=== PATIENT | female | born 1980 | race Caucasian/White ===

== ENCOUNTER 2022-01-02 20:39 | Inpatient (IN) | payer MEDICAID, SELFPAY ==
[2022-01-02 20:48] VITALS: BMI 28.3
[2022-01-02 21:04] VITALS: BP 168/98; PULSE 128; RESP 18; TEMP 37.6; O2SAT 96
[2022-01-02 21:18] LABS: MANUAL DIFF FLAG NO
[2022-01-02 21:19] LABS: Basophils Percent Auto 0.3 % (0-2); Eosinophils Absolute Auto 0.1 X10*3/uL (0.0-0.4); Eosinophils Percent Auto 0.6 % (0-4); Hematocrit 36.5 % (37.0-47.0); Hemoglobin 12.4 g/dl (12.0-16.0); Imm Gran Abs Auto 0.03 X10*3/uL (0.00-0.03); Imm Gran Pct Auto 0.3 % (0.0-0.4); Lymphocytes Percent Auto 33.7 % (20-40); Mean Corpuscular Hemoglobin 30.9 pg (27.0-33.0); Monocytes Absolute Auto 0.7 X10*3/uL (0.1-1.2); Monocytes Percent Auto 7.6 % (2-11); Neutrophils Absolute Auto 5.2 x10*3/uL (2.0-8.3); Neutrophils Percent Auto 57.5 % (45-73); Platelet Count 245 X10*3/uL (160-400); Red Blood Count 4.01 X10*6/uL (4.20-5.50); Red Cell Distribution Width 14.5 % (11.0-16.0)
[2022-01-02 21:21] VITALS: PULSE 103
[2022-01-02 21:33] LABS: COVID-19 Test Negative (Negative); IDNOW Serial# 08D9AD1C
[2022-01-02 21:37] LABS: Ethanol 230 mg/dL
[2022-01-02 21:41] LABS: Alanine Aminotransferase 26 U/L (0-31); Albumin Level 4.1 g/dL (3.5-5.0); Alkaline Phosphatase 109 U/L (39-117); Anion Gap 15 (12-20); Aspartate Amino Transferase 32 U/L (5-31); Bilirubin Direct 0.2 mg/dL (0.0-0.5); Bilirubin Total 0.4 mg/dL (0.0-1.0); Blood Urea Nitrogen 6 mg/dL (9-16); Calcium 8.9 mg/dL (8.4-10.2); Carbon Dioxide 23 mmol/L (22-29); Chloride 108 mmol/L (96-108); Creatinine Clr Calc Pharmacy 84.1; Estimated Glomerular Filt Rate > 60; Glucose Random 119 mg/dL (60-115); Magnesium 1.8 mg/dL (1.6-2.6); Sodium 143 mmol/L (135-145)
[2022-01-02 21:58] LABS: Appearance Urine CLEAR; Color Urine YELLOW; Glucose Urine UA NEG (NEG); Leukocyte Esterase Urine NEG (NEG); Nitrite Urine NEG (NEG); Urine Blood NEG (NEG); Urine Ketones 5 MG/DL (NEG); Urine Protein TRACE MG/DL (NEG-TRACE)
[2022-01-02 22:00] LABS: UPreg QC Valid YES; Urine Pregnancy NEGATIVE (NEGATIVE)
[2022-01-02 22:14] LABS: Amphetamine Screen Urine Not Detected (Not Detect); Barbiturates, Urine Not Detected (Not Detect); Benzodiazepines Screen Urine Not Detected (Not Detect); Cannabinoid Screen Urine POSITIVE (Not Detect); Cocaine Screen Urine Not Detected (Not Detect); Fentanyl, urine Not Detected (Not Detect); Opiate Screen Urine Not Detected (Not Detect); Phencyclidine Screen Urine Not Detected (Not Detect)
[2022-01-02] MEDS: LORazepam 1 MG TABLET 2 MG PO (22:46)
--- NOTE | 2022-01-02 22:47 | ED_ITS ---
HPI - Psych General Chief Complaint: Psychiatric Symptoms Stated Complaint: SI Time Seen by Provider: 01/02/22 22:36 Source: patient and EMS Mode of arrival: EMS Limitations: other (Very anxious) History of Present Illness HPI Narrative: Patient comes to the emergency room by EMS. Earlier this afternoon, patient star alked to a [facility] office in [place], dated that she has tried killing herself by hanging, she has tried 2 days in a row. Patient has been off her medications. Patient was Section 12 and EMS brought the patient to emergency room. Patient denies homicidal ideation Related Data Allergies Allergy/AdvReac Type Severity Reaction Status Date / Time No Known Allergies Allergy Verified 01/02/22 20:52 Review of Systems Review of Systems: Constitutional : No Weight loss, No Fever, No Chills, No Night Sweats, No Fatigue, No Malaise ENT/Mouth : No Hearing loss, No Ear Pain, No Nasal Congestion, No Sinus Pain, No Hoarseness, No sore throat, No Rhinorrhea, No Swallowing Difficulty Eyes: No Eye Pain, No Swelling, No Redness, No Foreign Body, No Discharge, No Vision Changes Cardiovascular : No Chest Pain, No SOB, No Dyspnea on Exertion, No Orthopnea, No Edema, No Palpitations Respiratory : No Cough, No Sputum, No Wheezing, No Smoke Exposure, No Dyspnea Gastrointestinal : No Nausea, No Vomiting, No Diarrhea, No Constipation, No abdominal Pain, No Hematochezia, No Melena Genitourinary : no irregular bleeding, No Dysuria, No Urinary Frequency, No Hematuria, No Urinary Incontinence, No Urgency, No Flank Pain, No Urinary Flow Changes, No Hesitancy Musculoskeletal : No joint pain, No Myalgias, No Joint Swelling Skin : No Skin Lesions, No rash Neuro : No Weakness, No Numbness, No Paresthesias, No Loss of Consciousness, No Dizziness, No Headache Psych : Complaining of anxiety, depression, suicidal ideation, no homicidal ideation, struggling with alcohol abuse Heme/Lymph: No Bruising, No Bleeding,No Lymphadenopathy Endocrine : No Polyuria, No Polydipsia, No Temperature Intolerance PMFSH Past Medical History Medical History Alcohol abuse Depression Social History Social History Advance Directives: No Advance Directives Information Provided: Yes Physical Exam Vital Signs: Vital Signs: Last Vital Signs Temp 98.9 F 01/03/22 01:49 Pulse 110 H 01/03/22 01:49 Resp 20 01/03/22 01:49 BP 148/96 H 01/03/22 01:49 Pulse Ox 96 01/03/22 01:49 BMI result Body Mass Index 28.3 Const: Other: Appearance: Alert. Oriented X3. Very anxious, crying, hyperventilating, pacing Eyes: Pupils equal, round and reactive to light. ENT: Pharynx normal. Neck: Normal inspection. Neck supple. No lymph nodes noted. No crepitus CVS: Normal heart rate and rhythm. Pulses normal. Normal S1 and S2 Respiratory: No respiratory distress. Breath sounds normal. No Wheezing. No rales Abdomen: Soft and nontender. No rigidity. No distention. Skin: Skin warm and dry. Normal skin color. Normal skin turgor. Extremities: No lower extremity edema. No Lacerations. No Rash Neuro: Oriented X 3. No motor deficit. No sensory deficit. Moving all extremities. No slurred speech. CN 2 through 12 grossly intact Psych: calm, trying to cooperate, patient is very anxious, hyperventilating Course Course Course Narrative: Patient is on a Section 12. Patient will be given Ativan 2 mg p.o. Q 4-6 hours p.r.n. severe anxiety. [facility] network consult has been done in [place] office. They will continue following up. Patient as an inpatient bed search now. Patient's potassium had to be corrected with p.o., now recheck, 3.5. Physician observation started at 22:[address] out [address] Garcia [facility] - Psych Lab Data Result diagrams: 01/02/22 21:13 01/03/22 01:42 Labs: Lab Results 01/02/22 01/02/22 01/02/22 Range/Units 21:13 21:13 21:13 WBC 9.0 (4.8-10.8) X10*3/uL RBC 4.01 L (4.20-5.50) X10*6/uL Hgb 12.4 (12.0-16.0) g/dl Hct 36.5 L (37.0-47.0) % MCV 91.0 (80.0-98.0) fL MCH 30.9 (27.0-33.0) pg MCHC 34.0 (31.0-35.0) g/dl RDW 14.5 (11.0-16.0) % Plt Count 245 (160-400) X10*3/uL MPV 10.0 (9.4-12.3) fL Immature Gran % (Auto) 0.3 (0.0-0.4) % Neut % (Auto) 57.5 (45-73) % Lymph % (Auto) 33.7 (20-40) % [place] % (Auto) 7.6 (2-11) % Eos % (Auto) 0.6 (0-4) % Baso % (Auto) 0.3 (0-2) % Lymph # (Auto) 3.0 (1.2-4.9) X10*3/uL [place] # (Auto) 0.7 (0.1-1.2) X10*3/uL Eos # (Auto) 0.1 (0.0-0.4) X10*3/uL Baso # (Auto) 0.0 (0.0-0.2) X10*3/uL Abs Immat Gran (auto) 0.03 (0.00-0.03) X10*3/uL Absolute Neuts (auto) 5.2 (2.0-8.3) x10*3/uL Absolute Nucleated RBC 0.000 (0.0-0.012) X10*3/uL Nucleated RBC % (auto) 0.0 (0.0-0.2) /100WBC Sodium 143 (135-145) mmol/L Potassium 3.0 L (3.3-5.1) mmol/L Chloride 108 (96-108) mmol/L Carbon Dioxide 23 (22-29) mmol/L Anion Gap 15 (12-20) BUN 6 L (9-16) mg/dL Creatinine 0.80 (0.5-1.4) mg/dL Estim Creat Clear Calc 84.1 Estimated GFR > 60 Random Glucose 119 H (60-115) mg/dL Calcium 8.9 (8.4-10.2) mg/dL Magnesium 1.8 (1.6-2.6) mg/dL Total Bilirubin 0.4 (0.0-1.0) mg/dL Direct Bilirubin 0.2 (0.0-0.5) mg/dL AST 32 H (5-31) U/L ALT 26 (0-31) U/L Alkaline Phosphatase 109 (39-117) U/L Total Protein 7.0 (6.5-8.0) g/dL Albumin 4.1 (3.5-5.0) g/dL Urine Color Urine Appearance Urine pH (5.0-8.0) Ur Specific [place] (1.005-1.025) Urine Protein (NEG-TRACE) MG/DL Urine Glucose (UA) (NEG) MG/DL Urine Ketones (NEG) MG/DL Urine Blood (NEG) Urine Nitrite (NEG) Ur Leukocyte Esterase (NEG) Urine Test (NEGATIVE) Urine Opiates Screen (Not Detect) Urine Fentanyl Screen (Not Detect) Acetaminophen < 1 (<30) mcg/mL Ur Barbiturates Screen (Not Detect) Ur Phencyclidine Scrn (Not Detect) Ur Amphetamines Screen (Not Detect) U Benzodiazepines Scrn (Not Detect) Urine Cocaine Screen (Not Detect) U Marijuana (THC) Screen (Not Detect) Ethyl Alcohol mg/dL COVID-19 (AMI) Negative (Negative) COVID-19 Clin Com See Note 01/02/22 01/02/22 01/02/22 Range/Units 21:13 21:52 21:52 WBC (4.8-10.8) X10*3/uL RBC (4.20-5.50) X10*6/uL Hgb (12.0-16.0) g/dl Hct (37.0-47.0) % MCV (80.0-98.0) fL MCH (27.0-33.0) pg MCHC (31.0-35.0) g/dl RDW (11.0-16.0) % Plt Count (160-400) X10*3/uL MPV (9.4-12.3) fL Immature Gran % (Auto) (0.0-0.4) % Neut % (Auto) (45-73) % Lymph % (Auto) (20-40) % [place] % (Auto) (2-11) % Eos % (Auto) (0-4) % Baso % (Auto) (0-2) % Lymph # (Auto) (1.2-4.9) X10*3/uL [place] # (Auto) (0.1-1.2) X10*3/uL Eos # (Auto) (0.0-0.4) X10*3/uL Baso # (Auto) (0.0-0.2) X10*3/uL Abs Immat Gran (auto) (0.00-0.03) X10*3/uL Absolute Neuts (auto) (2.0-8.3) x10*3/uL Absolute Nucleated RBC (0.0-0.012) X10*3/uL Nucleated RBC % (auto) (0.0-0.2) /100WBC Sodium (135-145) mmol/L Potassium (3.3-5.1) mmol/L Chloride (96-108) mmol/L Carbon Dioxide (22-29) mmol/L Anion Gap (12-20) BUN (9-16) mg/dL Creatinine (0.5-1.4) mg/dL Estim Creat Clear Calc Estimated GFR Random Glucose (60-115) mg/dL Calcium (8.4-10.2) mg/dL Magnesium (1.6-2.6) mg/dL Total Bilirubin (0.0-1.0) mg/dL Direct Bilirubin (0.0-0.5) mg/dL AST (5-31) U/L ALT (0-31) U/L Alkaline Phosphatase (39-117) U/L Total Protein (6.5-8.0) g/dL Albumin (3.5-5.0) g/dL Urine Color Urine Appearance Urine pH (5.0-8.0) Ur Specific [place] (1.005-1.025) Urine Protein (NEG-TRACE) MG/DL Urine Glucose (UA) (NEG) MG/DL Urine Ketones (NEG) MG/DL Urine Blood (NEG) Urine Nitrite (NEG) Ur Leukocyte Esterase (NEG) Urine Test NEGATIVE (NEGATIVE) Urine Opiates Screen Not Detected (Not Detect) Urine Fentanyl Screen Not Detected (Not Detect) Acetaminophen (<30) mcg/mL Ur Barbiturates Screen Not Detected (Not Detect) Ur Phencyclidine Scrn Not Detected (Not Detect) Ur Amphetamines Screen Not Detected (Not Detect) U Benzodiazepines Scrn Not Detected (Not Detect) Urine Cocaine Screen Not Detected (Not Detect) U Marijuana (THC) Screen POSITIVE H (Not Detect) Ethyl Alcohol 230 mg/dL COVID-19 (AMI) (Negative) COVID-19 Clin Com 01/02/22 01/03/22 Range/Units 21:52 01:42 WBC (4.8-10.8) X10*3/uL RBC (4.20-5.50) X10*6/uL Hgb (12.0-16.0) g/dl Hct (37.0-47.0) % MCV (80.0-98.0) fL MCH (27.0-33.0) pg MCHC (31.0-35.0) g/dl RDW (11.0-16.0) % Plt Count (160-400) X10*3/uL MPV (9.4-12.3) fL Immature Gran % (Auto) (0.0-0.4) % Neut % (Auto) (45-73) % Lymph % (Auto) (20-40) % [place] % (Auto) (2-11) % Eos % (Auto) (0-4) % Baso % (Auto) (0-2) % Lymph # (Auto) (1.2-4.9) X10*3/uL [place] # (Auto) (0.1-1.2) X10*3/uL Eos # (Auto) (0.0-0.4) X10*3/uL Baso # (Auto) (0.0-0.2) X10*3/uL Abs Immat Gran (auto) (0.00-0.03) X10*3/uL Absolute Neuts (auto) (2.0-8.3) x10*3/uL Absolute Nucleated RBC (0.0-0.012) X10*3/uL Nucleated RBC % (auto) (0.0-0.2) /100WBC Sodium 141 (135-145) mmol/L Potassium 3.5 (3.3-5.1) mmol/L Chloride 107 (96-108) mmol/L Carbon Dioxide 23 (22-29) mmol/L Anion Gap 15 (12-20) BUN 6 L (9-16) mg/dL Creatinine 0.72 (0.5-1.4) mg/dL Estim Creat Clear Calc 93.4 Estimated GFR > 60 Random Glucose 96 (60-115) mg/dL Calcium 8.4 (8.4-10.2) mg/dL Magnesium (1.6-2.6) mg/dL Total Bilirubin (0.0-1.0) mg/dL Direct Bilirubin (0.0-0.5) mg/dL AST (5-31) U/L ALT (0-31) U/L Alkaline Phosphatase (39-117) U/L Total Protein (6.5-8.0) g/dL Albumin (3.5-5.0) g/dL Urine Color YELLOW Urine Appearance CLEAR Urine pH 7.0 (5.0-8.0) Ur Specific [place] 1.010 (1.005-1.025) Urine Protein TRACE (NEG-TRACE) MG/DL Urine Glucose (UA) NEG (NEG) MG/DL Urine Ketones 5 (NEG) MG/DL Urine Blood NEG (NEG) Urine Nitrite NEG (NEG) Ur Leukocyte Esterase NEG (NEG) Urine Test (NEGATIVE) Urine Opiates Screen (Not Detect) Urine Fentanyl Screen (Not Detect) Acetaminophen (<30) mcg/mL Ur Barbiturates Screen (Not Detect) Ur Phencyclidine Scrn (Not Detect) Ur Amphetamines Screen (Not Detect) U Benzodiazepines Scrn (Not Detect) Urine Cocaine Screen (Not Detect) U Marijuana (THC) Screen (Not Detect) Ethyl Alcohol mg/dL COVID-19 ([facility]I) (Negative) COVID-19 Clin Com Discharge Plan Discharge Clinical Impression: Depression, Suicidal ideation, Acute hypokalemia Patient Disposition: Still a Patient
[2022-01-02] MEDS: Potassium Chloride Packet 20 MEQ PACKET 40 MEQ PO (22:59)
[2022-01-02 23:29] LABS: Acetaminophen LAB < 1 mcg/mL (<30)
[2022-01-03 01:49] VITALS: BP 148/96; PULSE 110; RESP 20; TEMP 37.2; O2SAT 96
[2022-01-03 02:07] LABS: Anion Gap 15 (12-20); Blood Urea Nitrogen 6 mg/dL (9-16); Calcium 8.4 mg/dL (8.4-10.2); Carbon Dioxide 23 mmol/L (22-29); Chloride 107 mmol/L (96-108); Creatinine Clr Calc Pharmacy 93.4; Estimated Glomerular Filt Rate > 60; Glucose Random 96 mg/dL (60-115); Potassium 3.5 mmol/L (3.3-5.1); Sodium 141 mmol/L (135-145)
--- NOTE | 2022-01-03 06:32 | PC.NURSE ---
Patient slept through the night, Ativan 2 mg PO was administered at 2246 with positive effect, K 40 Meq administered at 2259 with + effect, Potassium 3.5, disposition per [facility] is section 12 inpatient bed search, asymptomatic of withdrawal at this time, behavior labile but non concerning, med rec completed/pending provider's approval, will continue to monitor.
[2022-01-03] MEDS: LORazepam 1 MG TABLET 2 MG PO ×3 (06:49→19:55)
[2022-01-03 06:52] VITALS: BP 151/110; PULSE 116; RESP 16; TEMP 36.6; O2SAT 99
--- NOTE | 2022-01-03 07:06 | PC.NURSE ---
patient appears to remain asleep at present respirations are even and unlabored patient appears in no distress
--- NOTE | 2022-01-03 10:59 | PHA.MEDREC ---
Pharmacy Consult ? Medication Reconciliation Pharmacy has completed the medication reconciliation. Spoke with patient in [facility] and also called [facility] pharmacy. Pt states she is in her 3rd week of titration for lamictal ( start at 25 mg daily and increase by 25 mg weekly up to 100 mg daily). Pt reports effexor was switched to pristiq.
[2022-01-03] MEDS: Omeprazole 40 MG CAPSULE.DR PO (11:47)
[2022-01-03] MEDS: lamoTRIgine 25 MG TABLET 75 MG PO (11:47)
[2022-01-03] MEDS: Folic Acid 1 MG TABLET PO (11:47)
[2022-01-03] MEDS: Thiamine HCL 100 MG TABLET PO (11:47)
[2022-01-03] MEDS: Gabapentin 600 MG TABLET PO ×2 (13:52→19:55)
[2022-01-03 14:00] VITALS: BP 153/104; PULSE 109; TEMP 36.8; O2SAT 97
[2022-01-03 14:30] LABS: Anion Gap 14 (12-20); Blood Urea Nitrogen 7 mg/dL (9-16); Calcium 9.1 mg/dL (8.4-10.2); Carbon Dioxide 24 mmol/L (22-29); Chloride 103 mmol/L (96-108); Creatinine Clr Calc Pharmacy 92.1; Estimated Glomerular Filt Rate > 60; Glucose Random 94 mg/dL (60-115); Potassium 3.6 mmol/L (3.3-5.1); Sodium 137 mmol/L (135-145)
[2022-01-03] MEDS: Melatonin 3 MG TABLET 9 MG PO (19:55)
[2022-01-03 19:56] VITALS: BP 171/108; PULSE 97; RESP 20; TEMP 36.8; O2SAT 99
[2022-01-04] MEDS: LORazepam 1 MG TABLET 2 MG PO ×2 (01:49→20:06)
[2022-01-04 01:51] VITALS: BP 152/108; PULSE 113; RESP 16; TEMP 36.8; O2SAT 95
--- NOTE | 2022-01-04 05:02 | PC.NURSE ---
atient slept through the night, Ativan 2 mg PO was administered at 1955 and 0149 with positive effect, disposition per [facility] is section 12 inpatient bed search, behavior non concerning, med rec completed/pending provider's approval, will continue to monitor.
[2022-01-04] MEDS: Omeprazole 40 MG CAPSULE.DR PO (06:24)
--- NOTE | 2022-01-04 07:07 | PC.NURSE ---
patient appears to remain asleep at present respirations are even and unlabored patient appears in no distress
[2022-01-04] MEDS: Gabapentin 600 MG TABLET PO ×3 (08:40→20:05)
[2022-01-04] MEDS: lamoTRIgine 25 MG TABLET 75 MG PO (08:40)
[2022-01-04] MEDS: Thiamine HCL 100 MG TABLET PO (08:40)
[2022-01-04] MEDS: Folic Acid 1 MG TABLET PO (08:40)
[2022-01-04 12:37] VITALS: BP 157/112; PULSE 107; O2SAT 97
[2022-01-04 16:43] VITALS: BP 157/101; PULSE 103; RESP 16; TEMP 36.6; O2SAT 96
[2022-01-04 20:03] VITALS: BP 145/109; PULSE 102; RESP 20; O2SAT 99
[2022-01-04] MEDS: Melatonin 3 MG TABLET 9 MG PO (20:05)
--- NOTE | 2022-01-05 | ECG_ITS ---
Test Reason : MEDICAL CLEARANCE Blood Pressure : / mmHG Vent. Rate : 103 BPM Atrial Rate : 103 BPM P-R Int : 154 ms QRS Dur : 078 ms QT Int : 348 ms P-R-T Axes : 061 012 039 degrees QTc Int : 455 ms Sinus tachycardia Septal infarct , age undetermined Abnormal ECG No previous ECGs available Referred By: Avila Riggins Electronically Signed By:Nolan Chino
[2022-01-05 06:14] VITALS: BP 143/98; PULSE 105; RESP 16; TEMP 36.8; O2SAT 96
[2022-01-05] MEDS: Omeprazole 40 MG CAPSULE.DR PO (06:18)
--- NOTE | 2022-01-05 06:36 | PC.NURSE ---
Patient slept through the night, no distress observed/reported, asymptomatic of withdrawal, medication compliant, disposition per [facility] is section 12 inpatient bed search, no update on bed search, behavior non concerning, VSS, will continue to monitor.
--- NOTE | 2022-01-05 07:17 | PC.NURSE ---
patient appears to remain asleep at present respirations are even and unlabored patient appears in no distress
[2022-01-05] MEDS: Folic Acid 1 MG TABLET PO (08:04)
[2022-01-05] MEDS: Thiamine HCL 100 MG TABLET PO (08:04)
[2022-01-05] MEDS: Gabapentin 600 MG TABLET PO ×3 (08:04→20:49)
[2022-01-05] MEDS: lamoTRIgine 25 MG TABLET 75 MG PO (08:05)
[2022-01-05] MEDS: hydrOXYzine HCL 50 MG TABLET PO (10:11)
--- NOTE | 2022-01-05 12:13 | PC.NURSE ---
patient required redirection two times today this visit for keeping appropriate boundaries w darlene during visit (not laying or sitting in bed with hands visible not under covers)
[2022-01-05 18:00] VITALS: BP 149/101; PULSE 109; RESP 18; TEMP 37.1; O2SAT 99
--- NOTE | 2022-01-05 19:40 | PC.ADMIT ---
Patient 41 year old ,with history of HTN and asthma who had seen in the ED for depression and SI . Patient reported feeling depressed , worthless , being ignored , isolated and decide to suicide herself .Patient has a distressed affect with poor judgment and relapsed on alcohol abuse for coping . Patient is alert, with auditory hallucination and oriented x4. No complaint of chest pain, no SOB, no cough , no nausea,no vomiting, no diarrhea. HS,LS,BS not listen to . Patient has a round bruise in the left knee and ambulates independently with steady gait. Patient was transferred via wheelchair to and was admitted on the unit today at 17:10 PM for continue care and better management.
[2022-01-05] MEDS: LORazepam 1 MG TABLET 2 MG PO (20:48)
[2022-01-05] MEDS: Melatonin 3 MG TABLET 9 MG PO (20:50)
[2022-01-06 06:00] VITALS: BP 146/97; PULSE 104; RESP 18; TEMP 36.7; O2SAT 96
[2022-01-06] MEDS: Omeprazole 40 MG CAPSULE.DR PO (06:38)
[2022-01-06] MEDS: Thiamine HCL 100 MG TABLET PO (08:29)
[2022-01-06] MEDS: Multivitamin TABLET 1 TAB PO (08:29)
[2022-01-06] MEDS: lamoTRIgine 25 MG TABLET 75 MG PO (08:29)
[2022-01-06] MEDS: Gabapentin 600 MG TABLET PO ×3 (08:29→20:40)
[2022-01-06] MEDS: Folic Acid 1 MG TABLET PO (08:29)
[2022-01-06 09:14] LABS: Estimated Average Glucose 108 mg/dL; Hemoglobin A1c % 5.4 %
[2022-01-06 09:27] LABS: Cholesterol 216 mg/dL; HDL Cholesterol 80 mg/dL; LDL Cholesterol Calculated 109 mg/dl; Magnesium 1.9 mg/dL (1.6-2.6); Triglycerides 138 mg/dL
[2022-01-06 09:47] LABS: Free T4 (Free Thyroxine) 0.74 ng/dL (0.71-1.85); Thyroid Stimulating Hormone 0.68 uIU/mL (0.32-4.0)
[2022-01-06 10:19] LABS: Folate 15.6 ng/mL (> or = 4.0); Vitamin B12 355 pg/mL (200-900)
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
[2022-01-06 14:27] VITALS: BP 162/88; PULSE 94; RESP 16; O2SAT 95
[2022-01-06 18:00] VITALS: BP 170/81; PULSE 110; TEMP 36.4
[2022-01-06] MEDS: traZODone HCL 50 MG TABLET PO ×2 (20:39→21:45)
[2022-01-06] MEDS: Melatonin 3 MG TABLET 9 MG PO (20:39)
[2022-01-06 23:30] VITALS: BP 140/94; PULSE 117; TEMP 36.9; O2SAT 97
[2022-01-06] MEDS: Acetaminophen 325 MG TABLET 650 MG PO (23:39)
[2022-01-06] MEDS: hydrOXYzine HCL 25 MG TABLET PO (23:39)
[2022-01-07] MEDS: cloNIDine HCL 0.1 MG TABLET 0.05 MG PO (01:35)
[2022-01-07 06:00] VITALS: BP 124/79; PULSE 94; RESP 18; TEMP 36.6; O2SAT 97
[2022-01-07] MEDS: Acetaminophen 325 MG TABLET 650 MG PO ×2 (06:27→16:54)
[2022-01-07] MEDS: Omeprazole 40 MG CAPSULE.DR PO (06:27)
[2022-01-07] MEDS: Folic Acid 1 MG TABLET PO (08:37)
[2022-01-07] MEDS: Gabapentin 600 MG TABLET PO ×3 (08:37→20:54)
[2022-01-07] MEDS: lamoTRIgine 25 MG TABLET 75 MG PO (08:37)
[2022-01-07] MEDS: Thiamine HCL 100 MG TABLET PO (08:38)
[2022-01-07] MEDS: Multivitamin TABLET 1 TAB PO (08:38)
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
[2022-01-07] MEDS: hydrOXYzine HCL 25 MG TABLET PO (14:51)
[2022-01-07] MEDS: DULoxetine HCl 20 MG CAPSULE.DR PO (16:54)
[2022-01-07] MEDS: Melatonin 3 MG TABLET 9 MG PO (20:54)
[2022-01-07] MEDS: traZODone HCL 50 MG TABLET PO ×2 (20:54→22:05)
[2022-01-07 21:55] VITALS: BP 141/80; PULSE 80; TEMP 36.4; O2SAT 97
[2022-01-08] MEDS: Omeprazole 40 MG CAPSULE.DR PO (06:06)
[2022-01-08 07:00] VITALS: BMI 26.2
[2022-01-08] MEDS: Gabapentin 600 MG TABLET PO ×3 (08:11→18:37)
[2022-01-08] MEDS: lamoTRIgine 25 MG TABLET 75 MG PO (08:11)
[2022-01-08] MEDS: DULoxetine HCl 30 MG CAPSULE.DR PO (08:11)
[2022-01-08] MEDS: Thiamine HCL 100 MG TABLET PO (08:11)
[2022-01-08] MEDS: Folic Acid 1 MG TABLET PO (08:11)
[2022-01-08] MEDS: Multivitamin TABLET 1 TAB PO (08:11)
[2022-01-08 08:13] VITALS: BP 142/87; PULSE 93; RESP 16; O2SAT 98
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
[2022-01-08 13:00] VITALS: BP 138/96; PULSE 110
[2022-01-08 18:00] VITALS: BP 149/97; PULSE 111; TEMP 36.6; O2SAT 97
[2022-01-08] MEDS: Acetaminophen 325 MG TABLET 650 MG PO (19:15)
[2022-01-08] MEDS: cloNIDine HCL 0.1 MG TABLET 0.05 MG PO (21:18)
[2022-01-08] MEDS: traZODone HCL 50 MG TABLET PO ×2 (21:18→23:02)
[2022-01-08] MEDS: Melatonin 3 MG TABLET 9 MG PO (21:19)
[2022-01-09] MEDS: Omeprazole 40 MG CAPSULE.DR PO (06:12)
[2022-01-09 07:01] VITALS: BP 122/77; PULSE 95; RESP 15; TEMP 36.4; O2SAT 97
[2022-01-09] MEDS: Multivitamin TABLET 1 TAB PO (08:28)
[2022-01-09] MEDS: lamoTRIgine 25 MG TABLET 75 MG PO (08:28)
[2022-01-09] MEDS: Thiamine HCL 100 MG TABLET PO (08:28)
[2022-01-09] MEDS: Folic Acid 1 MG TABLET PO (08:28)
[2022-01-09] MEDS: DULoxetine HCl 60 MG CAPSULE.DR PO (08:28)
[2022-01-09] MEDS: Gabapentin 600 MG TABLET PO (08:28)
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
[2022-01-09] MEDS: Naloxone HCl Nasal TAKE HOME 4 MG SPRAY NOSTRILALT (11:27)
--- NOTE | 2022-01-09 13:03 | MHC.RECOVSUP ---
PT.IS A 41YR OLD FEMALE WHO CAME TO THE ED FOR PSYCHIATRIC SYMPTOMS. PT WAS ADMITTED TO . I WAS ASKED TO SEE PT. BY MELY FROM THE CARE TEAM.THIS LAP MAKER WENT TO SEE PT. AND EXPLAINED TO HER WHAT I DO IN THE HOSPITAL. PT. STATED THAT SHE WAS LIVING IN A TENT WITH HER BOYFRIEND. BUT NOW IS LIVING WITH A FRIEND IN [facility]. PT. IS VERY INTERESTED IN HAVING A LAP MAKER. I EXPLAINED THAT I WILL MAKE A REFERRAL FOR HER TODAY. ALSO GAVE INFORMATION AND RESOURCES.
== END 2022-01-09 13:00 | disposition home or self-care (01) | DRG 754 ==
LOC: HO.ED 22:53 → HO.PM5 01-05 16:06
PROVIDERS: Admitting Provider Clinical Nurse Specialist Psychiatric/Mental Health, Adult; Emergency Provider Emergency Medicine; Visit Provider Clinical Nurse Specialist Psychiatric/Mental Health, Adult
DX: F32.A Depression, unspecified (principal); R45.851 Suicidal ideations; E87.6 Hypokalemia; F10.10 Alcohol abuse, uncomplicated; F43.12 Post-traumatic stress disorder, chronic; M79.7 Fibromyalgia; Z20.822 Contact with and (suspected) exposure to COVID-19; Z91.51 Personal history of suicidal behavior; Z79.899 Other long term (current) drug therapy
CPT/HCPCS: 36415; 80048; 80061; 80076; 80143; 80307; 81003; 81025; 82077; 82607; 82746; 83036; 83735; 84439; 84443; 85025; 87635; 93005; 99285

== ENCOUNTER 2022-02-27 12:47 | Inpatient (IN) | payer OTHER, MEDICAID, SELFPAY ==
[2022-02-27 12:54] VITALS: BP 149/99; PULSE 111; RESP 24; TEMP 37.6; O2SAT 100; BMI 26.5
--- NOTE | 2022-02-27 12:59 | ED.PSYCH ---
HPI - Psych General Chief Complaint: Psychiatric Symptoms Stated Complaint: SI Time Seen by Provider: 02/27/22 12:58 Source: patient Mode of arrival: ambulatory Limitations: no limitations History of Present Illness HPI Narrative: 41-year-old female with a history of PTSD, depression, bipolar disorder, fibromyalgia, alcohol abuse presents to the ER for evaluation of worsening depression and new onset of suicidal ideation. She presents with her moose who helps provide history. He reports that she has been off of her medications for the last 2 days because she ran out. She has been drinking heavily. When he woke up this morning she was already into her stash of alcohol and was intoxicated. She was banging her head against the door and saying she was going to hurt herself. The fiancee reports that a few nights ago she took a large amount of her gabapentin. He tries to keep her medications locked up and hit in because she she has tried overdose before. Patient is tearful and asking to go home. Patient was recently seen here in December and admitted to the psychiatry service for 3 days. She has a history of multiple suicide attempts in the past, last in 2017/2018 by overdosing on pills. Her last psychiatric hospitalization prior to the one in December was about 4 years ago. MD complaint: suicidal ideation and feels depressed Related Data Previous Rx's Medication Instructions Recorded albuterol sulfate 90 mcg/actuation 2 puff inhalation Q4H PRN 01/09/22 aerosol inhaler (ProAir HFA) Shortness Of Breath 30 days #6.7 grams clonidine HCl 0.1 mg tablet 0.05 mg PO TID PRN anxiety 30 days 01/09/22 #90 tabs duloxetine 60 mg capsule,delayed 60 mg PO DAILY 30 days #30 caps 01/09/22 release folic acid 1 mg tablet 1 mg PO DAILY 30 days #30 tabs 01/09/22 gabapentin 600 mg tablet 600 mg PO TID 30 days #90 tabs 01/09/22 hydroxyzine HCl 25 mg tablet 25 mg PO TID PRN Anxiety 30 days 01/09/22 #90 tabs lamotrigine 100 mg tablet 100 mg PO DAILY 30 days #30 tabs 01/09/22 lamotrigine 25 mg tablet (Lamictal) 75 mg PO DAILY 7 days #21 tabs 01/09/22 melatonin 10 mg tablet 10 mg PO BEDTIME PRN sleep 30 days 01/09/22 #30 tabs omeprazole 40 mg capsule,delayed 40 mg PO DAILY 30 days #30 caps 01/09/22 release thiamine HCl (vitamin B1) 100 mg 100 mg PO DAILY 30 days #30 tabs 01/09/22 tablet trazodone 50 mg tablet 50 mg PO BEDTIME PRN Insomnia 30 01/09/22 days #30 tabs Allergies Allergy/AdvReac Type Severity Reaction Status Date / Time No Known Allergies Allergy Verified 01/02/22 20:52 Review of Systems Review of Systems: Constitutional: No Fever, No Chills ENT/Mouth: No sore throat, No Rhinorrhea Cardiovascular: No Chest Pain, No SOB Respiratory: No Cough, No Sputum, No Wheezing, No dyspnea Gastrointestinal: No Nausea, No Vomiting, No Diarrhea, No abdominal Pain Genitourinary: No Dysuria, No Urinary Frequency, No Hematuria Musculoskeletal: No joint pain, No Myalgias Skin: No Skin Lesions, No rash Neuro: No Weakness, No Numbness, No Dizziness, No Headache Psych: + Anxiety/Panic, + Depression, +SI, No HI, No AH, No VH Heme/Lymph: No Bruising Endocrine: No Polyuria, No Polydipsia [facility] Past Medical History Medical History (Updated 02/27/22 @ 14:59 by APOLLO Easton) Alcohol abuse Chronic post-traumatic stress disorder (PTSD) Depression Fibromyalgia Social History Social History Household Members: Spouse Household Members Other:: yes. Housing: Other Housing Other:: Mobile Home. Do you presently have visiting nurse or other home services: No Patient Tobacco Use Status: Former Tobacco user Quit Date: No. Tobacco use type: Cigarette e-Cigarette/Vaping Use: Never Used Second Hand Smoke Exposure: Yes Substance Use Type: Marijuana and Caffiene Advance Directives: No Advance Directives Information Provided: No service: No Sexual orientation: Straight/Heterosexual Physical Exam Vital Signs: Vital Signs: Last Vital Signs Temp 99.6 F 02/27/22 12:54 Pulse 111 H 02/27/22 12:54 Resp 24 H 02/27/22 12:54 BP 149/99 H 02/27/22 12:54 Pulse Ox 100 02/27/22 12:54 O2 Del Method 02/27/22 12:54 BMI result Body Mass Index 26.5 Appearance: Alert. Oriented X3. Anxious, rocking back and forth on the bed. Eyes: Pupils equal, round and reactive to light. ENT: Pharynx normal. No upper dentition. Mucous moist mucous membranes. Smells of alcohol Neck: Normal inspection. Neck supple. CVS: Tachycardic, regular rhythm. Pulses normal. Respiratory: No respiratory distress. Breath sounds normal. Abdomen: Soft and nontender. +BS x4 Skin: Skin warm and dry. Normal skin color. Normal skin turgor. No rashes. Extremities: No lower extremity edema. Neuro/pysch: Oriented X 3. Anxious, hyperverbal, focused on leaving the emergency department. Makes eye contact, normal speech. Cranial nerves X-XII are intact. Moves all extremities, nonfocal. Course Course Course Narrative: 41-year-old female with history of alcoholism, fibromyalgia, bipolar disorder, PTSD, depression presenting to the ER with suicidal ideation, concerning behaviors per her so the onset a and alcohol intoxication. Patient smells of alcohol, is anxious and tearful, asking to go home. Her fiance aches breast concerning behaviors including intentional overdose of her gabapentin a few days ago and self-destructive behavior. Will get ETOH level, basic lab workup and have crisis team evaluate her when she is sober. Reevaluation(s) Reevaluation #1: A alcohol level positive at 405. U tox is positive for cocaine and marijuana. [place] [address]. No obvious signs of infection at this time. Urinalysis is negative. She denies any fever, cough, shortness of breath. No nausea, vomiting or diarrhea. Possible stress reaction. Will continue to monitor. Will place patient in physician observation at this time. Patient needs more time to metabolize substances in become sober for crisis evaluation. At the time of physician observation initiation patient was alert and oriented, anxious and wanting to go home. Tachycardia has resolved, heart rates high 90s. Lungs are clear. She is nonfocal. Will continue monitor. Time: 15:42 MDM - Psych Lab Data Result diagrams: 02/27/22 13:46 02/27/22 13:46 Labs: Lab Results 02/27/22 02/27/22 02/27/22 Range/Units 13:19 13:19 13:19 WBC (4.8-10.8) X10*3/uL RBC (4.20-5.50) X10*6/uL Hgb (12.0-16.0) g/dl Hct (37.0-47.0) % MCV (80.0-98.0) fL MCH (27.0-33.0) pg MCHC (31.0-35.0) g/dl RDW (11.0-16.0) % Plt Count (160-400) X10*3/uL MPV (9.4-12.3) fL Immature Gran % (Auto) (0.0-0.4) % Neut % (Auto) (45-73) % Lymph % (Auto) (20-40) % Christian % (Auto) (2-11) % Eos % (Auto) (0-4) % Baso % (Auto) (0-2) % Lymph # (Auto) (1.2-4.9) X10*3/uL Christian # (Auto) (0.1-1.2) X10*3/uL Eos # (Auto) (0.0-0.4) X10*3/uL Baso # (Auto) (0.0-0.2) X10*3/uL Abs Immat Gran (auto) (0.00-0.03) X10*3/uL Absolute Neuts (auto) (2.0-8.3) x10*3/uL Absolute Nucleated RBC (0.0-0.012) X10*3/uL Nucleated RBC % (auto) (0.0-0.2) /100WBC Sodium (135-145) mmol/L Potassium (3.3-5.1) mmol/L Chloride (96-108) mmol/L Carbon Dioxide (22-29) mmol/L Anion Gap (12-20) BUN (9-16) mg/dL Creatinine (0.5-1.4) mg/dL Estim Creat Clear Calc Estimated GFR Random Glucose (60-115) mg/dL Calcium (8.4-10.2) mg/dL Magnesium (1.6-2.6) mg/dL Total Bilirubin (0.0-1.0) mg/dL Direct Bilirubin (0.0-0.5) mg/dL AST (5-31) U/L ALT (0-31) U/L Alkaline Phosphatase (39-117) U/L Total Protein (6.5-8.0) g/dL Albumin (3.5-5.0) g/dL Urine Color STRAW Urine Appearance HAZY Urine pH 5.5 (5.0-8.0) Ur Specific [place] <= 1.005 (1.005-1.025) Urine Protein NEG (NEG-TRACE) MG/DL Urine Glucose (UA) NEG (NEG) MG/DL Urine Ketones NEG (NEG) MG/DL Urine Blood NEG (NEG) Urine Nitrite NEG (NEG) Ur Leukocyte Esterase NEG (NEG) Urine Test NEGATIVE (NEGATIVE) Urine Opiates Screen (Not Detect) Urine Fentanyl Screen (Not Detect) Ur Barbiturates Screen (Not Detect) Ur Phencyclidine Scrn (Not Detect) Ur Amphetamines Screen (Not Detect) U Benzodiazepines Scrn (Not Detect) Urine Cocaine Screen (Not Detect) U Marijuana (THC) Screen (Not Detect) Ethyl Alcohol mg/dL COVID-19 ([facility]I) Negative (Negative) COVID-19 Clin Com See Note 02/27/22 02/27/22 02/27/22 Range/Units 13:19 13:46 13:46 WBC 16.1 H (4.8-10.8) X10*3/uL RBC 3.91 L (4.20-5.50) X10*6/uL Hgb 12.2 (12.0-16.0) g/dl Hct 35.8 L (37.0-47.0) % MCV 91.6 (80.0-98.0) fL MCH 31.2 (27.0-33.0) pg MCHC 34.1 (31.0-35.0) g/dl RDW 16.9 H (11.0-16.0) % Plt Count 288 (160-400) X10*3/uL MPV 9.4 (9.4-12.3) fL Immature Gran % (Auto) 0.6 H (0.0-0.4) % Neut % (Auto) 80.0 H (45-73) % Lymph % (Auto) 13.5 L (20-40) % Christian % (Auto) 5.6 (2-11) % Eos % (Auto) 0.1 (0-4) % Baso % (Auto) 0.2 (0-2) % Lymph # (Auto) 2.2 (1.2-4.9) X10*3/uL Christian # (Auto) 0.9 (0.1-1.2) X10*3/uL Eos # (Auto) 0.0 (0.0-0.4) X10*3/uL Baso # (Auto) 0.0 (0.0-0.2) X10*3/uL Abs Immat Gran (auto) 0.09 H (0.00-0.03) X10*3/uL Absolute Neuts (auto) 12.9 H (2.0-8.3) x10*3/uL Absolute Nucleated RBC 0.000 (0.0-0.012) X10*3/uL Nucleated RBC % (auto) 0.0 (0.0-0.2) /100WBC Sodium 146 H (135-145) mmol/L Potassium 3.4 (3.3-5.1) mmol/L Chloride 111 H (96-108) mmol/L Carbon Dioxide 20 L (22-29) mmol/L Anion Gap 18 (12-20) BUN 10 (9-16) mg/dL Creatinine 0.81 (0.5-1.4) mg/dL Estim Creat Clear Calc 80.5 Estimated GFR > 60 Random Glucose 104 (60-115) mg/dL Calcium 8.5 D (8.4-10.2) mg/dL Magnesium 2.0 (1.6-2.6) mg/dL Total Bilirubin 0.4 (0.0-1.0) mg/dL Direct Bilirubin 0.2 (0.0-0.5) mg/dL AST 30 (5-31) U/L ALT 19 (0-31) U/L Alkaline Phosphatase 93 (39-117) U/L Total Protein 7.5 (6.5-8.0) g/dL Albumin 4.6 (3.5-5.0) g/dL Urine Color Urine Appearance Urine pH (5.0-8.0) Ur Specific [place] (1.005-1.025) Urine Protein (NEG-TRACE) MG/DL Urine Glucose (UA) (NEG) MG/DL Urine Ketones (NEG) MG/DL Urine Blood (NEG) Urine Nitrite (NEG) Ur Leukocyte Esterase (NEG) Urine Test (NEGATIVE) Urine Opiates Screen Not Detected (Not Detect) Urine Fentanyl Screen Not Detected (Not Detect) Ur Barbiturates Screen Not Detected (Not Detect) Ur Phencyclidine Scrn Not Detected (Not Detect) Ur Amphetamines Screen Not Detected (Not Detect) U Benzodiazepines Scrn Not Detected (Not Detect) Urine Cocaine Screen POSITIVE H (Not Detect) U Marijuana (THC) Screen POSITIVE H (Not Detect) Ethyl Alcohol 405 H* mg/dL COVID-19 ([facility]) (Negative) COVID-19 Clin Com Discharge Plan Discharge Clinical Impression: Alcohol intoxication Patient Disposition: Still a Patient Prescriptions: No Action clonidine HCl 0.1 mg Tablet 0.05 mg PO TID PRN (Reason: anxiety) 30 Days Qty: 90 0RF Protocol: Hold for SBP< HOLD for SBP < : 90 hydroxyzine HCl 25 mg Tablet 25 mg PO TID PRN (Reason: Anxiety) 30 Days Qty: 90 0RF lamotrigine 100 mg tablet 100 mg PO DAILY 30 Days Qty: 30 0RF Rx Instructions: start taking 100mg daily 01/16/22 duloxetine 60 mg Capsule,Delayed Release(Dr/Ec) 60 mg PO DAILY 30 Days Qty: 30 0RF trazodone 50 mg Tablet 50 mg PO BEDTIME PRN (Reason: Insomnia) 30 Days Qty: 30 0RF gabapentin 600 mg Tablet 600 mg PO TID 30 Days Qty: 90 0RF thiamine HCl (vitamin B1) 100 mg Tablet 100 mg PO DAILY 30 Days Qty: 30 0RF omeprazole 40 mg Capsule,Delayed Release(Dr/Ec) 40 mg PO DAILY 30 Days Qty: 30 0RF lamotrigine [Lamictal] 25 mg Tablet 75 mg PO DAILY 7 Days Qty: 21 0RF Rx Instructions: take 75mg for 1 week, then take 100mg daily folic acid 1 mg Tablet 1 mg PO DAILY 30 Days Qty: 30 0RF albuterol sulfate [ProAir HFA] 90 mcg/actuation Hfa Aerosol Inhaler 2 puff INHALATION Q4H PRN (Reason: Shortness Of Breath) 30 Days Qty: 6.7 0RF melatonin 10 mg Tablet 10 mg PO BEDTIME PRN (Reason: sleep) 30 Days Qty: 30 0RF
--- NOTE | 2022-02-27 13:20 | PC.NURSE ---
supplemental note to triage patient seems moderately intoxicated and endorses she has had recent SI no clear plan. desires no NRT. states she started drinking last night, endorses rcent thc use. states her sisters darlene killed self unclear when. patient stated off meds two weeks.
[2022-02-27 13:29] LABS: Appearance Urine HAZY; Color Urine STRAW; Glucose Urine UA NEG (NEG); Leukocyte Esterase Urine NEG (NEG); Nitrite Urine NEG (NEG); PH 5.5 (5.0-8.0); Specific Gravity - Urine <= 1.005 (1.005-1.025); Urine Blood NEG (NEG); Urine Ketones NEG (NEG); Urine Protein NEG (NEG-TRACE)
[2022-02-27 13:32] LABS: UPreg QC Valid YES; Urine Pregnancy NEGATIVE (NEGATIVE)
[2022-02-27 13:42] LABS: COVID-19 Test Negative (Negative)
[2022-02-27 13:48] LABS: Amphetamine Screen Urine Not Detected (Not Detect); Barbiturates, Urine Not Detected (Not Detect); Benzodiazepines Screen Urine Not Detected (Not Detect); Cannabinoid Screen Urine POSITIVE (Not Detect); Cocaine Screen Urine POSITIVE (Not Detect); Fentanyl, urine Not Detected (Not Detect); Opiate Screen Urine Not Detected (Not Detect); Phencyclidine Screen Urine Not Detected (Not Detect)
[2022-02-27 13:56] LABS: MANUAL DIFF FLAG NO
[2022-02-27 13:58] LABS: Basophils Percent Auto 0.2 % (0-2); Eosinophils Percent Auto 0.1 % (0-4); Hematocrit 35.8 % (37.0-47.0); Hemoglobin 12.2 g/dl (12.0-16.0); Imm Gran Abs Auto 0.09 X10*3/uL (0.00-0.03); Imm Gran Pct Auto 0.6 % (0.0-0.4); Lymphocytes Absolute Auto 2.2 X10*3/uL (1.2-4.9); Lymphocytes Percent Auto 13.5 % (20-40); Mean Corpuscular HGB Conc 34.1 g/dl (31.0-35.0); Mean Corpuscular Hemoglobin 31.2 pg (27.0-33.0); Mean Corpuscular Volume 91.6 fL (80.0-98.0); Mean Platelet Volume 9.4 fL (9.4-12.3); Monocytes Absolute Auto 0.9 X10*3/uL (0.1-1.2); Monocytes Percent Auto 5.6 % (2-11); Neutrophils Absolute Auto 12.9 x10*3/uL (2.0-8.3); Platelet Count 288 X10*3/uL (160-400); Red Blood Count 3.91 X10*6/uL (4.20-5.50); Red Cell Distribution Width 16.9 % (11.0-16.0); White Blood Count 16.1 X10*3/uL (4.8-10.8)
[2022-02-27 14:17] LABS: Alanine Aminotransferase 19 U/L (0-31); Albumin Level 4.6 g/dL (3.5-5.0); Alkaline Phosphatase 93 U/L (39-117); Anion Gap 18 (12-20); Aspartate Amino Transferase 30 U/L (5-31); Bilirubin Direct 0.2 mg/dL (0.0-0.5); Bilirubin Total 0.4 mg/dL (0.0-1.0); Blood Urea Nitrogen 10 mg/dL (9-16); Calcium 8.5 mg/dL (8.4-10.2); Carbon Dioxide 20 mmol/L (22-29); Chloride 111 mmol/L (96-108); Creatinine Clr Calc Pharmacy 80.5; Estimated Glomerular Filt Rate > 60; Ethanol 405 mg/dL; Glucose Random 104 mg/dL (60-115); Potassium 3.4 mmol/L (3.3-5.1); Sodium 146 mmol/L (135-145); Total Protein 7.5 g/dL (6.5-8.0)
[2022-02-27 16:00] VITALS: RESP 18
--- NOTE | 2022-02-27 16:34 | PHA.MEDREC ---
Pharmacy Consult ? Medication Reconciliation Pharmacy has completed the medication reconciliation.
[2022-02-27] MEDS: Melatonin 3 MG TABLET 9 MG PO (21:16)
[2022-02-27] MEDS: traZODone HCL 100 MG TABLET PO (21:16)
[2022-02-27] MEDS: LORazepam 1 MG TABLET 2 MG PO (21:16)
[2022-02-27] MEDS: Gabapentin 600 MG TABLET PO (21:17)
[2022-02-28 05:39] VITALS: BP 144/95; PULSE 110; RESP 16; TEMP 36.8; O2SAT 96
[2022-02-28] MEDS: LORazepam 1 MG TABLET 2 MG PO ×3 (06:22→21:14)
[2022-02-28] MEDS: Omeprazole 40 MG CAPSULE.DR PO (06:23)
--- NOTE | 2022-02-28 06:39 | PC.NURSE ---
Patient slept through the night, no distress observed/reported, asymptomatic of withdrawal, Ativan 2 mg po administered for comfort, BHN referral completed/confirmed/pending ETA, behavior non concerning, vss, medication compliant, will continue to monitor.
--- NOTE | 2022-02-28 07:08 | PC.NURSE ---
patient appears to remain at rest, client perioically awakening waiting for bhn assessment patient appears in no distress
[2022-02-28] MEDS: DULoxetine HCl 30 MG CAPSULE.DR PO (09:09)
[2022-02-28] MEDS: Thiamine HCL 100 MG TABLET PO (09:09)
[2022-02-28] MEDS: Folic Acid 1 MG TABLET PO (09:09)
[2022-02-28] MEDS: Gabapentin 600 MG TABLET PO ×2 (09:09→21:14)
[2022-02-28] MEDS: lamoTRIgine 100 MG TABLET PO (09:09)
[2022-02-28 09:27] VITALS: BP 156/104; PULSE 116; TEMP 37.7; O2SAT 96
[2022-02-28] MEDS: cloNIDine HCL 0.1 MG TABLET PO ×2 (09:29→17:07)
[2022-02-28 13:57] VITALS: BP 141/92; PULSE 96; TEMP 37.1; O2SAT 96
[2022-02-28 16:57] VITALS: BP 151/103; PULSE 102; RESP 18; TEMP 36.6; O2SAT 95
[2022-02-28 21:17] VITALS: BP 150/96; PULSE 86; RESP 18; TEMP 36.3; O2SAT 97
[2022-03-01 06:13] VITALS: BP 151/100; PULSE 82; RESP 16; TEMP 36.5; O2SAT 99
--- NOTE | 2022-03-01 07:02 | PC.NURSE ---
Patient slept through the night, no distress observed/reported, BHN assessed the patient, disposition is pending, CHOLO follow up today, behavior appropriate, medication compliant, VSS, will continue to monitor.
[2022-03-01] MEDS: Omeprazole 40 MG CAPSULE.DR PO (07:06)
[2022-03-01 11:02] VITALS: BP 149/110; PULSE 90; TEMP 34.9; O2SAT 97
[2022-03-01] MEDS: lamoTRIgine 100 MG TABLET PO (11:24)
[2022-03-01] MEDS: Gabapentin 600 MG TABLET PO ×3 (11:24→21:19)
[2022-03-01] MEDS: DULoxetine HCl 30 MG CAPSULE.DR PO (11:24)
[2022-03-01] MEDS: Folic Acid 1 MG TABLET PO (11:24)
[2022-03-01] MEDS: Thiamine HCL 100 MG TABLET PO (11:24)
[2022-03-01] MEDS: hydrOXYzine HCL 50 MG TABLET PO (11:25)
[2022-03-01] MEDS: cloNIDine HCL 0.1 MG TABLET PO ×2 (11:26→21:18)
--- NOTE | 2022-03-01 11:27 | PC.NURSE ---
pt c/o increased anxiety, tearful when giving medications, pt medicated with prn anxiety meds will continue to monitor
--- NOTE | 2022-03-01 11:36 | PC.NURSE ---
patient currently ambulating on unit, pt medicated per order, will continue to monitor
[2022-03-01] MEDS: LORazepam 1 MG TABLET 2 MG PO ×2 (14:25→18:53)
--- NOTE | 2022-03-01 14:28 | PC.NURSE ---
pt very tearful, requesting ativan, ciwa was re- performed, pt score was 12. pt medicated with ativan per order, will continue to monitor.
[2022-03-01 19:09] VITALS: BP 155/105; PULSE 95; RESP 16; TEMP 36.1; O2SAT 99
[2022-03-01 19:59] VITALS: BP 134/95
[2022-03-01] MEDS: traZODone HCL 100 MG TABLET PO (21:18)
[2022-03-01] MEDS: Melatonin 3 MG TABLET 9 MG PO (21:19)
--- NOTE | 2022-03-02 | ECG_ITS ---
Test Reason : MEDICAL CLEARANCE Blood Pressure : / mmHG Vent. Rate : 092 BPM Atrial Rate : 092 BPM P-R Int : 170 ms QRS Dur : 084 ms QT Int : 366 ms P-R-T Axes : 039 002 038 degrees QTc Int : 452 ms Normal sinus rhythm Septal infarct (cited on or before 05-JAN-2022) Abnormal ECG When compared with ECG of 05-JAN-2022 14:35, No significant change was found Referred By: Alan Brower Electronically Signed By:Nolan Chino
[2022-03-02] MEDS: LORazepam 1 MG TABLET 2 MG PO ×2 (00:43→17:50)
--- NOTE | 2022-03-02 05:32 | PC.NURSE ---
Patient slept through the night, no distress observed/reported, medication compliant, behavior appropriate and non concerning, disposition per [facility] is section 12 inpatient bed search, no update on bed search so far, VSS, asymptomatic of ETOH withdrawal, will continue to monitor.
[2022-03-02] MEDS: Omeprazole 40 MG CAPSULE.DR PO (06:11)
[2022-03-02 06:17] VITALS: BP 133/85; PULSE 94; RESP 16; TEMP 36.1; O2SAT 95
--- NOTE | 2022-03-02 08:02 | PC.NURSE ---
Pt sleeping at this time, resp reg and even. NAD at this time. In-patient bedsearch continues.
[2022-03-02] MEDS: Thiamine HCL 100 MG TABLET PO (08:36)
[2022-03-02] MEDS: Gabapentin 600 MG TABLET PO ×3 (08:36→17:33)
[2022-03-02] MEDS: lamoTRIgine 100 MG TABLET PO (08:36)
[2022-03-02] MEDS: Folic Acid 1 MG TABLET PO (08:36)
[2022-03-02] MEDS: DULoxetine HCl 30 MG CAPSULE.DR PO (08:36)
--- NOTE | 2022-03-02 08:42 | PC.NURSE ---
Pt provided morning medications, declining to take the naltrexone at this time. Reports feeling a little sedated this morning, states she does not feel as though she is experiencing any withdrawal symptoms.
[2022-03-02 11:51] LABS: COVID-19 Test Negative (Negative)
[2022-03-02 16:00] VITALS: BP 135/87; PULSE 95; TEMP 36.6; O2SAT 97
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
[2022-03-02] MEDS: cloNIDine HCL 0.1 MG TABLET PO (17:37)
[2022-03-02] MEDS: Fluticasone Propionate Nasal 16 GM SPRAY 1 SPRAY NOSTRIL-B (20:44)
[2022-03-02] MEDS: hydrOXYzine HCL 50 MG TABLET PO (20:44)
--- NOTE | 2022-03-03 00:58 | PC.ADMIT ---
PATIENT IS A 41 YEAR OLD BELGIAN SPEAKING FEMALE ADMITTED TO FROM THE [facility] A CV ADMISSION AT 1513 ON 03/02/22 AND PLACED ON 15 MINUTE SAFTEY CHECKS. PATIENT WAS MEDICALLY CLEARED, EVALUATED BY BHN AND DEEMED IN NEED OF IPLOC SECONDARY TO BEING HIGHLY INTOXICATED AND EXPRESSING SI. PATIENT'S BAL WAS 405 ON 02/27/22. THIS IS THE THIRD SIMILAR PRESENTATION SINCE DECEMBER 2021. PATIENT HAS HAD A LONG HISTORY OF DRINKING TO THE POINT OF INTOXICATION AND APPARENTLY OVERMEDICATED HERSELF ON GABAPENTIN SEVERAL DAYS AGO. PATIENT INDICATED THAT SHE HAS MULTIPLE LIFE STRESSORS AND NEEDS AN ALCOHOL TREATMENT PROGRAM TO FOCUS ON HER ALCOHOLISM AND THEN DEAL WITH BIPOLAR ISSUES. PATIENT TEARFUL BUT COOPERATIVE DURING THE ADMISSION PROCESS. NO ACTIVE SI. NO HI, AH OR VH. PATIENT SIGNED LEGALS AND RELEASES. SHE NEEDS TO SIGN SAFETY TOOL AND TREATMENT PLAN. CIWA SCORE WAS INITIALLY 18 AT 1600 BUT WAS A 3 AROUND 1999. SHE HAD BEEN GIVEN CLONIDINE AND ATIVAN WITH POSITIVE EFFECT.
[2022-03-03 06:00] VITALS: BP 142/92; PULSE 91; RESP 16; TEMP 36.3; O2SAT 97
[2022-03-03 08:45] LABS: Cholesterol 218 mg/dL; Estimated Average Glucose 94 mg/dL; HDL Cholesterol 96 mg/dL; Hemoglobin A1c % 4.9 %; LDL Cholesterol Calculated 104 mg/dl; Magnesium 1.9 mg/dL (1.6-2.6); Triglycerides 90 mg/dL
[2022-03-03 09:06] LABS: Free T4 (Free Thyroxine) 0.93 ng/dL (0.71-1.85); Thyroid Stimulating Hormone 0.96 uIU/mL (0.32-4.0)
[2022-03-03] MEDS: LORazepam 1 MG TABLET 2 MG PO ×2 (09:06→16:26)
[2022-03-03] MEDS: lamoTRIgine 100 MG TABLET PO (09:08)
[2022-03-03] MEDS: Folic Acid 1 MG TABLET PO (09:08)
[2022-03-03] MEDS: Thiamine HCL 100 MG TABLET PO (09:08)
[2022-03-03] MEDS: Naltrexone HCl 50 MG TABLET PO (09:08)
[2022-03-03] MEDS: Multivitamin TABLET 1 TAB PO (09:08)
[2022-03-03] MEDS: DULoxetine HCl 30 MG CAPSULE.DR PO (09:08)
[2022-03-03] MEDS: Fluticasone Propionate Nasal 16 GM SPRAY 1 SPRAY NOSTRIL-B ×2 (09:09→09:10)
[2022-03-03] MEDS: Gabapentin 600 MG TABLET PO ×3 (09:09→16:20)
[2022-03-03 11:44] LABS: Vitamin B12 533 pg/mL (200-900)
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
[2022-03-03] MEDS: clonazePAM 0.5 MG TABLET PO ×2 (15:07→21:41)
[2022-03-03] MEDS: hydrOXYzine HCL 50 MG TABLET PO (16:20)
[2022-03-03] MEDS: cloNIDine HCL 0.1 MG TABLET PO (21:41)
[2022-03-03] MEDS: traZODone HCL 100 MG TABLET PO (21:41)
[2022-03-04] MEDS: LORazepam 1 MG TABLET PO ×2 (04:41→10:03)
[2022-03-04] MEDS: hydrOXYzine HCL 50 MG TABLET PO ×2 (04:41→17:34)
[2022-03-04 05:00] VITALS: BP 135/88; PULSE 110; TEMP 36.2; O2SAT 97
[2022-03-04] MEDS: Omeprazole 40 MG CAPSULE.DR PO (09:50)
[2022-03-04] MEDS: DULoxetine HCl 30 MG CAPSULE.DR PO (09:51)
[2022-03-04] MEDS: Thiamine HCL 100 MG TABLET PO (09:51)
[2022-03-04] MEDS: Multivitamin TABLET 1 TAB PO (09:51)
[2022-03-04] MEDS: Gabapentin 600 MG TABLET PO ×3 (09:51→16:39)
[2022-03-04] MEDS: lamoTRIgine 100 MG TABLET PO (09:51)
[2022-03-04] MEDS: Naltrexone HCl 50 MG TABLET PO (09:51)
[2022-03-04] MEDS: Folic Acid 1 MG TABLET PO (09:51)
[2022-03-04] MEDS: Acetaminophen 325 MG TABLET 650 MG PO ×2 (10:03→16:57)
[2022-03-04] MEDS: Fluticasone Propionate Nasal 16 GM SPRAY 1 SPRAY NOSTRIL-B ×3 (10:05→20:52)
[2022-03-04] MEDS: Famotidine 20 MG TABLET PO ×2 (11:52→20:51)
--- NOTE | 2022-03-04 11:58 | HO.PSYCHPN ---
Subjective Subjective Date of Service: 03/04/22 Reason For Visit: Depression with SI Alcohol cocaine cannabis use di Interim History: Patient continues to have withdrawal symptoms feels in overall discomfort, nauseous when tries to eat, headache. She concurs that she drank as soon as she got home and that was sneaking alcohol when boyfriend and roommates were away at work. Patient said get depressed and when i drink, I start thinking and get more depressed and so I drink more and the negative thoughts increase... And i don't think it's worth being alive. Patient says this pattern is what leads to suicidal thinking. She feels if she could stay sober she would be able to actually use coping skills to handle her negative or self-deprecating thoughts but once she starts drinking, she feels completely incapable of self regulating. Patient says she would like to get on disulfiram; also would like to go to a program. She is not sure she can return back to the house since alcohol remains ever present. Mental Status Exam Mental Status Exam Narrative: Pt is alert and oriented; behavior is cooperative, tearful; dressed in casual attire with unkempt hair but adequate hygiene; mood is described as depressed and affect congruent tearful, downcast; minimal eye contact; Speech is normal rate, volume and prosody and not pressured; psychomotor retardation present; thought process is organized and goal directed; Thought content is feeling hopeless, abandoned; otherwise pertinent to relevant topics and without any delusional content, paranoid ideations or grandiosity; intermittent SI present; no HI; There is no evidence of perceptual disturbance; no AVH; Patients insight and judgment are impaired. Diagnostics Vital Signs (24Hr): Vital Signs - 24 hr 03/04/22 05:00 Temperature 97.2 F Pulse Rate 110 H Blood Pressure 135/88 Pulse Oximetry 97 Oxygen Delivery Method Room Air BMI result Body Mass Index 26.5 Labs Results: 02/27/22 13:46 02/27/22 13:46 Labs: Laboratory Results - last 48 hr 03/03/22 03/03/22 03/03/22 08:05 08:05 08:05 Estimat Average Glucose 94 Hemoglobin A1c % 4.9 Magnesium 1.9 Triglycerides 90 Cholesterol 218 LDL Cholesterol, Calc 104 HDL Cholesterol 96 Vitamin B12 533 Folate 17.0 TSH 0.96 Free T4 0.93 Medications Medications Current Medications Acetaminophen (Acetaminophen 325 Mg Tablet) 650 mg PO Q6H PRN PRN Reason: Headache/Pain Mild Scale (1-3) Last Admin: 03/04/22 10:03 Dose: 650 mg Al Hydroxide/Mg Hydroxide (Magnesium Hydrox/Alum Hydrox 30 Ml Oral.Susp) 30 ml PO Q6H PRN PRN Reason: Heartburn/Nausea Albuterol Sulfate (Albuterol Sulfate 90 Mcg 8 Gm Inhaler) 2 puff INHALE Q4H PRN PRN Reason: Shortness Of Breath Clonazepam (Clonazepam 0.5 Mg Tablet) 0.5 mg PO BEDTIME [facility] Last Admin: 03/03/22 21:41 Dose: 0.5 mg Clonidine HCl (Clonidine Hcl 0.1 Mg Tablet) 0.1 mg PO TID PRN; Protocol PRN Reason: Anxiety Last Admin: 03/03/22 21:41 Dose: 0.1 mg Duloxetine HCl (Duloxetine Hcl 30 Mg Capsule.Dr) 30 mg PO DAILY [facility] Last Admin: 03/04/22 09:51 Dose: 30 mg Famotidine (Famotidine 20 Mg Tablet) 20 mg PO BID [facility] Stop: 03/06/22 23:50 Fluticasone Propionate (Fluticasone Propionate Nasal 16 Gm [place]) 1 spray NOSTRIL-B BID [facility] Last Admin: 03/04/22 10:06 Dose: 1 spray Folic Acid (Folic Acid 1 Mg Tablet) 1 mg PO DAILY [facility] Last Admin: 03/04/22 09:51 Dose: 1 mg Gabapentin (Gabapentin 600 Mg Tablet) 600 mg PO TIDWM [facility] Last Admin: 03/04/22 11:52 Dose: 600 mg Gabapentin (Gabapentin 100 Mg Capsule) 200 mg PO TID [facility] Stop: 03/06/22 23:50 Hydroxyzine HCl (Hydroxyzine Hcl 50 Mg Tablet) 50 mg PO TID PRN PRN Reason: Anxiety Last Admin: 03/04/22 04:41 Dose: 50 mg Lamotrigine (Lamotrigine 100 Mg Tablet) 100 mg PO DAILY [facility] Last Admin: 03/04/22 09:51 Dose: 100 mg Lorazepam (Lorazepam 1 Mg Tablet) 2 mg PO Q2H PRN PRN Reason: alcohol withdrawal, CIWA =/>10 Last Admin: 03/03/22 16:26 Dose: 2 mg Lorazepam (Lorazepam 1 Mg Tablet) 1 mg PO Q2H PRN PRN Reason: CIWA 6-9 Last Admin: 03/04/22 10:03 Dose: 1 mg Magnesium Hydroxide (Milk Of Magnesia 30 Ml Oral.Susp) 30 ml PO DAILY PRN PRN Reason: Constipation Melatonin (Melatonin 3 Mg Tablet) 9 mg PO BEDTIME PRN PRN Reason: insomnia Last Admin: 03/01/22 21:19 Dose: 9 mg Multivitamins/Vitamin C (Multivitamin Tablet) 1 tab PO DAILY [facility] Last Admin: 03/04/22 09:51 Dose: 1 tab Omeprazole (Omeprazole 40 Mg Capsule.Dr) 40 mg PO DAILY@0630 [facility] Last Admin: 03/04/22 09:50 Dose: 40 mg Thiamine HCl (Thiamine Hcl 100 Mg Tablet) 100 mg PO DAILY [facility] Last Admin: 03/04/22 09:51 Dose: 100 mg Thiamine HCl (Thiamine Hcl 200 Mg/2 Ml Vial) 100 mg IM DAILY [facility] Stop: 03/06/22 23:50 Trazodone HCl (Trazodone Hcl 100 Mg Tablet) 100 mg PO BEDTIME PRN PRN Reason: insomnia Last Admin: 03/03/22 21:41 Dose: 100 mg Allergies Allergies Allergy/AdvReac Type Severity Reaction Status Date / Time No Known Allergies Allergy Verified 01/02/22 20:52 Assessment & Plan Assessment & Plan (1) MDD (major depressive disorder), recurrent episode, moderate: Status: Acute Code(s): F33.1 - Major depressive disorder, recurrent, moderate (2) Chronic post-traumatic stress disorder (PTSD): Status: Acute Code(s): F43.12 - Post-traumatic stress disorder, chronic (3) Alcohol dependence: Status: Acute Code(s): F10.20 - Alcohol dependence, uncomplicated (4) Cocaine abuse: Status: Acute Code(s): F14.10 - Cocaine abuse, uncomplicated (5) Fibromyalgia: Status: Acute Code(s): M79.7 - Fibromyalgia Plan [place] is a 41-year-old female who carries a dx of PTSD, MDD, fibromyalgia, and severe alcohol use disorder. She presented to [facility] ED on 02/27/22 due to worsening depression and SI in context of alcohol abuse, BAL 405 on arrival. Pt?s fiance reports she had a suicide attempt by overdose a few nights ago, has been drinking heavily. Pt recently discharged from [facility] M5 01/06-01/09/2022 due to SI, depression, and alcohol abuse in context of multiple psychosocial stressors. Pt has hx of decades long alcohol abuse and trauma.? 03/03 patient remains an active withdrawal, depressed with SI 03/04 patient continues to be in withdrawal, depressed with intermittent passive SI; wants to get on and abuse and wants a program. Will augment medications for withdrawal Plan: Q15 min safety checks, CV Will start Librium taper Continue CIWA to Q2 hours p.r.n; also Adding Ativan 1 mg q.2 hours p.r.n. for CIWA 6-9 Likely increase Cymbalta back to 60 mg (outpatient program lowered it out of concern for bipolar disorder; however this was effectively ruled out last admission and patient feels she did best on this) Will temporarily increase gabapentin for withdrawal symptoms; otherwise Will consider whether to continue gabapentin given patient's overdose and chronic alcoholism (used for fibromyalgia, which untreated triggers relapse) Will likely start disulfiram once patient little more stable DC naltrexone Added IM thiamine for 3 days Added famotidine for 3 days to augment omeprazole otherwise: Monitor response to medications. Monitor for safety in the milieu. Discharge on stabilization. Patient seen. Chart reviewed. Discussed with team. Obtain collateral contact info?as needed I spent minutes with the patient and/or on the patient floor today, greater than?50% of which was spent counseling/coordinating care. Patient educated on: diagnosis, medication risk/benefits, substance abuse and therapeutic strategies Informed Consent: understands Reason for contiued inpatient stay Substantial Risk for: harm to self and rapid decompensation
[2022-03-04] MEDS: chlordiazePOXIDE HCl 25 MG CAPSULE PO ×2 (12:28→20:51)
[2022-03-04] MEDS: Gabapentin 100 MG CAPSULE 200 MG PO ×3 (12:29→20:51)
[2022-03-04] MEDS: Thiamine HCL 200 MG/2 ML VIAL 100 MG IM (12:30)
[2022-03-04 19:00] VITALS: BP 116/66; PULSE 88; TEMP 37.3; O2SAT 98
[2022-03-04] MEDS: Melatonin 3 MG TABLET 9 MG PO (20:59)
[2022-03-04] MEDS: traZODone HCL 100 MG TABLET PO (20:59)
[2022-03-04] MEDS: cloNIDine HCL 0.1 MG TABLET PO (21:44)
[2022-03-05 08:30] VITALS: BP 120/88; PULSE 108; TEMP 36.5
[2022-03-05] MEDS: Gabapentin 100 MG CAPSULE 200 MG PO ×3 (08:36→20:10)
[2022-03-05] MEDS: Thiamine HCL 200 MG/2 ML VIAL 100 MG IM (08:36)
[2022-03-05] MEDS: Multivitamin TABLET 1 TAB PO (08:37)
[2022-03-05] MEDS: Folic Acid 1 MG TABLET PO (08:37)
[2022-03-05] MEDS: chlordiazePOXIDE HCl 25 MG CAPSULE PO ×2 (08:37→21:35)
[2022-03-05] MEDS: lamoTRIgine 100 MG TABLET PO (08:37)
[2022-03-05] MEDS: Famotidine 20 MG TABLET PO ×2 (08:37→21:35)
[2022-03-05] MEDS: Omeprazole 40 MG CAPSULE.DR PO (08:37)
[2022-03-05] MEDS: Gabapentin 600 MG TABLET PO ×3 (08:37→18:13)
[2022-03-05] MEDS: Thiamine HCL 100 MG TABLET PO (08:37)
[2022-03-05] MEDS: DULoxetine HCl 30 MG CAPSULE.DR PO (08:38)
[2022-03-05] MEDS: Fluticasone Propionate Nasal 16 GM SPRAY 1 SPRAY NOSTRIL-B ×2 (08:38→21:36)
[2022-03-05] MEDS: Acetaminophen 325 MG TABLET 650 MG PO (09:37)
--- NOTE | 2022-03-05 10:33 | P.PNPSI_ITS ---
Subjective Subjective Date of Service: 03/05/22 Reason For Visit: Depression with SI Alcohol cocaine cannabis use di Interim History: Depression is better and SI resolved. Patient is also feeling a little better and has been able to eat; Patient is also been able to sleep and her stomach is feeling a little better. She agrees to have duloxetine increased since she feels she did best on higher dose. Patient was very eager to discuss treatment options and she wants a substance abuse treatment program following discharge; patient is reviewing the options with social work. Immigration Patrol Inspector discussed disulfiram and thoroughly reviewed risks/side effects verse benefits. Patient is anxious a bout the risk profile and needs more time to think about it. Mental Status Exam Mental Status Exam Narrative: Pt is alert and oriented; behavior is cooperative, calm; dressed in hospital attire with unkempt hair but adequate hygiene; mood is described as little better and affect congruent, brighter; appropriate eye contact; Speech is normal rate, volume and prosody and not pressured; no psychomotor retardation present; thought process is organized and goal directed; Thought content is feeling more hopeful; on tx; otherwise pertinent to relevant topics and without any delusional content, paranoid ideations or grandiosity; no SI; no HI; There is no evidence of perceptual disturbance; no AVH; Patients insight and judgment are fair. Diagnostics Vital Signs (24Hr): Vital Signs - 24 hr 03/04/22 19:00 03/05/22 08:30 Temperature 99.1 F 97.7 F Pulse Rate 88 108 H Blood Pressure 116/66 120/88 Pulse Oximetry 98 Oxygen Delivery Method Room Air BMI result Body Mass Index 26.5 Labs Results: 02/27/22 13:46 02/27/22 13:46 Labs: Laboratory Results - last 48 hr 03/03/22 08:05 Vitamin B12 533 Folate 17.0 Medications Medications Current Medications Acetaminophen (Acetaminophen 325 Mg Tablet) 650 mg PO Q6H PRN PRN Reason: Headache/Pain Mild Scale (1-3) Last Admin: 03/05/22 09:37 Dose: 650 mg Al Hydroxide/Mg Hydroxide (Magnesium Hydrox/Alum Hydrox 30 Ml Oral.Susp) 30 ml PO Q6H PRN PRN Reason: Heartburn/Nausea Albuterol Sulfate (Albuterol Sulfate 90 Mcg 8 Gm Inhaler) 2 puff INHALE Q4H PRN PRN Reason: Shortness Of Breath Chlordiazepoxide HCl (Chlordiazepoxide Hcl 25 Mg Capsule) 25 mg PO ONCE ONE Stop: 03/06/22 09:01 Chlordiazepoxide HCl (Chlordiazepoxide Hcl 25 Mg Capsule) 25 mg PO BID [facility] Stop: 03/05/22 23:50 Last Admin: 03/05/22 08:37 Dose: 25 mg Chlordiazepoxide HCl (Chlordiazepoxide Hcl 5 Mg Capsule) 10 mg PO ONCE ONE Stop: 03/07/22 09:01 Clonidine HCl (Clonidine Hcl 0.1 Mg Tablet) 0.1 mg PO TID PRN; Protocol PRN Reason: Anxiety Last Admin: 03/04/22 21:44 Dose: 0.1 mg Duloxetine HCl (Duloxetine Hcl 30 Mg Capsule.Dr) 30 mg PO DAILY [facility] Last Admin: 03/05/22 08:38 Dose: 30 mg Famotidine (Famotidine 20 Mg Tablet) 20 mg PO BID [facility] Stop: 03/06/22 23:50 Last Admin: 03/05/22 08:37 Dose: 20 mg Fluticasone Propionate (Fluticasone Propionate Nasal 16 Gm [place]) 1 spray NOSTRIL-B BID [facility] Last Admin: 03/05/22 08:38 Dose: 1 spray Folic Acid (Folic Acid 1 Mg Tablet) 1 mg PO DAILY [facility] Last Admin: 03/05/22 08:37 Dose: 1 mg Gabapentin (Gabapentin 600 Mg Tablet) 600 mg PO TIDWM [facility] Last Admin: 03/05/22 08:37 Dose: 600 mg Gabapentin (Gabapentin 100 Mg Capsule) 200 mg PO TID [facility] Stop: 03/06/22 23:50 Last Admin: 03/05/22 08:36 Dose: 200 mg Hydroxyzine HCl (Hydroxyzine Hcl 50 Mg Tablet) 50 mg PO TID PRN PRN Reason: Anxiety Last Admin: 03/04/22 17:34 Dose: 50 mg Lamotrigine (Lamotrigine 100 Mg Tablet) 100 mg PO DAILY [facility] Last Admin: 03/05/22 08:37 Dose: 100 mg Lorazepam (Lorazepam 1 Mg Tablet) 2 mg PO Q2H PRN PRN Reason: alcohol withdrawal, CIWA =/>10 Last Admin: 03/03/22 16:26 Dose: 2 mg Lorazepam (Lorazepam 1 Mg Tablet) 1 mg PO Q2H PRN PRN Reason: CIWA 6-9 Last Admin: 03/04/22 10:03 Dose: 1 mg Magnesium Hydroxide (Milk Of Magnesia 30 Ml Oral.Susp) 30 ml PO DAILY PRN PRN Reason: Constipation Melatonin (Melatonin 3 Mg Tablet) 9 mg PO BEDTIME PRN PRN Reason: insomnia Last Admin: 03/04/22 20:59 Dose: 9 mg Multivitamins/Vitamin C (Multivitamin Tablet) 1 tab PO DAILY [facility] Last Admin: 03/05/22 08:37 Dose: 1 tab Omeprazole (Omeprazole 40 Mg Capsule.Dr) 40 mg PO DAILY@0630 [facility] Last Admin: 03/05/22 08:37 Dose: 40 mg Thiamine HCl (Thiamine Hcl 100 Mg Tablet) 100 mg PO DAILY [facility] Last Admin: 03/05/22 08:37 Dose: 100 mg Thiamine HCl (Thiamine Hcl 200 Mg/2 Ml Vial) 100 mg IM DAILY [facility] Stop: 03/06/22 23:50 Last Admin: 03/05/22 08:36 Dose: 100 mg Trazodone HCl (Trazodone Hcl 100 Mg Tablet) 100 mg PO BEDTIME PRN PRN Reason: insomnia Last Admin: 03/04/22 20:59 Dose: 100 mg Allergies Allergies Allergy/AdvReac Type Severity Reaction Status Date / Time No Known Allergies Allergy Verified 01/02/22 20:52 Assessment & Plan Assessment & Plan (1) MDD (major depressive disorder), recurrent episode, moderate: Status: Acute Code(s): F33.1 - Major depressive disorder, recurrent, moderate (2) Chronic post-traumatic stress disorder (PTSD): Status: Acute Code(s): F43.12 - Post-traumatic stress disorder, chronic (3) Alcohol dependence: Status: Acute Code(s): F10.20 - Alcohol dependence, uncomplicated (4) Cocaine abuse: Status: Acute Code(s): F14.10 - Cocaine abuse, uncomplicated (5) Fibromyalgia: Status: Acute Code(s): M79.7 - Fibromyalgia Plan [place] is a 41-year-old female who carries a dx of PTSD, MDD, fibromyalgia, and severe alcohol use disorder. She presented to [facility] ED on 02/27/22 due to worsening depression and SI in context of alcohol abuse, BAL 405 on arrival. Pt?s fiance reports she had a suicide attempt by overdose a few nights ago, has been drinking heavily. Pt recently discharged from [facility] M5 01/06-01/09/2022 due to SI, depression, and alcohol abuse in context of multiple psychosocial stressors. Pt has hx of decades long alcohol abuse and trauma.? 03/03 patient remains an active withdrawal, depressed with SI 03/04 patient continues to be in withdrawal, depressed with intermittent passive SI; wants to get on and abuse and wants a program. Will augment medications for withdrawal 03/05 patient doing a little better, says depression is lessened and no SI; is feeling physically better to and able to eat and sleep, withdrawal symptoms waning. Patient is considering disulfiram Plan: Q15 min safety checks, CV CIWA Q 4 while awake; likely nearing the end of withdrawal; Librium taper Increased Cymbalta back to 60 mg (outpatient program lowered it out of concern for bipolar disorder; however this was effectively ruled out last admission and patient feels she did best on this) Will temporarily increase gabapentin for withdrawal symptoms; otherwise Will consider whether to continue gabapentin given patient's overdose and chronic alcoholism (used for fibromyalgia, which untreated triggers relapse) Patient considering disulfiram once patient little more stable DC naltrexone Thiamine/folate/multivitamin Added famotidine for 3 days to augment omeprazole otherwise: Monitor response to medications. Monitor for safety in the milieu. Discharge on stabilization. Patient seen. Chart reviewed. Discussed with team. Obtain collateral contact info?as needed I spent minutes with the patient and/or on the patient floor today, greater than?50% of which was spent counseling/coordinating care. Reason for contiued inpatient stay Substantial Risk for: rapid decompensation
[2022-03-05] MEDS: Pseudoephedrine HCL 30 MG TABLET PO ×2 (13:13→21:38)
[2022-03-05 18:00] VITALS: BP 130/60; PULSE 78; TEMP 36.2; O2SAT 98
[2022-03-05] MEDS: cloNIDine HCL 0.1 MG TABLET PO (20:09)
[2022-03-05] MEDS: traZODone HCL 100 MG TABLET PO (21:38)
[2022-03-05] MEDS: hydrOXYzine HCL 50 MG TABLET PO (21:38)
[2022-03-06] MEDS: Pseudoephedrine HCL 30 MG TABLET PO ×3 (04:57→22:28)
[2022-03-06 08:30] VITALS: BP 121/83; PULSE 116; TEMP 37
[2022-03-06] MEDS: Gabapentin 600 MG TABLET PO ×2 (08:54→11:52)
[2022-03-06] MEDS: Famotidine 20 MG TABLET PO ×2 (08:54→20:36)
[2022-03-06] MEDS: Omeprazole 40 MG CAPSULE.DR PO (08:54)
[2022-03-06] MEDS: chlordiazePOXIDE HCl 25 MG CAPSULE PO (08:55)
[2022-03-06] MEDS: lamoTRIgine 100 MG TABLET PO (08:55)
[2022-03-06] MEDS: Gabapentin 100 MG CAPSULE 200 MG PO ×2 (08:55→15:43)
[2022-03-06] MEDS: DULoxetine HCl 60 MG CAPSULE.DR PO (08:55)
[2022-03-06] MEDS: Folic Acid 1 MG TABLET PO (08:55)
[2022-03-06] MEDS: Thiamine HCL 100 MG TABLET PO (08:55)
[2022-03-06] MEDS: Fluticasone Propionate Nasal 16 GM SPRAY 1 SPRAY NOSTRIL-B (08:55)
[2022-03-06] MEDS: Multivitamin TABLET 1 TAB PO (08:55)
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
[2022-03-06] MEDS: Gabapentin 400 MG CAPSULE 800 MG PO (18:30)
[2022-03-06] MEDS: cloNIDine HCL 0.1 MG TABLET PO (19:59)
[2022-03-06] MEDS: Magnesium Hydrox/Alum Hydrox 30 ML ORAL.SUSP PO (20:33)
[2022-03-06] MEDS: polyethylene glycoL 3350 17 GM POWD.PACK PO (20:36)
[2022-03-06 21:59] VITALS: BP 131/95; PULSE 104; TEMP 36.3
[2022-03-06] MEDS: Nicotine Polacrilex Lozenge 4 MG LOZENGE BUCCAL (22:28)
[2022-03-06] MEDS: hydrOXYzine HCL 50 MG TABLET PO (22:28)
--- NOTE | 2022-03-07 02:55 | P.PNPSI_ITS ---
Subjective Subjective Date of Service: 03/06/22 Reason For Visit: Depression with SI Alcohol cocaine cannabis use di Subjective Notes: Pascual Warning Interim History: Patient seen and discussed with team. Patient evaluated today and upon interview she requests that her gabapentin be consolidated to 800 mg TID. Also requests to start antabuse. Feels a little nervous about getting sick but says alcohol abuse medication will not help because if I know I can drink on it, i?ll drink. Denies having questions or concerns, Im better now. Going to all the groups. Nervous about transitioning to a TSS. In the milieu, patient is safe and appropriate in behavior. Denies SI/SIB/HI upon inquiry. Denies irritability or assaultive ideation. Says he feels safe. Mental Status Exam Mental Status Exam Narrative: Pt is alert and oriented; behavior is cooperative, calm; dressed in casual attire with adequate hygiene; mood is described as better and affect congruent, brighter; appropriate eye contact; Speech is normal rate, volume and prosody and not pressured; no psychomotor retardation present; thought process is organized and goal directed; Thought content is feeling more hopeful; on tx; otherwise pertinent to relevant topics and without any delusional content, paranoid ideations or grandiosity; no SI; no HI;? There is no evidence of perceptual disturbance; no AVH;? Patients insight and judgment are fair.? Diagnostics Vital Signs (24Hr): Vital Signs - 24 hr 03/06/22 08:30 03/06/22 21:59 Temperature 98.6 F 97.3 F Pulse Rate 116 H 104 H Blood Pressure 121/83 131/95 H BMI result Body Mass Index 26.5 Labs Results: 02/27/22 13:46 02/27/22 13:46 Medications Medications Current Medications Acetaminophen (Acetaminophen 325 Mg Tablet) 650 mg PO Q6H PRN PRN Reason: Headache/Pain Mild Scale (1-3) Last Admin: 03/05/22 09:37 Dose: 650 mg Al Hydroxide/Mg Hydroxide (Magnesium Hydrox/Alum Hydrox 30 Ml Oral.Susp) 30 ml PO Q6H PRN PRN Reason: Heartburn/Nausea Last Admin: 03/06/22 20:33 Dose: 30 ml Albuterol Sulfate (Albuterol Sulfate 90 Mcg 8 Gm Inhaler) 2 puff INHALE Q4H PRN PRN Reason: Shortness Of Breath Chlordiazepoxide HCl (Chlordiazepoxide Hcl 5 Mg Capsule) 10 mg PO ONCE ONE Stop: 03/07/22 09:01 Clonidine HCl (Clonidine Hcl 0.1 Mg Tablet) 0.1 mg PO TID PRN; Protocol PRN Reason: Anxiety Last Admin: 03/06/22 19:59 Dose: 0.1 mg Disulfiram (Disulfiram 250 Mg Tablet) 500 mg PO DAILY [facility] Duloxetine HCl (Duloxetine Hcl 60 Mg Capsule.Dr) 60 mg PO DAILY [facility] Last Admin: 03/06/22 08:55 Dose: 60 mg Fluticasone Propionate (Fluticasone Propionate Nasal 16 Gm [place]) 1 spray NOSTRIL-B BID [facility] Last Admin: 03/06/22 20:43 Dose: Not Given Folic Acid (Folic Acid 1 Mg Tablet) 1 mg PO DAILY [facility] Last Admin: 03/06/22 08:55 Dose: 1 mg Gabapentin (Gabapentin 400 Mg Capsule) 800 mg PO TID@0800,1200,1700 [facility] Last Admin: 03/06/22 18:30 Dose: 800 mg Hydroxyzine HCl (Hydroxyzine Hcl 50 Mg Tablet) 50 mg PO TID PRN PRN Reason: Anxiety Last Admin: 03/06/22 22:28 Dose: 50 mg Lamotrigine (Lamotrigine 100 Mg Tablet) 100 mg PO DAILY [facility] Last Admin: 03/06/22 08:55 Dose: 100 mg Lorazepam (Lorazepam 1 Mg Tablet) 2 mg PO Q2H PRN PRN Reason: alcohol withdrawal, CIWA =/>10 Last Admin: 03/03/22 16:26 Dose: 2 mg Lorazepam (Lorazepam 1 Mg Tablet) 1 mg PO Q2H PRN PRN Reason: CIWA 6-9 Last Admin: 03/04/22 10:03 Dose: 1 mg Magnesium Hydroxide (Milk Of Magnesia 30 Ml Oral.Susp) 30 ml PO DAILY PRN PRN Reason: Constipation Melatonin (Melatonin 3 Mg Tablet) 9 mg PO BEDTIME PRN PRN Reason: insomnia Last Admin: 03/04/22 20:59 Dose: 9 mg Multi-Ingred Medicated Throat [place] (Throat [place], Medicated 20 Ml Bottle) 1 spray MUCOUS MEM Q2H PRN PRN Reason: Dry Mouth Last Admin: 03/06/22 04:16 Dose: 1 spray Multivitamins/Vitamin C (Multivitamin Tablet) 1 tab PO DAILY [facility] Last Admin: 03/06/22 08:55 Dose: 1 tab Nicotine (Nicotine 21 Mg Patch.Td24) 21 mg TRANSDERMA DAILY PRN PRN Reason: smoking cessation Nicotine Polacrilex (Nicotine Polacrilex Lozenge 4 Mg Lozenge) 4 mg BUCCAL Q2H PRN PRN Reason: Nicotine Cravings Last Admin: 03/06/22 22:28 Dose: 4 mg Omeprazole (Omeprazole 40 Mg Capsule.Dr) 40 mg PO DAILY@0630 [facility] Last Admin: 03/06/22 08:54 Dose: 40 mg Polyethylene Glycol (Polyethylene Glycol 3350 17 Gm Powd.Pack) 17 gm PO BID [facility] Last Admin: 03/06/22 20:36 Dose: 17 gm Pseudoephedrine HCl (Pseudoephedrine Hcl 30 Mg Tablet) 30 mg PO Q4H PRN PRN Reason: nasal decongestant Last Admin: 03/06/22 22:28 Dose: 30 mg Thiamine HCl (Thiamine Hcl 100 Mg Tablet) 100 mg PO DAILY [facility] Last Admin: 03/06/22 08:55 Dose: 100 mg Trazodone HCl (Trazodone Hcl 100 Mg Tablet) 100 mg PO BEDTIME PRN PRN Reason: insomnia Last Admin: 03/05/22 21:38 Dose: 100 mg Allergies Allergies Allergy/AdvReac Type Severity Reaction Status Date / Time No Known Allergies Allergy Verified 01/02/22 20:52 Assessment & Plan Assessment & Plan (1) MDD (major depressive disorder), recurrent episode, moderate: Status: Acute Code(s): F33.1 - Major depressive disorder, recurrent, moderate (2) Chronic post-traumatic stress disorder (PTSD): Status: Acute Code(s): F43.12 - Post-traumatic stress disorder, chronic (3) Alcohol dependence: Status: Acute Code(s): F10.20 - Alcohol dependence, uncomplicated (4) Cocaine abuse: Status: Acute Code(s): F14.10 - Cocaine abuse, uncomplicated (5) Fibromyalgia: Status: Acute Code(s): M79.7 - Fibromyalgia Plan [place] is a 41-year-old female who carries a dx of PTSD, MDD, fibromyalgia, and severe alcohol use disorder. She presented to [facility] ED on 02/27/22 due to worsening depression and SI in context of alcohol abuse, BAL 405 on arrival. Pt?s fiance reports she had a suicide attempt by overdose a few nights ago, has been drinking heavily. Pt recently discharged from [facility] M5 01/06-01/09/2022 due to SI, depression, and alcohol abuse in context of multiple psychosocial stressors. Pt has hx of decades long alcohol abuse and trauma.? 03/03 patient remains an active withdrawal, depressed with SI 03/04 patient continues to be in withdrawal, depressed with intermittent passive SI; wants to get on and abuse and wants a program.? Will augment medications for withdrawal 03/05 patient doing a little better, says depression is lessened and no SI; is feeling physically better to and able to eat and sleep, withdrawal symptoms waning.? Patient is considering disulfiram Plan: Q15 min safety checks, CV CIWA Q 4 while awake; likely nearing the end of withdrawal; Librium taper Increased Cymbalta back to 60 mg (outpatient program lowered it out of concern for bipolar disorder; however this was effectively ruled out last admission and patient feels she did best on this) Will temporarily increase gabapentin for withdrawal symptoms; otherwise Will consider whether to continue gabapentin given patient's overdose and chronic alcoholism (used for fibromyalgia, which untreated triggers relapse) Patient considering disulfiram once patient little more stable DC naltrexone Thiamine/folate/multivitamin Added famotidine for 3 days to augment omeprazole Start antabuse 500 mg daily for AUD, will obtain updated LFTs otherwise: Monitor response to medications. Monitor for safety in the milieu. Discharge on stabilization. Patient seen. Chart reviewed. Discussed with team. Obtain collateral contact info?as needed I spent minutes with the patient and/or on the patient floor today, greater than?50% of which was spent counseling/coordinating care. Patient educated on: medication risk/benefits, substance abuse and therapeutic strategies Reason for contiued inpatient stay Substantial Risk for: med/psych decompensation
[2022-03-07] MEDS: Omeprazole 40 MG CAPSULE.DR PO (06:24)
[2022-03-07 08:15] VITALS: BP 137/79; PULSE 97; RESP 20; TEMP 36.1; O2SAT 98
[2022-03-07] MEDS: DULoxetine HCl 60 MG CAPSULE.DR PO (08:16)
[2022-03-07] MEDS: Folic Acid 1 MG TABLET PO (08:16)
[2022-03-07] MEDS: Disulfiram 250 MG TABLET 500 MG PO (08:17)
[2022-03-07] MEDS: Multivitamin TABLET 1 TAB PO (08:17)
[2022-03-07] MEDS: polyethylene glycoL 3350 17 GM POWD.PACK PO ×2 (08:17→21:43)
[2022-03-07] MEDS: lamoTRIgine 100 MG TABLET PO (08:17)
[2022-03-07] MEDS: Thiamine HCL 100 MG TABLET PO (08:17)
[2022-03-07] MEDS: chlordiazePOXIDE HCl 5 MG CAPSULE 10 MG PO (08:17)
[2022-03-07] MEDS: Gabapentin 400 MG CAPSULE 800 MG PO ×3 (08:18→17:34)
[2022-03-07] MEDS: Pseudoephedrine HCL 30 MG TABLET PO ×2 (08:58→21:42)
--- NOTE | 2022-03-07 09:04 | P.PNPSI_ITS ---
Subjective Subjective Date of Service: 03/07/22 Reason For Visit: Depression with SI Alcohol cocaine cannabis use di Subjective Notes: Conditional Voluntary Healthcare Proxy: No Guardianship: No Medical Problems Affecting Mental Status: No Interim History: Patient was seen and discussed in rounds today. Records and plans were reviewed. She is generally doing better. She is doing well with the Ativan taper. She denies any side effects or difficulties at this time. Eating and sleeping adequately. No SI. No changes were made today Review of Systems Review of Systems Yes all other systems are reviewed and are negative Mental Status Exam Mental Status Exam Narrative: In today's visit she is alert, oriented and pleasant. Normal speech. Moderate eye contact. Appropriate affect. No signs of psychosis. No SI/HI. Cognitively intact. Judgment and Diagnostics Vital Signs (24Hr): Vital Signs - 24 hr 03/06/22 21:59 Temperature 97.3 F Pulse Rate 104 H Blood Pressure 131/95 H BMI result Body Mass Index 26.5 Labs Results: 02/27/22 13:46 02/27/22 13:46 Medications Medications Current Medications Acetaminophen (Acetaminophen 325 Mg Tablet) 650 mg PO Q6H PRN PRN Reason: Headache/Pain Mild Scale (1-3) Last Admin: 03/05/22 09:37 Dose: 650 mg Al Hydroxide/Mg Hydroxide (Magnesium Hydrox/Alum Hydrox 30 Ml Oral.Susp) 30 ml PO Q6H PRN PRN Reason: Heartburn/Nausea Last Admin: 03/06/22 20:33 Dose: 30 ml Albuterol Sulfate (Albuterol Sulfate 90 Mcg 8 Gm Inhaler) 2 puff INHALE Q4H PRN PRN Reason: Shortness Of Breath Clonidine HCl (Clonidine Hcl 0.1 Mg Tablet) 0.1 mg PO TID PRN; Protocol PRN Reason: Anxiety Last Admin: 03/06/22 19:59 Dose: 0.1 mg Disulfiram (Disulfiram 250 Mg Tablet) 500 mg PO DAILY [facility] Last Admin: 03/07/22 08:17 Dose: 500 mg Duloxetine HCl (Duloxetine Hcl 60 Mg Capsule.Dr) 60 mg PO DAILY [facility] Last Admin: 03/07/22 08:16 Dose: 60 mg Fluticasone Propionate (Fluticasone Propionate Nasal 16 Gm [place]) 1 spray NOSTRIL-B BID [facility] Last Admin: 03/06/22 20:43 Dose: Not Given Folic Acid (Folic Acid 1 Mg Tablet) 1 mg PO DAILY [facility] Last Admin: 03/07/22 08:16 Dose: 1 mg Gabapentin (Gabapentin 400 Mg Capsule) 800 mg PO TID@0800,1200,1700 [facility] Last Admin: 03/07/22 08:18 Dose: 800 mg Hydroxyzine HCl (Hydroxyzine Hcl 50 Mg Tablet) 50 mg PO TID PRN PRN Reason: Anxiety Last Admin: 03/06/22 22:28 Dose: 50 mg Lamotrigine (Lamotrigine 100 Mg Tablet) 100 mg PO DAILY [facility] Last Admin: 03/07/22 08:17 Dose: 100 mg Lorazepam (Lorazepam 1 Mg Tablet) 2 mg PO Q2H PRN PRN Reason: alcohol withdrawal, CIWA =/>10 Last Admin: 03/03/22 16:26 Dose: 2 mg Lorazepam (Lorazepam 1 Mg Tablet) 1 mg PO Q2H PRN PRN Reason: CIWA 6-9 Last Admin: 03/04/22 10:03 Dose: 1 mg Magnesium Hydroxide (Milk Of Magnesia 30 Ml Oral.Susp) 30 ml PO DAILY PRN PRN Reason: Constipation Melatonin (Melatonin 3 Mg Tablet) 9 mg PO BEDTIME PRN PRN Reason: insomnia Last Admin: 03/04/22 20:59 Dose: 9 mg Multi-Ingred Medicated Throat [place] (Throat [place], Medicated 20 Ml Bottle) 1 spray MUCOUS MEM Q2H PRN PRN Reason: Dry Mouth Last Admin: 03/06/22 04:16 Dose: 1 spray Multivitamins/Vitamin C (Multivitamin Tablet) 1 tab PO DAILY [facility] Last Admin: 03/07/22 08:17 Dose: 1 tab Nicotine (Nicotine 21 Mg Patch.Td24) 21 mg TRANSDERMA DAILY PRN PRN Reason: smoking cessation Nicotine Polacrilex (Nicotine Polacrilex Lozenge 4 Mg Lozenge) 4 mg BUCCAL Q2H PRN PRN Reason: Nicotine Cravings Last Admin: 03/06/22 22:28 Dose: 4 mg Omeprazole (Omeprazole 40 Mg Capsule.Dr) 40 mg PO DAILY@0630 [facility] Last Admin: 03/07/22 06:24 Dose: 40 mg Polyethylene Glycol (Polyethylene Glycol 3350 17 Gm Powd.Pack) 17 gm PO BID [facility] Last Admin: 03/07/22 08:17 Dose: 17 gm Pseudoephedrine HCl (Pseudoephedrine Hcl 30 Mg Tablet) 30 mg PO Q4H PRN PRN Reason: nasal decongestant Last Admin: 03/07/22 08:58 Dose: 30 mg Thiamine HCl (Thiamine Hcl 100 Mg Tablet) 100 mg PO DAILY [facility] Last Admin: 03/07/22 08:17 Dose: 100 mg Trazodone HCl (Trazodone Hcl 100 Mg Tablet) 100 mg PO BEDTIME PRN PRN Reason: insomnia Last Admin: 03/05/22 21:38 Dose: 100 mg Allergies Allergies Allergy/AdvReac Type Severity Reaction Status Date / Time No Known Allergies Allergy Verified 01/02/22 20:52 Assessment & Plan Assessment & Plan (1) MDD (major depressive disorder), recurrent episode, moderate: Status: Acute Code(s): F33.1 - Major depressive disorder, recurrent, moderate (2) Chronic post-traumatic stress disorder (PTSD): Status: Acute Code(s): F43.12 - Post-traumatic stress disorder, chronic (3) Alcohol dependence: Status: Acute Code(s): F10.20 - Alcohol dependence, uncomplicated (4) Cocaine abuse: Status: Acute Code(s): F14.10 - Cocaine abuse, uncomplicated (5) Fibromyalgia: Status: Acute Code(s): M79.7 - Fibromyalgia Plan [place] is a 41-year-old female who carries a dx of PTSD, MDD, fibromyalgia, and severe alcohol use disorder. She presented to [facility] on 02/27/22 due to worsening depression and SI in context of alcohol abuse, BAL 405 on arrival. Pt?s moose reports she had a suicide attempt by overdose a few nights ago, has been drinking heavily. Pt recently discharged from [facility] M5 01/06-01/09/2022 due to SI, depression, and alcohol abuse in context of multiple psychosocial stressors. Pt has hx of decades long alcohol abuse and trauma.? 03/03 patient remains an active withdrawal, depressed with SI 03/04 patient continues to be in withdrawal, depressed with intermittent passive SI; wants to get on and abuse and wants a program.? Will augment medications for withdrawal 03/05 patient doing a little better, says depression is lessened and no SI; is feeling physically better to and able to eat and sleep, withdrawal symptoms waning.? Patient is considering disulfiram 03/07: Continue current regimen and plan. Plan: Q15 min safety checks, CV CIWA Q 4 while awake; likely nearing the end of withdrawal; Librium taper Increased Cymbalta back to 60 mg (outpatient program lowered it out of concern for bipolar disorder; however this was effectively ruled out last admission and patient feels she did best on this) Will temporarily increase gabapentin for withdrawal symptoms; otherwise Will consider whether to continue gabapentin given patient's overdose and chronic alcoholism (used for fibromyalgia, which untreated triggers relapse) Patient considering disulfiram once patient little more stable DC naltrexone Thiamine/folate/multivitamin Added famotidine for 3 days to augment omeprazole Start antabuse 500 mg daily for AUD, will obtain updated LFTs otherwise: Monitor response to medications. Monitor for safety in the milieu. Discharge on stabilization. Patient seen. Chart reviewed. Discussed with team. Obtain collateral contact info?as needed I spent minutes with the patient and/or on the patient floor today, greater than?50% of which was spent counseling/coordinating care. Reason for contiued inpatient stay Substantial Risk for: med/psych decompensation
[2022-03-07 16:50] VITALS: BP 123/83; PULSE 98; RESP 18; TEMP 36.1; O2SAT 98
[2022-03-07] MEDS: traZODone HCL 100 MG TABLET PO (21:42)
[2022-03-07] MEDS: hydrOXYzine HCL 50 MG TABLET PO (21:42)
[2022-03-08 06:00] VITALS: BP 134/86; PULSE 94; RESP 18; TEMP 36.3; O2SAT 98
[2022-03-08 08:11] LABS: Alanine Aminotransferase 15 U/L (0-31); Albumin Level 3.8 g/dL (3.5-5.0); Alkaline Phosphatase 81 U/L (39-117); Aspartate Amino Transferase 20 U/L (5-31); Total Protein 6.3 g/dL (6.5-8.0)
[2022-03-08] MEDS: polyethylene glycoL 3350 17 GM POWD.PACK PO ×2 (08:23→22:58)
[2022-03-08] MEDS: Multivitamin TABLET 1 TAB PO (08:25)
[2022-03-08] MEDS: Thiamine HCL 100 MG TABLET PO (08:25)
[2022-03-08] MEDS: Gabapentin 400 MG CAPSULE 800 MG PO ×3 (08:25→18:20)
[2022-03-08] MEDS: DULoxetine HCl 60 MG CAPSULE.DR PO (08:25)
[2022-03-08] MEDS: Folic Acid 1 MG TABLET PO (08:25)
[2022-03-08] MEDS: lamoTRIgine 100 MG TABLET PO (08:25)
[2022-03-08] MEDS: Omeprazole 40 MG CAPSULE.DR PO (08:26)
[2022-03-08 08:33] LABS: Bilirubin Direct < 0.2 mg/dL (0.0-0.5)
[2022-03-08 08:44] LABS: Bilirubin Total < 0.2 mg/dL (0.0-1.0)
--- NOTE | 2022-03-08 09:23 | HO.PSYCHPN ---
Subjective Subjective Date of Service: 03/08/22 Reason For Visit: Depression with SI Alcohol cocaine cannabis use di Subjective Notes: Conditional Voluntary Healthcare Proxy: No Guardianship: No Medical Problems Affecting Mental Status: No Interim History: Patient was seen and discussed in rounds today. Records and plans were reviewed. She continues to be stable and is doing better. She denies having any cravings. She is requesting to change her Antabuse to evening use because it makes her very drowsy and was sleeping all day yesterday. No other complaints. Eating and sleeping well. No SI. No other changes were made today Review of Systems Review of Systems Yes all other systems are reviewed and are negative Mental Status Exam Mental Status Exam Narrative: In today's visit she is alert, oriented and pleasant. Normal speech. Moderate eye contact. Appropriate affect. No signs of psychosis. No SI/HI. Cognitively intact. Judgment and Diagnostics Vital Signs (24Hr): Vital Signs - 24 hr 03/07/22 16:50 03/08/22 06:00 Temperature 97.0 F 97.4 F Pulse Rate 98 94 Respiratory Rate 18 18 Blood Pressure 123/83 134/86 Pulse Oximetry 98 98 Oxygen Delivery Method Room Air BMI result Body Mass Index 26.5 Labs Results: 02/27/22 13:46 02/27/22 13:46 Labs: Laboratory Results - last 48 hr 03/08/22 06:59 Total Bilirubin < 0.2 Direct Bilirubin < 0.2 AST 20 ALT 15 Alkaline Phosphatase 81 Total Protein 6.3 L Albumin 3.8 Medications Medications Current Medications Acetaminophen (Acetaminophen 325 Mg Tablet) 650 mg PO Q6H PRN PRN Reason: Headache/Pain Mild Scale (1-3) Last Admin: 03/05/22 09:37 Dose: 650 mg Al Hydroxide/Mg Hydroxide (Magnesium Hydrox/Alum Hydrox 30 Ml Oral.Susp) 30 ml PO Q6H PRN PRN Reason: Heartburn/Nausea Last Admin: 03/06/22 20:33 Dose: 30 ml Albuterol Sulfate (Albuterol Sulfate 90 Mcg 8 Gm Inhaler) 2 puff INHALE Q4H PRN PRN Reason: Shortness Of Breath Clonidine HCl (Clonidine Hcl 0.1 Mg Tablet) 0.1 mg PO TID PRN; Protocol PRN Reason: Anxiety Last Admin: 03/06/22 19:59 Dose: 0.1 mg Disulfiram (Disulfiram 250 Mg Tablet) 500 mg PO BEDTIME [facility] Duloxetine HCl (Duloxetine Hcl 60 Mg Capsule.Dr) 60 mg PO DAILY [facility] Last Admin: 03/08/22 08:25 Dose: 60 mg Fluticasone Propionate (Fluticasone Propionate Nasal 16 Gm [place]) 1 spray NOSTRIL-B BID [facility] Last Admin: 03/08/22 09:06 Dose: Not Given Folic Acid (Folic Acid 1 Mg Tablet) 1 mg PO DAILY [facility] Last Admin: 03/08/22 08:25 Dose: 1 mg Gabapentin (Gabapentin 400 Mg Capsule) 800 mg PO TID@0800,1200,1700 [facility] Last Admin: 03/08/22 08:25 Dose: 800 mg Hydroxyzine HCl (Hydroxyzine Hcl 50 Mg Tablet) 50 mg PO TID PRN PRN Reason: Anxiety Last Admin: 03/07/22 21:42 Dose: 50 mg Lamotrigine (Lamotrigine 100 Mg Tablet) 100 mg PO DAILY [facility] Last Admin: 03/08/22 08:25 Dose: 100 mg Lorazepam (Lorazepam 1 Mg Tablet) 2 mg PO Q2H PRN PRN Reason: alcohol withdrawal, CIWA =/>10 Last Admin: 03/03/22 16:26 Dose: 2 mg Lorazepam (Lorazepam 1 Mg Tablet) 1 mg PO Q2H PRN PRN Reason: CIWA 6-9 Last Admin: 03/04/22 10:03 Dose: 1 mg Magnesium Hydroxide (Milk Of Magnesia 30 Ml Oral.Susp) 30 ml PO DAILY PRN PRN Reason: Constipation Melatonin (Melatonin 3 Mg Tablet) 9 mg PO BEDTIME PRN PRN Reason: insomnia Last Admin: 03/04/22 20:59 Dose: 9 mg Multi-Ingred Medicated Throat [place] (Throat [place], Medicated 20 Ml Bottle) 1 spray MUCOUS MEM Q2H PRN PRN Reason: Dry Mouth Last Admin: 03/06/22 04:16 Dose: 1 spray Multivitamins/Vitamin C (Multivitamin Tablet) 1 tab PO DAILY [facility] Last Admin: 03/08/22 08:25 Dose: 1 tab Nicotine (Nicotine 21 Mg Patch.Td24) 21 mg TRANSDERMA DAILY PRN PRN Reason: smoking cessation Nicotine Polacrilex (Nicotine Polacrilex Lozenge 4 Mg Lozenge) 4 mg BUCCAL Q2H PRN PRN Reason: Nicotine Cravings Last Admin: 03/06/22 22:28 Dose: 4 mg Omeprazole (Omeprazole 40 Mg Capsule.Dr) 40 mg PO DAILY@0630 [facility] Last Admin: 03/08/22 08:26 Dose: 40 mg Polyethylene Glycol (Polyethylene Glycol 3350 17 Gm Powd.Pack) 17 gm PO BID [facility] Last Admin: 03/08/22 08:23 Dose: 17 gm Pseudoephedrine HCl (Pseudoephedrine Hcl 30 Mg Tablet) 30 mg PO Q4H PRN PRN Reason: nasal decongestant Last Admin: 03/07/22 21:42 Dose: 30 mg Thiamine HCl (Thiamine Hcl 100 Mg Tablet) 100 mg PO DAILY [facility] Last Admin: 03/08/22 08:25 Dose: 100 mg Trazodone HCl (Trazodone Hcl 100 Mg Tablet) 100 mg PO BEDTIME PRN PRN Reason: insomnia Last Admin: 03/07/22 21:42 Dose: 100 mg Allergies Allergies Allergy/AdvReac Type Severity Reaction Status Date / Time No Known Allergies Allergy Verified 01/02/22 20:52 Assessment & Plan Assessment & Plan (1) MDD (major depressive disorder), recurrent episode, moderate: Status: Acute Code(s): F33.1 - Major depressive disorder, recurrent, moderate (2) Chronic post-traumatic stress disorder (PTSD): Status: Acute Code(s): F43.12 - Post-traumatic stress disorder, chronic (3) Alcohol dependence: Status: Acute Code(s): F10.20 - Alcohol dependence, uncomplicated (4) Cocaine abuse: Status: Acute Code(s): F14.10 - Cocaine abuse, uncomplicated (5) Fibromyalgia: Status: Acute Code(s): M79.7 - Fibromyalgia Plan [place] is a 41-year-old female who carries a dx of PTSD, MDD, fibromyalgia, and severe alcohol use disorder. She presented to [facility] on 02/27/22 due to worsening depression and SI in context of alcohol abuse, BAL 405 on arrival. Pt?s fiance reports she had a suicide attempt by overdose a few nights ago, has been drinking heavily. Pt recently discharged from [facility] M5 01/06-01/09/2022 due to SI, depression, and alcohol abuse in context of multiple psychosocial stressors. Pt has hx of decades long alcohol abuse and trauma.? 03/03 patient remains an active withdrawal, depressed with SI 03/04 patient continues to be in withdrawal, depressed with intermittent passive SI; wants to get on and abuse and wants a program.? Will augment medications for withdrawal 03/05 patient doing a little better, says depression is lessened and no SI; is feeling physically better to and able to eat and sleep, withdrawal symptoms waning.? Patient is considering disulfiram 03/07: Continue current regimen and plan. 03/08: Continue current plans and regimen. Change Antabuse to PM use Plan: Q15 min safety checks, CV CIWA Q 4 while awake; likely nearing the end of withdrawal; Librium taper Increased Cymbalta back to 60 mg (outpatient program lowered it out of concern for bipolar disorder; however this was effectively ruled out last admission and patient feels she did best on this) Will temporarily increase gabapentin for withdrawal symptoms; otherwise Will consider whether to continue gabapentin given patient's overdose and chronic alcoholism (used for fibromyalgia, which untreated triggers relapse) Patient considering disulfiram once patient little more stable DC naltrexone Thiamine/folate/multivitamin Added famotidine for 3 days to augment omeprazole Start antabuse 500 mg daily for AUD, will obtain updated LFTs otherwise: Monitor response to medications. Monitor for safety in the milieu. Discharge on stabilization. Patient seen. Chart reviewed. Discussed with team. Obtain collateral contact info?as needed I spent minutes with the patient and/or on the patient floor today, greater than?50% of which was spent counseling/coordinating care. Reason for contiued inpatient stay Substantial Risk for: med/psych decompensation
[2022-03-08 18:41] VITALS: BP 145/74; PULSE 104; RESP 20; TEMP 36.7; O2SAT 99
[2022-03-08] MEDS: cloNIDine HCL 0.1 MG TABLET PO ×2 (19:03→23:42)
[2022-03-08] MEDS: Disulfiram 250 MG TABLET 500 MG PO (22:58)
[2022-03-08] MEDS: traZODone HCL 100 MG TABLET PO (22:59)
[2022-03-08] MEDS: hydrOXYzine HCL 50 MG TABLET PO (23:02)
[2022-03-08] MEDS: Melatonin 3 MG TABLET 9 MG PO (23:42)
[2022-03-09 06:00] VITALS: BP 131/89; PULSE 96; RESP 18; TEMP 36.4; O2SAT 98
[2022-03-09] MEDS: Omeprazole 40 MG CAPSULE.DR PO (06:12)
[2022-03-09] MEDS: Gabapentin 400 MG CAPSULE 800 MG PO ×3 (08:26→17:17)
[2022-03-09] MEDS: DULoxetine HCl 60 MG CAPSULE.DR PO (08:26)
[2022-03-09] MEDS: Folic Acid 1 MG TABLET PO (08:26)
[2022-03-09] MEDS: lamoTRIgine 100 MG TABLET PO (08:27)
[2022-03-09] MEDS: Multivitamin TABLET 1 TAB PO (08:27)
[2022-03-09] MEDS: polyethylene glycoL 3350 17 GM POWD.PACK PO ×2 (08:28→20:27)
[2022-03-09] MEDS: Thiamine HCL 100 MG TABLET PO (08:28)
[2022-03-09] MEDS: Pseudoephedrine HCL 30 MG TABLET PO ×2 (08:32→20:24)
--- NOTE | 2022-03-09 10:31 | P.PNPSI_ITS ---
Subjective Subjective Date of Service: 03/09/22 Reason For Visit: Depression with SI Alcohol cocaine cannabis use di Interim History: Patient reports being in a good mood and of note has bright affect. Anxiety is under control. She reports eating and sleeping well. She is a little anxious about going to the program but also excited. Patient says she is tolerating medications well and wants to continue. Mental Status Exam Mental Status Exam Narrative: Pt is alert and oriented; behavior is cooperative, calm, friendly; dressed in casual attire, adequately groomed; mood is described as good and affect congruent, brighter; appropriate eye contact; Speech is normal rate, volume and prosody and not pressured; no psychomotor retardation present; thought process is organized and goal directed; Thought content is on hope, continued treatment; otherwise pertinent to relevant topics and without any delusional content, paranoid ideations or grandiosity; no SI; no HI; There is no evidence of perceptual disturbance; no AVH; Patients insight and judgment are fair. Diagnostics Vital Signs (24Hr): Vital Signs - 24 hr 03/08/22 18:41 03/09/22 06:00 Temperature 98.0 F 97.6 F Pulse Rate 104 H 96 Respiratory Rate 20 18 Blood Pressure 145/74 H 131/89 Pulse Oximetry 99 98 Oxygen Delivery Method Room Air BMI result Body Mass Index 26.5 Labs Results: 02/27/22 13:46 02/27/22 13:46 Labs: Laboratory Results - last 48 hr 03/08/22 06:59 Total Bilirubin < 0.2 Direct Bilirubin < 0.2 AST 20 ALT 15 Alkaline Phosphatase 81 Total Protein 6.3 L Albumin 3.8 Medications Medications Current Medications Acetaminophen (Acetaminophen 325 Mg Tablet) 650 mg PO Q6H PRN PRN Reason: Headache/Pain Mild Scale (1-3) Last Admin: 03/05/22 09:37 Dose: 650 mg Al Hydroxide/Mg Hydroxide (Magnesium Hydrox/Alum Hydrox 30 Ml Oral.Susp) 30 ml PO Q6H PRN PRN Reason: Heartburn/Nausea Last Admin: 03/06/22 20:33 Dose: 30 ml Albuterol Sulfate (Albuterol Sulfate 90 Mcg 8 Gm Inhaler) 2 puff INHALE Q4H PRN PRN Reason: Shortness Of Breath Clonidine HCl (Clonidine Hcl 0.1 Mg Tablet) 0.1 mg PO TID PRN; Protocol PRN Reason: Anxiety Last Admin: 03/08/22 23:42 Dose: 0.1 mg Disulfiram (Disulfiram 250 Mg Tablet) 500 mg PO BEDTIME REPLACED BY [facility] Last Admin: 03/08/22 22:58 Dose: 500 mg Duloxetine HCl (Duloxetine Hcl 60 Mg Capsule.Dr) 60 mg PO DAILY [facility] Last Admin: 03/09/22 08:26 Dose: 60 mg Fluticasone Propionate (Fluticasone Propionate Nasal 16 Gm [place]) 1 spray NOSTRIL-B BID [facility]PL[facility] Last Admin: 03/09/22 08:35 Dose: Not Given Folic Acid (Folic Acid 1 Mg Tablet) 1 mg PO DAILY [facility] Last Admin: 03/09/22 08:26 Dose: 1 mg Gabapentin (Gabapentin 400 Mg Capsule) 800 mg PO TID@0800,1200,1700 [facility]PL[facility] Last Admin: 03/09/22 08:26 Dose: 800 mg Hydroxyzine HCl (Hydroxyzine Hcl 50 Mg Tablet) 50 mg PO TID PRN PRN Reason: Anxiety Last Admin: 03/08/22 23:02 Dose: 50 mg Lamotrigine (Lamotrigine 100 Mg Tablet) 100 mg PO DAILY [facility] Last Admin: 03/09/22 08:27 Dose: 100 mg Magnesium Hydroxide (Milk Of Magnesia 30 Ml Oral.Susp) 30 ml PO DAILY PRN PRN Reason: Constipation Melatonin (Melatonin 3 Mg Tablet) 9 mg PO BEDTIME PRN PRN Reason: insomnia Last Admin: 03/08/22 23:42 Dose: 9 mg Multi-Ingred Medicated Throat [place] (Throat [place], Medicated 20 Ml Bottle) 1 sp ray MUCOUS MEM Q2H PRN PRN Reason: Dry Mouth Last Admin: 03/06/22 04:16 Dose: 1 spray Multivitamins/Vitamin C (Multivitamin Tablet) 1 tab PO DAILY [facility] Last Admin: 03/09/22 08:27 Dose: 1 tab Nicotine (Nicotine 21 Mg Patch.Td24) 21 mg TRANSDERMA DAILY PRN PRN Reason: smoking cessation Nicotine Polacrilex (Nicotine Polacrilex Lozenge 4 Mg Lozenge) 4 mg BUCCAL Q2H PRN PRN Reason: Nicotine Cravings Last Admin: 03/06/22 22:28 Dose: 4 mg Omeprazole (Omeprazole 40 Mg Capsule.Dr) 40 mg PO DAILY@0630 [facility] Last Admin: 03/09/22 06:12 Dose: 40 mg Polyethylene Glycol (Polyethylene Glycol 3350 17 Gm Powd.Pack) 17 gm PO BID [facility] Last Admin: 03/09/22 08:28 Dose: 17 gm Pseudoephedrine HCl (Pseudoephedrine Hcl 30 Mg Tablet) 30 mg PO Q4H PRN PRN Reason: nasal decongestant Last Admin: 03/09/22 08:32 Dose: 30 mg Thiamine HCl (Thiamine Hcl 100 Mg Tablet) 100 mg PO DAILY [facility] Last Admin: 03/09/22 08:28 Dose: 100 mg Trazodone HCl (Trazodone Hcl 100 Mg Tablet) 100 mg PO BEDTIME PRN PRN Reason: insomnia Last Admin: 03/08/22 22:59 Dose: 100 mg Allergies Allergies Allergy/AdvReac Type Severity Reaction Status Date / Time No Known Allergies Allergy Verified 01/02/22 20:52 Assessment & Plan Assessment & Plan (1) MDD (major depressive disorder), recurrent episode, moderate: Status: Acute Code(s): F33.1 - Major depressive disorder, recurrent, moderate (2) Chronic post-traumatic stress disorder (PTSD): Status: Acute Code(s): F43.12 - Post-traumatic stress disorder, chronic (3) Alcohol dependence: Status: Acute Code(s): F10.20 - Alcohol dependence, uncomplicated (4) Cocaine abuse: Status: Acute Code(s): F14.10 - Cocaine abuse, uncomplicated (5) Fibromyalgia: Status: Acute Code(s): M79.7 - Fibromyalgia Plan [place] is a 41-year-old female who carries a dx of PTSD, MDD, fibromyalgia, and severe alcohol use disorder. She presented to [facility] on 02/27/22 due to worsening depression and SI in context of alcohol abuse, BAL 405 on arrival. Pt?s rupertoance reports she had a suicide attempt by overdose a few nights ago, has been drinking heavily. Pt recently discharged from [facility] M5 01/06-01/09/2022 due to SI, depression, and alcohol abuse in context of multiple psychosocial stress ors. Pt has hx of decades long alcohol abuse and trauma.? 03/03 patient remains an active withdrawal, depressed with SI 03/04 patient continues to be in withdrawal, depressed with intermittent passive SI; wants to get on and abuse and wants a program.? Will augment medications for withdrawal 03/05 patient doing a little better, says depression is lessened and no SI; is feeling physically better to and able to eat and sleep, withdrawal symptoms waning.? Patient is considering disulfiram 03/07: Continue current regimen and plan. 03/08: Continue current plans and regimen. Change Antabuse to PM use 03/09 good mood, bright affect, no SI; hopeful about continued treatment and looking for to going to program. Tolerating medications well Plan: Q15 min safety checks, CV Cymbalta back to 60 mg (outpatient program lowered it out of concern for bipolar disorder; however this was effectively ruled out last admission and patient feels she did best on this) Increase gabapentin for fibromyalgia since patient is going to a structured environment that will have control over her medications Continue disulfiram 500 mg daily (thoroughly reviewed risks/side effects of this medication which patient understands, ask questions about and agrees to continue taking) Recheck LFTs DC naltrexone Thiamine/folate/multivitamin Added famotidine for 3 days to augment omeprazole otherwise: Monitor response to medications. Monitor for safety in the milieu. Discharge on stabilization. Patient seen. Chart reviewed. Discussed with team. Obtain collateral contact info?as needed I spent minutes with the patient and/or on the patient floor today, greater than?50% of which was spent counseling/coordinating care. Patient educated on: diagnosis, medication risk/benefits, substance abuse and therapeutic strategies Informed Consent: understands Reason for contiued inpatient stay Substantial Risk for: stable for discharge
[2022-03-09 20:20] VITALS: BP 118/85; PULSE 82; TEMP 36; O2SAT 100
[2022-03-09] MEDS: Melatonin 3 MG TABLET 9 MG PO (20:24)
[2022-03-09] MEDS: hydrOXYzine HCL 50 MG TABLET PO (20:24)
[2022-03-09] MEDS: Disulfiram 250 MG TABLET 500 MG PO (20:24)
[2022-03-09] MEDS: traZODone HCL 100 MG TABLET PO (20:24)
[2022-03-10 06:38] VITALS: BP 117/62; PULSE 80; RESP 18; TEMP 36.4; O2SAT 98
[2022-03-10] MEDS: Omeprazole 40 MG CAPSULE.DR PO (08:47)
[2022-03-10] MEDS: Gabapentin 400 MG CAPSULE 800 MG PO ×3 (08:47→17:06)
[2022-03-10] MEDS: polyethylene glycoL 3350 17 GM POWD.PACK PO (08:47)
[2022-03-10] MEDS: lamoTRIgine 100 MG TABLET PO (08:47)
[2022-03-10] MEDS: Thiamine HCL 100 MG TABLET PO (08:47)
[2022-03-10] MEDS: DULoxetine HCl 60 MG CAPSULE.DR PO (08:47)
[2022-03-10] MEDS: Pseudoephedrine HCL 30 MG TABLET PO ×2 (08:47→22:31)
[2022-03-10] MEDS: Multivitamin TABLET 1 TAB PO (08:47)
[2022-03-10] MEDS: Folic Acid 1 MG TABLET PO (08:47)
[2022-03-10 09:27] LABS: Alanine Aminotransferase 15 U/L (0-31); Albumin Level 3.9 g/dL (3.5-5.0); Alkaline Phosphatase 79 U/L (39-117); Aspartate Amino Transferase 19 U/L (5-31); Bilirubin Direct < 0.2 mg/dL (0.0-0.5); Bilirubin Total < 0.2 mg/dL (0.0-1.0); Total Protein 6.4 g/dL (6.5-8.0)
--- NOTE | 2022-03-10 10:38 | HO.PSYCHPN ---
Subjective Subjective Date of Service: 03/10/22 Reason For Visit: Depression with SI Alcohol cocaine cannabis use di Interim History: Good mood, slept well; denies any SI, bright affect. Eager to go to program. Denies medication side effects and repeat liver enzymes remain within normal limits. Gave patient handout listing foods/drinks/items to avoid while on disulfiram, which patient asked questions about and understood. Mental Status Exam Mental Status Exam Narrative: Pt is alert and oriented; behavior is cooperative, calm, friendly; dressed in casual attire, adequately groomed; mood is described as good and affect congruent, brighter; appropriate eye contact; Speech is normal rate, volume and prosody and not pressured; no psychomotor retardation present; thought process is organized and goal directed; Thought content is on hope, continued treatment; otherwise pertinent to relevant topics and without any delusional content, paranoid ideations or grandiosity; no SI; no HI; There is no evidence of perceptual disturbance; no AVH; Patients insight and judgment are fair. Diagnostics Vital Signs (24Hr): Vital Signs - 24 hr 03/09/22 20:20 03/10/22 06:38 Temperature 96.8 F 97.6 F Pulse Rate 82 80 Respiratory Rate 18 Blood Pressure 118/85 117/62 Pulse Oximetry 100 98 Oxygen Delivery Method Room Air Room Air BMI result Body Mass Index 26.5 Labs Results: 02/27/22 13:46 02/27/22 13:46 Labs: Laboratory Results - last 48 hr 03/10/22 07:57 Total Bilirubin < 0.2 Direct Bilirubin < 0.2 AST 19 ALT 15 Alkaline Phosphatase 79 Total Protein 6.4 L Albumin 3.9 Medications Medications Current Medications Acetaminophen (Acetaminophen 325 Mg Tablet) 650 mg PO Q6H PRN PRN Reason: Headache/Pain Mild Scale (1-3) Last Admin: 03/05/22 09:37 Dose: 650 mg Al Hydroxide/Mg Hydroxide (Magnesium Hydrox/Alum Hydrox 30 Ml Oral.Susp) 30 ml PO Q6H PRN PRN Reason: Heartburn/Nausea Last Admin: 03/06/22 20:33 Dose: 30 ml Albuterol Sulfate (Albuterol Sulfate 90 Mcg 8 Gm Inhaler) 2 puff INHALE Q4H PRN PRN Reason: Shortness Of Breath Clonidine HCl (Clonidine Hcl 0.1 Mg Tablet) 0.1 mg PO TID PRN; Protocol PRN Reason: Anxiety Last Admin: 03/08/22 23:42 Dose: 0.1 mg Disulfiram (Disulfiram 250 Mg Tablet) 500 mg PO BEDTIME [facility] Last Admin: 03/09/22 20:24 Dose: 500 mg Duloxetine HCl (Duloxetine Hcl 60 Mg Capsule.Dr) 60 mg PO DAILY [facility] Last Admin: 03/10/22 08:47 Dose: 60 mg Fluticasone Propionate (Fluticasone Propionate Nasal 16 Gm [place]) 1 spray NOSTRIL-B BID [facility] Last Admin: 03/10/22 08:48 Dose: Not Given Folic Acid (Folic Acid 1 Mg Tablet) 1 mg PO DAILY [facility] Last Admin: 03/10/22 08:47 Dose: 1 mg Gabapentin (Gabapentin 400 Mg Capsule) 800 mg PO TID@0800,1200,1700 [facility] Last Admin: 03/10/22 08:47 Dose: 800 mg Hydroxyzine HCl (Hydroxyzine Hcl 50 Mg Tablet) 50 mg PO TID PRN PRN Reason: Anxiety Last Admin: 03/09/22 20:24 Dose: 50 mg Lamotrigine (Lamotrigine 100 Mg Tablet) 100 mg PO DAILY [facility] Last Admin: 03/10/22 08:47 Dose: 100 mg Magnesium Hydroxide (Milk Of Magnesia 30 Ml Oral.Susp) 30 ml PO DAILY PRN PRN Reason: Constipation Melatonin (Melatonin 3 Mg Tablet) 9 mg PO BEDTIME PRN PRN Reason: insomnia Last Admin: 03/09/22 20:24 Dose: 9 mg Multi-Ingred Medicated Throat [place] (Throat [place], Medicated 20 Ml Bottle) 1 spray MUCOUS MEM Q2H PRN PRN Reason: Dry Mouth Last Admin: 03/06/22 04:16 Dose: 1 spray Multivitamins/Vitamin C (Multivitamin Tablet) 1 tab PO DAILY [facility] Last Admin: 03/10/22 08:47 Dose: 1 tab Nicotine (Nicotine 21 Mg Patch.Td24) 21 mg TRANSDERMA DAILY PRN PRN Reason: smoking cessation Nicotine Polacrilex (Nicotine Polacrilex Lozenge 4 Mg Lozenge) 4 mg BUCCAL Q2H PRN PRN Reason: Nicotine Cravings Last Admin: 03/06/22 22:28 Dose: 4 mg Omeprazole (Omeprazole 40 Mg Capsule.) 40 mg PO DAILY@0630 [facility] Last Admin: 03/10/22 08:47 Dose: 40 mg Polyethylene Glycol (Polyethylene Glycol 3350 17 Gm Powd.Pack) 17 gm PO BID [facility] Last Admin: 03/10/22 08:47 Dose: 17 gm Pseudoephedrine HCl (Pseudoephedrine Hcl 30 Mg Tablet) 30 mg PO Q4H PRN PRN Reason: nasal decongestant Last Admin: 03/10/22 08:47 Dose: 30 mg Thiamine HCl (Thiamine Hcl 100 Mg Tablet) 100 mg PO DAILY [facility] Last Admin: 03/10/22 08:47 Dose: 100 mg Trazodone HCl (Trazodone Hcl 100 Mg Tablet) 100 mg PO BEDTIME PRN PRN Reason: insomnia Last Admin: 03/09/22 20:24 Dose: 100 mg Allergies Allergies Allergy/AdvReac Type Severity Reaction Status Date / Time No Known Allergies Allergy Verified 01/02/22 20:52 Assessment & Plan Assessment & Plan (1) MDD (major depressive disorder), recurrent episode, moderate: Status: Acute Code(s): F33.1 - Major depressive disorder, recurrent, moderate (2) Chronic post-traumatic stress disorder (PTSD): Status: Acute Code(s): F43.12 - Post-traumatic stress disorder, chronic (3) Alcohol dependence: Status: Acute Code(s): F10.20 - Alcohol dependence, uncomplicated (4) Cocaine abuse: Status: Acute Code(s): F14.10 - Cocaine abuse, uncomplicated (5) Fibromyalgia: Status: Acute Code(s): M79.7 - Fibromyalgia Plan [place] is a 41-year-old female who carries a dx of PTSD, MDD, fibromyalgia, and severe alcohol use disorder. She presented to [facility] on 02/27/22 due to worsening depression and SI in context of alcohol abuse, BAL 405 on arrival. Pt?s moose reports she had a suicide attempt by overdose a few nights ago, has been drinking heavily. Pt recently discharged from [facility] M5 01/06-01/09/2022 due to SI, depression, and alcohol abuse in context of multiple psychosocial stressors. Pt has hx of decades long alcohol abuse and trauma.? 03/03 patient remains an active withdrawal, depressed with SI 03/04 patient continues to be in withdrawal, depressed with intermittent passive SI; wants to get on and abuse and wants a program.? Will augment medications for withdrawal 03/05 patient doing a little better, says depression is lessened and no SI; is feeling physically better to and able to eat and sleep, withdrawal symptoms waning.? Patient is considering disulfiram 03/07: Continue current regimen and plan. 03/08: Continue current plans and regimen. Change Antabuse to PM use 03/09 good mood, bright affect, no SI; hopeful about continued treatment and looking for to going to program. Tolerating medications well 03/10 remains in good mood, bright affect, no SI and looking forward to the program for which she has been accepted. Patient is not in imminent risk for harm to self or others and is appropriate for discharge Plan: Q15 min safety checks, CV Cymbalta back to 60 mg (outpatient program lowered it out of concern for bipolar disorder; however this was effectively ruled out last admission and patient feels she did best on this) Increase gabapentin for fibromyalgia since patient is going to a structured environment that will have control over her medications Continue disulfiram 500 mg daily (thoroughly reviewed risks/side effects of this medication which patient understands, ask questions about and agrees to continue taking) Recheck LFTs DC naltrexone Thiamine/folate/multivitamin Added famotidine for 3 days to augment omeprazole otherwise: Monitor response to medications. Monitor for safety in the milieu. Discharge on stabilization. Patient seen. Chart reviewed. Discussed with team. Obtain collateral contact info?as needed I spent minutes with the patient and/or on the patient floor today, greater than?50% of which was spent counseling/coordinating care. Patient educated on: medication risk/benefits and substance abuse Informed Consent: understands Reason for contiued inpatient stay Substantial Risk for: stable for discharge
[2022-03-10] MEDS: cloNIDine HCL 0.1 MG TABLET PO (12:31)
[2022-03-10 18:00] VITALS: BP 147/65; PULSE 87; RESP 16; TEMP 36.2; O2SAT 97
[2022-03-10] MEDS: Disulfiram 250 MG TABLET 500 MG PO (22:31)
[2022-03-10] MEDS: traZODone HCL 100 MG TABLET PO (22:31)
[2022-03-10] MEDS: Melatonin 3 MG TABLET 9 MG PO (22:31)
[2022-03-11 06:50] LABS: COVID-19 Test Negative (Negative)
--- NOTE | 2022-03-11 08:39 | P.DS_ITS ---
DS: Providers Provider Date of Service: 03/11/22 Date of admission: 03/02/22 13:54 Date of discharge: 03/11/22 Primary care physician: Unknown Physician Admitting clinician: Julianna White Attending physician on discharge: Jet Jeff DS: Diagnosis Discharge Diagnosis (1) MDD (major depressive disorder), recurrent episode, moderate: Status: Acute (2) Chronic post-traumatic stress disorder (PTSD): Status: Acute (3) Alcohol dependence: Status: Acute (4) Cocaine abuse: Status: Acute (5) Fibromyalgia: Status: Acute DS: Medications Discharge Medications Home Medications: Previous Rx's Medication Instructions Recorded albuterol sulfate 90 mcg/actuation 2 puff inhalation Q4H PRN 03/11/22 aerosol inhaler (ProAir HFA) Shortness Of Breath 30 days #6.7 grams aluminum-magnesium hydroxide 200 30 ml PO Q6H PRN Heartburn/Nausea 03/11/22 mg-200 mg/5 mL oral suspension #0 mL (MAG-AL) clonidine HCl 0.1 mg tablet 0.1 mg PO TID PRN Anxiety 30 days 03/11/22 #90 tabs disulfiram 250 mg tablet 250 mg PO DAILY 30 days #30 tabs 03/11/22 disulfiram 250 mg tablet See Rx Instructions .Route 03/11/22 .COMPLEX 30 days #37 tabs duloxetine 60 mg capsule,delayed 60 mg PO DAILY 30 days #30 caps 03/11/22 release fluticasone propionate 50 1 spray intranasal BID 30 days #16 03/11/22 mcg/actuation nasal grams spray,suspension folic acid 1 mg tablet 1 mg PO DAILY 30 days #30 tabs 03/11/22 gabapentin 800 mg tablet 800 mg PO TID 30 days #90 tabs 03/11/22 hydroxyzine HCl 50 mg tablet 50 mg PO TID PRN Anxiety 30 days 03/11/22 #60 tabs lamotrigine 100 mg tablet 100 mg PO DAILY 30 days #30 tabs 03/11/22 magnesium hydroxide 400 mg/5 mL 30 ml PO DAILY PRN Constipation #0 03/11/22 oral suspension (Milk of Magnesia) mL melatonin 3 mg tablet 9 mg PO BEDTIME PRN insomnia 30 03/11/22 days #90 tabs omeprazole 40 mg capsule,delayed 40 mg PO DAILY 30 days #30 caps 03/11/22 release polyethylene glycol 3350 17 gram 17 g PO BID PRN constipation 30 03/11/22 oral powder packet days #60 ea thiamine HCl (vitamin B1) 100 mg 100 mg PO DAILY 30 days #30 tabs 03/11/22 tablet trazodone 100 mg tablet 100 mg PO BEDTIME PRN insomnia 30 03/11/22 days #30 tabs Mental Status Exam Mental Status Exam Narrative: Pt is alert and oriented; behavior is cooperative, calm, friendly; dressed in casual attire, adequately groomed; mood is described as good and affect congruent, brighter; appropriate eye contact; Speech is normal rate, volume and prosody and not pressured; no psychomotor retardation present; thought process is organized and goal directed; Thought content is on hope, continued treatment; otherwise pertinent to relevant topics and without any delusional content, paranoid ideations or grandiosity; no SI; no HI; There is no evidence of perceptual disturbance; no AVH; Patients insight and judgment are fair. Data Data Completed and Pending Completed studies during hospitalization [Text1]: 03/08/22 03/10/22 03/11/22 06:59 07:57 06:28 Total Bilirubin < 0.2 < 0.2 Direct Bilirubin < 0.2 < 0.2 AST 20 19 ALT 15 15 Alkaline Phosphatase 81 79 Total Protein 6.3 L 6.4 L Albumin 3.8 3.9 COVID-19 ([facility]) Negative COVID-19 Clin Com See Note DS: Summary Hospital Course Hospital Course: [place] is a 41-year-old female who carries a dx of PTSD, MDD, fibromyalgia, and severe alcohol use disorder. She presented to [facility] ED on 02/27/22 due to worsening depression and SI in context of alcohol abuse, BAL 405 on arrival. Pt?s fiance reports she had a suicide attempt by overdose a few nights ago, has been drinking heavily. Pt recently discharged from [facility] 01/06-01/09/2022 due to SI, depression, and alcohol abuse in context of multiple psychosocial stressors. Pt has hx of decades long alcohol abuse and trauma.? On admission, patient was depressed with passive SI and in withdrawal. However she detoxed without incident. Her Cymbalta was increased back to 60 mg and soon patient's mood improved and SI fully resolved. Patient was thoroughly engaged in treatment, 1 on 1 sessions, going to groups and working to pursue sobriety. She very much wanted to go to a CSS/TSS program and then get into sober housing. Patient was initially ambivalent about starting disulfiram, however she was too worried about alcohol relapse and it's consequences and decided that potential benefit of this medication was worth the risks (thoroughly reviewed risks/side effects of this medication which patient understands, including medications, food and other things necessary to avoid while on this medication; ask questions about and agrees to continue taking). Patient's mood continued to improve and she reported depression fully resolved. She was sleeping well, eating well and optimistic about pursuing sobriety. Patient remained appropriate with peers and staff and demonstrated good behavioral and impulse control on the unit. She tolerated medications well and lab values were within normal limits. Patient was accepted to a program and was excited to go. She was not in imminent risk for harm to self or others and appropriate for discharge. Time spent discussing smoking cessation with patient: 3 to 10 minutes Status at Discharge Functional status at discharge: independent ambulation Overall status at discharge: patient is back to baseline Time Spent with Patient Time attestation: Total time spent providing and/or coordinating discharge services: Time spent: Less than 30 minutes Discharge Plan Discharge Patient Disposition: Home, Self-Care Discharge Diagnosis: MDD, recurrent, severe in full remission Referrals: Therapy: Yuly Hernandez [Other] - 03/12/22 12:00 pm (This is a Telehealth appointment) Psychiatric Medication Evaluation: Clarisa Chapa [Other] - 04/08/22 1:40 pm (This is a virtual Telehealth appointment) Psychiatric Medication Management: Clarisa Chapa [Other] - 05/05/22 1:00 pm (This is a virtual Telehealth appointment) Tonja Mckeon MD [Physician] - 04/17/22 9:00 am (in office) Discharge Medications: New duloxetine 60 mg Capsule,Delayed Release(Dr/Ec) 60 mg PO DAILY 30 Days Qty: 30 1RF gabapentin 800 mg tablet 800 mg PO TID 30 Days Qty: 90 1RF fluticasone propionate 50 mcg/actuation [place],Suspension 1 spray intranasal BID 30 Days Qty: 16 1RF polyethylene glycol 3350 17 gram Powder In Packet 17 g PO BID PRN (Reason: constipation) 30 Days Qty: 60 1RF magnesium hydroxide [Milk of Magnesia] 400 mg/5 mL Suspension 30 ml PO DAILY PRN (Reason: Constipation) Qty: 0 0RF MAG-AL 200-200 mg/5 mL Suspension 30 ml PO Q6H PRN (Reason: Heartburn/Nausea) Qty: 0 0RF disulfiram 250 mg Tablet See Rx Instructions .ROUTE .COMPLEX 30 Days Qty: 37 0RF Rx Instructions: take 2 tabs daily for 7 days; then take 1 tab daily disulfiram 250 mg tablet 250 mg PO DAILY 30 Days Qty: 30 0RF Continued thiamine HCl (vitamin B1) 100 mg Tablet 100 mg PO DAILY 30 Days Qty: 30 0RF omeprazole 40 mg Capsule,Delayed Release(Dr/Ec) 40 mg PO DAILY 30 Days Qty: 30 1RF folic acid 1 mg Tablet 1 mg PO DAILY 30 Days Qty: 30 0RF albuterol sulfate [ProAir HFA] 90 mcg/actuation Hfa Aerosol Inhaler 2 puff INHALATION Q4H PRN (Reason: Shortness Of Breath) 30 Days Qty: 6.7 1RF lamotrigine 100 mg tablet 100 mg PO DAILY 30 Days Qty: 30 1RF Changed clonidine HCl 0.1 mg tablet 0.1 mg PO TID PRN (Reason: Anxiety) 30 Days Qty: 90 1RF hydroxyzine HCl 50 mg tablet 50 mg PO TID PRN (Reason: Anxiety) 30 Days Qty: 60 1RF melatonin 3 mg tablet 9 mg PO BEDTIME PRN (Reason: insomnia) 30 Days Qty: 90 1RF trazodone 100 mg tablet 100 mg PO BEDTIME PRN (Reason: insomnia) 30 Days Qty: 30 1RF Discontinued gabapentin 600 mg Tablet 600 mg PO TID 30 Days Qty: 90 0RF naltrexone 50 mg tablet 1 tab PO DAILY duloxetine 30 mg capsule,delayed release(DR/EC) 1 cap PO DAILY Discharge Orders: Discharge Order (Routine); Ordered 03/11/22 Ordered By: Jet Jeff Diet: Advance to usual diet Activity on Discharge: As tolerated Stand Alone Forms: Patient Portal Discharge page, Community Support Other Ambulatory Orders: Liver Panel (Routine) Timeframe: 20220320 Facility: [facility] - Location: Laboratory Ordered By: Jet Jeff Liver Panel (Routine) Timeframe: 20220406 Facility: [facility] - Location: Laboratory Ordered By: Jet Jeff TSH reflex Free T4 (Routine) Timeframe: [id number] Facility: [facility] - Location: Laboratory Ordered By: Jet Jeff Care Plan Goals: Maintain mood and safe behaviors Take medications as prescribed Continue to pursue sobriety Practice coping skills Continue with outpatient providers and reach out to them as needed Health Concerns: Mood stability and behaviors Sobriety GERD Fibromyalgia Plan of Treatment: Follow up with your PCP, psychiatric provider and other outpatient providers regarding above concerns Take medications as prescribed Assessment: Risk assessment at time of discharge:? Patient was interviewed prior to discharge and found to be fully oriented and without any SI or HI. Patient has insight and demonstrates good judgment in terms of wanting to pursue treatment. Patient is not in imminent risk of harm to self or others and has a safety plan that includes presenting to the closest ER or calling 911 if feeling unsafe.? Patient has been observed closely by nursing and unit staff throughout admission; patient has not engaged in any behaviors that suggest dangerousness to self or others and has demonstrated appropriate behaviors and impulse control Discharge Date/Time: 03/11/22 10:00
[2022-03-11] MEDS: Multivitamin TABLET 1 TAB PO (09:24)
[2022-03-11] MEDS: Folic Acid 1 MG TABLET PO (09:25)
[2022-03-11] MEDS: lamoTRIgine 100 MG TABLET PO (09:25)
[2022-03-11] MEDS: Gabapentin 400 MG CAPSULE 800 MG PO (09:25)
[2022-03-11] MEDS: Thiamine HCL 100 MG TABLET PO (09:25)
[2022-03-11] MEDS: DULoxetine HCl 60 MG CAPSULE.DR PO (09:25)
[2022-03-11] MEDS: Omeprazole 40 MG CAPSULE.DR PO (09:25)
[2022-03-11] MEDS: Naloxone HCl Nasal TAKE HOME 4 MG SPRAY NOSTRILALT (10:23)
--- NOTE | 2022-03-11 10:32 | PC.NURSE ---
Patient was aware and ready for discharge. Paperwork reviewed with patient . Follow up appointment and next dose medication explained to patient. Patient verbalized understanding. Patient was accompanied with belongings to the front of the building per hospital policy.
--- NOTE | 2022-04-03 18:23 | P.EN_ITS ---
Event Note Date of Service: 04/03/22 Event Note: Patient called asking about labs, and abuse and help with medication. Patient discharged few weeks ago and is currently at a dual diagnosis program; she has an appointment next week with psychiatric provider. Precipitate Washer spoke with patient who reports she had trouble getting lab work done and will try to get it done this weekend. It she said her mood is up and down and thinks it is likely due to challenging discussions at her program as well as no longer having alcohol as above for for her emotions. Precipitate Washer agrees to increase Lamictal 150 mg and then defer to her new psychiatrist going forward. Patient feels comfortable with this.
== END 2022-03-11 10:00 | disposition home or self-care (01) | DRG 751 ==
LOC: HO.ED 15:15 → HO.PM5 03-02 14:04
PROVIDERS: Clinical Nurse Specialist Psychiatric/Mental Health, Adult; Physician Assistant; Registered Nurse; Admitting Provider Psychiatry & Neurology Psychiatry; Emergency Provider Emergency Medicine; Visit Provider Psychiatry & Neurology Psychiatry
DX: F33.1 Major depressive disorder, recurrent, moderate (principal); R45.851 Suicidal ideations; F43.12 Post-traumatic stress disorder, chronic; F14.10 Cocaine abuse, uncomplicated; M79.7 Fibromyalgia; F10.20 Alcohol dependence, uncomplicated; Y90.8 Blood alcohol level of 240 mg/100 ml or more; F17.210 Nicotine dependence, cigarettes, uncomplicated; Z71.6 Tobacco abuse counseling; Z20.822 Contact with and (suspected) exposure to COVID-19; Z79.899 Other long term (current) drug therapy
CPT/HCPCS: 36415; 80048; 80061; 80076; 80307; 81003; 81025; 82077; 82607; 82746; 83036; 83735; 84439; 84443; 85025; 87635; 92950; 93005; 99285; J3411

== ENCOUNTER 2022-04-07 09:02 | Outpatient (REF) | payer OTHER, SELFPAY ==
[2022-04-07 10:04] LABS: Alanine Aminotransferase 23 U/L (0-31); Albumin Level 4.2 g/dL (3.5-5.0); Alkaline Phosphatase 88 U/L (39-117); Aspartate Amino Transferase 23 U/L (5-31); Bilirubin Direct < 0.2 mg/dL (0.0-0.5); Bilirubin Total 0.2 mg/dL (0.0-1.0); Total Protein 6.9 g/dL (6.5-8.0)
[2022-04-07 10:26] LABS: TSH reflex Free T4 0.59 uIU/mL (0.32-4.0)
== END 2022-04-07 09:03 | disposition home or self-care (01) ==
LOC: HO.LAB 09:02
PROVIDERS: Visit Provider Psychiatry & Neurology Psychiatry
DX: Z51.81 Encounter for therapeutic drug level monitoring (principal)
CPT/HCPCS: 36415; 80076; 84443

== ENCOUNTER 2022-10-06 11:50 | Emergency (ER) | payer OTHER, SELFPAY ==
[2022-10-06 11:53] VITALS: BP 153/101; PULSE 85; RESP 18; TEMP 37.2; O2SAT 99; BMI 29.9
--- NOTE | 2022-10-06 11:53 | ED.GENADULT ---
HPI - General Adult General Chief complaint: Medical Clearance <APOLLO Houston - Last Filed: 10/06/22 11:57> Stated complaint: Medical clearance <APOLLO [place] - Last Filed: 10/06/22 11:57> Time Seen by Provider: 10/06/22 12:52 <APOLLO [place] - Last Filed: 10/06/22 11:57> History of Present Illness HPI narrative: Patient requesting medical clearance to go to a nursing home for help with alcohol dependence She has no complaint she has no recent illness or injury <APOLLO Zhou - Last Filed: 10/17/22 21:08> Related Data Home medications: Previous Rx's Medication Instructions Recorded albuterol sulfate 90 mcg/actuation 2 puff inhalation Q4H PRN 03/11/22 aerosol inhaler (ProAir HFA) Shortness Of Breath 30 days #6.7 grams aluminum-magnesium hydroxide 200 30 ml PO Q6H PRN Heartburn/Nausea 03/11/22 mg-200 mg/5 mL oral suspension #0 mL (MAG-AL) clonidine HCl 0.1 mg tablet 0.1 mg PO TID PRN Anxiety 30 days 03/11/22 #90 tabs disulfiram 250 mg tablet 250 mg PO DAILY 30 days #30 tabs 03/11/22 disulfiram 250 mg tablet See Rx Instructions .Route 03/11/22 .COMPLEX 30 days #37 tabs duloxetine 60 mg capsule,delayed 60 mg PO DAILY 30 days #30 caps 03/11/22 release fluticasone propionate 50 1 spray intranasal BID 30 days #16 03/11/22 mcg/actuation nasal grams spray,suspension folic acid 1 mg tablet 1 mg PO DAILY 30 days #30 tabs 03/11/22 gabapentin 800 mg tablet 800 mg PO TID 30 days #90 tabs 03/11/22 hydroxyzine HCl 50 mg tablet 50 mg PO TID PRN Anxiety 30 days 03/11/22 #60 tabs lamotrigine 100 mg tablet 100 mg PO DAILY 30 days #30 tabs 03/11/22 magnesium hydroxide 400 mg/5 mL 30 ml PO DAILY PRN Constipation #0 03/11/22 oral suspension (Milk of Magnesia) mL melatonin 3 mg tablet 9 mg PO BEDTIME PRN insomnia 30 07/27/22 days #90 tabs omeprazole 40 mg capsule,delayed 40 mg PO DAILY 30 days #30 caps 03/11/22 release polyethylene glycol 3350 17 gram 17 g PO BID PRN constipation 03/11/22 oral powder packet days #60 ea thiamine HCl (vitamin B1) 100 mg 100 mg PO DAILY 30 days #30 tabs 03/11/22 tablet trazodone 100 mg tablet 100 mg PO BEDTIME PRN insomnia 30 03/11/22 days #30 tabs lamotrigine 150 mg tablet 150 mg PO DAILY 30 days #30 tabs 04/03/22 <APOLLO [place] - Last Filed: 10/06/22 11:57> Allergies/adverse reactions: Allergies Allergy/AdvReac Type Severity Reaction Status Date / Time No Known Allergies Allergy Verified 09/30/22 12:42 <APOLLO [place] - Last Filed: 10/06/22 11:57> FORMERLY [facility] Past Medical History Source: nursing notes reviewed <APOLLO Zhou - Last Filed: 10/17/22 21:08> Medical History: Medical History Alcohol abuse Alcohol dependence Chronic post-traumatic stress disorder (PTSD) Cocaine abuse Depression Fibromyalgia <APOLLO [place] - Last Filed: 10/06/22 11:57> Social History Social History: Social History Household Members: Friend(s) Household Members Other:: yes. Housing: Homeless Housing Other:: Friend's trailer Do you presently have visiting nurse or other home services: No Alcohol intake: current Alcohol intake frequency: 3 or more drinks per day Alcohol type: hard liquor Patient Tobacco Use Status: Current everyday Tobacco user Tobacco use type: Cigarette Cigarette Packs Per Day: 1.5 Cigarettes Per Day: 30.0 Years Smoked: 29 e-Cigarette/Vaping Use: Never Used Second Hand Smoke Exposure: Yes Substance Use Type: Crack/Cocaine and Marijuana Advance Directives: No Advance Directives Information Provided: No service: No Sexual orientation: Did not discuss <APOLLO Houston - Last Filed: 10/06/22 11:57> Physical Exam ED Vital Signs: Vital Signs - 24 hr 10/06/22 11:53 Temperature 98.9 F Pulse Rate 85 Respiratory Rate 18 Blood Pressure 153/101 H Pulse Oximetry 99 Oxygen Delivery Method Room Air BMI result Body Mass Index 29.9 <APOLLO [place] - Last Filed: 10/06/22 11:57> Vital Signs - 24 hr 10/06/22 11:53 Temperature 98.9 F Pulse Rate 85 Respiratory Rate 18 Blood Pressure 153/101 H Pulse Oximetry 99 Oxygen Delivery Method Room Air BMI result Body Mass Index 29.9 <APOLLO Zhou - Last Filed: 10/17/22 21:08> General appearance no acute distress Head normocephalic atraumatic Neck is supple Chest clear to auscultation bilateral Heart no murmur Abdomen soft nontender Extremities front of motion x4 Neuro no focal motor sensory deficits <APOLLO Zhou - Last Filed: 10/17/22 21:08> Course Course Course Narrative: RME-- 42yo F w/PMHx ETOH abuse, PTSD, depression, fibromyalgia, presenting to the ED seeking medical clearance for residential program. Patient denies current EtOH or substance abuse. Denies SI/HI or auditory/visual hallucinations Labs, IVAN, ethanol, COVID/influenza ordered <APOLLO Houston - Last Filed: 10/06/22 11:57> RME-- 42yo F w/PMHx ETOH abuse, PTSD, depression, fibromyalgia, presenting to the ED seeking medical clearance for residential program. Patient denies current EtOH or substance abuse. Denies SI/HI or auditory/visual hallucinations Labs, IVAN, ethanol, COVID/influenza ordered Patient was well-appearing with no acute lab abnormalities and was cleared to go to her nursing home <APOLLO Zhou - Last Filed: 10/17/22 21:08> Medical Decision Making Lab Data Result Diagrams: 10/06/22 12:09 10/06/22 12:09 <APOLLO Houston - Last Filed: 10/06/22 11:57> Labs: Lab Results 10/06/22 10/06/22 10/06/22 Range/Units 12:09 12:09 12:09 WBC 8.5 (4.8-10.8) X10*3/uL RBC 4.40 (4.20-5.50) X10*6/uL Hgb 12.5 (12.0-16.0) g/dl Hct 39.1 (37.0-47.0) % MCV 88.9 (80.0-98.0) fL MCH 28.4 (27.0-33.0) pg MCHC 32.0 (31.0-35.0) g/dl RDW 15.9 (11.0-16.0) % Plt Count 250 (160-400) X10*3/uL MPV 9.9 (9.4-12.3) fL Immature Gran % (Auto) 0.5 H (0.0-0.4) % Neut % (Auto) 70.7 (45-73) % Lymph % (Auto) 21.1 (20-40) % [place] % (Auto) 6.3 (2-11) % Eos % (Auto) 0.9 (0-4) % Baso % (Auto) 0.5 (0-2) % Lymph # (Auto) 1.8 (1.2-4.9) X10*3/uL [place] # (Auto) 0.5 (0.1-1.2) X10*3/uL Eos # (Auto) 0.1 (0.0-0.4) X10*3/uL Baso # (Auto) 0.0 (0.0-0.2) X10*3/uL Abs Immat Gran (auto) 0.04 H (0.00-0.03) X10*3/uL Absolute Neuts (auto) 6.0 (2.0-8.3) x10*3/uL Absolute Nucleated RBC 0.000 (0.0-0.012) X10*3/uL Nucleated RBC % (auto) 0.0 (0.0-0.2) /100WBC Sodium 134 L (135-145) mmol/L Potassium 4.4 D (3.3-5.1) mmol/L Chloride 101 (96-108) mmol/L Carbon Dioxide 26 (22-29) mmol/L Anion Gap 11 L (12-20) BUN 8 L (9-16) mg/dL Creatinine 0.78 (0.5-1.4) mg/dL Estim Creat Clear Calc 80.8 Estimated GFR > 60 Random Glucose 95 (60-115) mg/dL Calcium 9.1 D (8.4-10.2) mg/dL Total Bilirubin 0.2 (0.0-1.0) mg/dL Direct Bilirubin < 0.2 (0.0-0.5) mg/dL AST 21 (5-31) U/L ALT 15 (0-31) U/L Alkaline Phosphatase 86 (39-117) U/L Total Protein 6.8 (6.5-8.0) g/dL Albumin 4.2 (3.5-5.0) g/dL Urine Opiates Screen (Not Detect) Urine Fentanyl Screen (Not Detect) Ur Barbiturates Screen (Not Detect) Ur Phencyclidine Scrn (Not Detect) Ur Amphetamines Screen (Not Detect) U Benzodiazepines Scrn (Not Detect) Urine Cocaine Screen (Not Detect) U Marijuana (THC) Screen (Not Detect) Ethyl Alcohol < 10 mg/dL COVID-19 ([facility]) (Negative) COVID-19 Clin Com Influenza Type A (FLORIDALMA) Negative (Negative) Influenza Type B (FLORIDALMA) Negative (Negative) Influenza A & B Note See Note 10/06/22 10/06/22 Range/Units 12:09 12:09 WBC (4.8-10.8) X10*3/uL RBC (4.20-5.50) X10*6/uL Hgb (12.0-16.0) g/dl Hct (37.0-47.0) % MCV (80.0-98.0) fL MCH (27.0-33.0) pg MCHC (31.0-35.0) g/dl RDW (11.0-16.0) % Plt Count (160-400) X10*3/uL MPV (9.4-12.3) fL Immature Gran % (Auto) (0.0-0.4) % Neut % (Auto) (45-73) % Lymph % (Auto) (20-40) % [place] % (Auto) (2-11) % Eos % (Auto) (0-4) % Baso % (Auto) (0-2) % Lymph # (Auto) (1.2-4.9) X10*3/uL [place] # (Auto) (0.1-1.2) X10*3/uL Eos # (Auto) (0.0-0.4) X10*3/uL Baso # (Auto) (0.0-0.2) X10*3/uL Abs Immat Gran (auto) (0.00-0.03) X10*3/uL Absolute Neuts (auto) (2.0-8.3) x10*3/uL Absolute Nucleated RBC (0.0-0.012) X10*3/uL Nucleated RBC % (auto) (0.0-0.2) /100WBC Sodium (135-145) mmol/L Potassium (3.3-5.1) mmol/L Chloride (96-108) mmol/L Carbon Dioxide (22-29) mmol/L Anion Gap (12-20) BUN (9-16) mg/dL Creatinine (0.5-1.4) mg/dL Estim Creat Clear Calc Estimated GFR Random Glucose (60-115) mg/dL Calcium (8.4-10.2) mg/dL Total Bilirubin (0.0-1.0) mg/dL Direct Bilirubin (0.0-0.5) mg/dL AST (5-31) U/L ALT (0-31) U/L Alkaline Phosphatase (39-117) U/L Total Protein (6.5-8.0) g/dL Albumin (3.5-5.0) g/dL Urine Opiates Screen Not Detected (Not Detect) Urine Fentanyl Screen Not Detected (Not Detect) Ur Barbiturates Screen Not Detected (Not Detect) Ur Phencyclidine Scrn Not Detected (Not Detect) Ur Amphetamines Screen Not Detected (Not Detect) U Benzodiazepines Scrn Not Detected (Not Detect) Urine Cocaine Screen Not Detected (Not Detect) U Marijuana (THC) Screen Not Detected (Not Detect) Ethyl Alcohol mg/dL COVID-19 ([facility]) Negative (Negative) COVID-19 Clin Com See Note Influenza Type A (FLORIDALMA) (Negative) Influenza Type B (FLORIDALMA) (Negative) Influenza A & B Note <APOLLO Houston - Last Filed: 10/06/22 11:57> Lab Results 10/06/22 10/06/22 10/06/22 Range/Units 12:09 12:09 12:09 WBC 8.5 (4.8-10.8) X10*3/uL RBC 4.40 (4.20-5.50) X10*6/uL Hgb 12.5 (12.0-16.0) g/dl Hct 39.1 (37.0-47.0) % MCV 88.9 (80.0-98.0) fL MCH 28.4 (27.0-33.0) pg MCHC 32.0 (31.0-35.0) g/dl RDW 15.9 (11.0-16.0) % Plt Count 250 (160-400) X10*3/uL MPV 9.9 (9.4-12.3) fL Immature Gran % (Auto) 0.5 H (0.0-0.4) % Neut % (Auto) 70.7 (45-73) % Lymph % (Auto) 21.1 (20-40) % [place] % (Auto) 6.3 (2-11) % Eos % (Auto) 0.9 (0-4) % Baso % (Auto) 0.5 (0-2) % Lymph # (Auto) 1.8 (1.2-4.9) X10*3/uL [place] # (Auto) 0.5 (0.1-1.2) X10*3/uL Eos # (Auto) 0.1 (0.0-0.4) X10*3/uL Baso # (Auto) 0.0 (0.0-0.2) X10*3/uL Abs Immat Gran (auto) 0.04 H (0.00-0.03) X10*3/uL Absolute Neuts (auto) 6.0 (2.0-8.3) x10*3/uL Absolute Nucleated RBC 0.000 (0.0-0.012) X10*3/uL Nucleated RBC % (auto) 0.0 (0.0-0.2) /100WBC Sodium 134 L (135-145) mmol/L Potassium 4.4 D (3.3-5.1) mmol/L Chloride 101 (96-108) mmol/L Carbon Dioxide 26 (22-29) mmol/L Anion Gap 11 L (12-20) BUN 8 L (9-16) mg/dL Creatinine 0.78 (0.5-1.4) mg/dL Estim Creat Clear Calc 80.8 Estimated GFR > 60 Random Glucose 95 (60-115) mg/dL Calcium 9.1 D (8.4-10.2) mg/dL Total Bilirubin 0.2 (0.0-1.0) mg/dL Direct Bilirubin < 0.2 (0.0-0.5) mg/dL AST 21 (5-31) U/L ALT 15 (0-31) U/L Alkaline Phosphatase 86 (39-117) U/L Total Protein 6.8 (6.5-8.0) g/dL Albumin 4.2 (3.5-5.0) g/dL Urine Opiates Screen (Not Detect) Urine Fentanyl Screen (Not Detect) Ur Barbiturates Screen (Not Detect) Ur Phencyclidine Scrn (Not Detect) Ur Amphetamines Screen (Not Detect) U Benzodiazepines Scrn (Not Detect) Urine Cocaine Screen (Not Detect) U Marijuana (THC) Screen (Not Detect) Ethyl Alcohol < 10 mg/dL COVID-19 ([facility]) (Negative) COVID-19 Clin Com Influenza Type A (FLORIDALMA) Negative (Negative) Influenza Type B (FLORIDALMA) Negative (Negative) Influenza A & B Note See Note 10/06/22 10/06/22 Range/Units 12:09 12:09 WBC (4.8-10.8) X10*3/uL RBC (4.20-5.50) X10*6/uL Hgb (12.0-16.0) g/dl Hct (37.0-47.0) % MCV (80.0-98.0) fL MCH (27.0-33.0) pg MCHC (31.0-35.0) g/dl RDW (11.0-16.0) % Plt Count (160-400) X10*3/uL MPV (9.4-12.3) fL Immature Gran % (Auto) (0.0-0.4) % Neut % (Auto) (45-73) % Lymph % (Auto) (20-40) % [place] % (Auto) (2-11) % Eos % (Auto) (0-4) % Baso % (Auto) (0-2) % Lymph # (Auto) (1.2-4.9) X10*3/uL [place] # (Auto) (0.1-1.2) X10*3/uL Eos # (Auto) (0.0-0.4) X10*3/uL Baso # (Auto) (0.0-0.2) X10*3/uL Abs Immat Gran (auto) (0.00-0.03) X10*3/uL Absolute Neuts (auto) (2.0-8.3) x10*3/uL Absolute Nucleated RBC (0.0-0.012) X10*3/uL Nucleated RBC % (auto) (0.0-0.2) /100WBC Sodium (135-145) mmol/L Potassium (3.3-5.1) mmol/L Chloride (96-108) mmol/L Carbon Dioxide (22-29) mmol/L Anion Gap (12-20) BUN (9-16) mg/dL Creatinine (0.5-1.4) mg/dL Estim Creat Clear Calc Estimated GFR Random Glucose (60-115) mg/dL Calcium (8.4-10.2) mg/dL Total Bilirubin (0.0-1.0) mg/dL Direct Bilirubin (0.0-0.5) mg/dL AST (5-31) U/L ALT (0-31) U/L Alkaline Phosphatase (39-117) U/L Total Protein (6.5-8.0) g/dL Albumin (3.5-5.0) g/dL Urine Opiates Screen Not Detected (Not Detect) Urine Fentanyl Screen Not Detected (Not Detect) Ur Barbiturates Screen Not Detected (Not Detect) Ur Phencyclidine Scrn Not Detected (Not Detect) Ur Amphetamines Screen Not Detected (Not Detect) U Benzodiazepines Scrn Not Detected (Not Detect) Urine Cocaine Screen Not Detected (Not Detect) U Marijuana (THC) Screen Not Detected (Not Detect) Ethyl Alcohol mg/dL COVID-19 ([facility]) Negative (Negative) COVID-19 Clin Com See Note Influenza Type A (FLORIDALMA) (Negative) Influenza Type B (FLORIDALMA) (Negative) Influenza A & B Note <APOLLO Zhou - Last Filed: 10/17/22 21:08> Discharge Plan Discharge Clinical Impression: Normal exam <APOLLO Houston - Last Filed: 02/21/23 11:57> Patient Disposition: Home, Self-Care <APOLLO [place] - Last Filed: 10/06/22 11:57> Additional Instructions: Your fully cleared to go to the nursing home There is no illness or injury and your very well-appearing now Physical exam was normal Chemistry and CBC were normal, liver function and kidney function were normal COVID test was negative Fully cleared for all activities <APOLLO [place] - Last Filed: 10/06/22 11:57> Prescriptions: No Action duloxetine 60 mg Capsule,Delayed Release(Dr/Ec) 60 mg PO DAILY 30 Days Qty: 30 1RF gabapentin 800 mg tablet 800 mg PO TID 30 Days Qty: 90 1RF fluticasone propionate 50 mcg/actuation [place],Suspension 1 spray intranasal BID 30 Days Qty: 16 1RF polyethylene glycol 3350 17 gram Powder In Packet 17 g PO BID PRN (Reason: constipation) 30 Days Qty: 60 1RF magnesium hydroxide [Milk of Magnesia] 400 mg/5 mL Suspension 30 ml PO DAILY PRN (Reason: Constipation) Qty: 0 0RF MAG-AL 200-200 mg/5 mL Suspension 30 ml PO Q6H PRN (Reason: Heartburn/Nausea) Qty: 0 0RF disulfiram 250 mg Tablet See Rx Instructions .ROUTE .COMPLEX 30 Days Qty: 37 0RF Rx Instructions: take 2 tabs daily for 7 days; then take 1 tab daily clonidine HCl 0.1 mg tablet 0.1 mg PO TID PRN (Reason: Anxiety) 30 Days Qty: 90 1RF thiamine HCl (vitamin B1) 100 mg Tablet 100 mg PO DAILY 30 Days Qty: 30 0RF hydroxyzine HCl 50 mg tablet 50 mg PO TID PRN (Reason: Anxiety) 30 Days Qty: 60 1RF melatonin 3 mg tablet 9 mg PO BEDTIME PRN (Reason: insomnia) 30 Days Qty: 90 1RF omeprazole 40 mg Capsule,Delayed Release(Dr/Ec) 40 mg PO DAILY 30 Days Qty: 30 1RF trazodone 100 mg tablet 100 mg PO BEDTIME PRN (Reason: insomnia) 30 Days Qty: 30 1RF folic acid 1 mg Tablet 1 mg PO DAILY 30 Days Qty: 30 0RF albuterol sulfate [ProAir HFA] 90 mcg/actuation Hfa Aerosol Inhaler 2 puff INHALATION Q4H PRN (Reason: Shortness Of Breath) 30 Days Qty: 6.7 1RF lamotrigine 100 mg tablet 100 mg PO DAILY 30 Days Qty: 30 1RF disulfiram 250 mg tablet 250 mg PO DAILY 30 Days Qty: 30 0RF lamotrigine 150 mg tablet 150 mg PO DAILY 30 Days Qty: 30 0RF <APOLLO [place] - Last Filed: 10/06/22 11:57> Interventions: ED Discharge Assessment Last Done: 10/06/22 14:08 <APOLLO [place] - Last Filed: 10/06/22 11:57> Discharge Date/Time: 10/06/22 14:08 <APOLLO [place] - Last Filed: 10/06/22 11:57>
[2022-10-06 12:16] LABS: MANUAL DIFF FLAG NO
[2022-10-06 12:30] LABS: Basophils Percent Auto 0.5 % (0-2); Eosinophils Absolute Auto 0.1 X10*3/uL (0.0-0.4); Eosinophils Percent Auto 0.9 % (0-4); Hematocrit 39.1 % (37.0-47.0); Hemoglobin 12.5 g/dl (12.0-16.0); Imm Gran Abs Auto 0.04 X10*3/uL (0.00-0.03); Imm Gran Pct Auto 0.5 % (0.0-0.4); Lymphocytes Absolute Auto 1.8 X10*3/uL (1.2-4.9); Lymphocytes Percent Auto 21.1 % (20-40); Mean Corpuscular Hemoglobin 28.4 pg (27.0-33.0); Mean Corpuscular Volume 88.9 fL (80.0-98.0); Mean Platelet Volume 9.9 fL (9.4-12.3); Monocytes Absolute Auto 0.5 X10*3/uL (0.1-1.2); Monocytes Percent Auto 6.3 % (2-11); Neutrophils Percent Auto 70.7 % (45-73); Platelet Count 250 X10*3/uL (160-400); Red Cell Distribution Width 15.9 % (11.0-16.0); White Blood Count 8.5 X10*3/uL (4.8-10.8)
[2022-10-06 12:36] LABS: Amphetamine Screen Urine Not Detected (Not Detect); Barbiturates, Urine Not Detected (Not Detect); Benzodiazepines Screen Urine Not Detected (Not Detect); COVID-19 Test Negative (Negative); Cannabinoid Screen Urine Not Detected (Not Detect); Cocaine Screen Urine Not Detected (Not Detect); Fentanyl, urine Not Detected (Not Detect); IDNOW Serial# 16C4AD1C; Opiate Screen Urine Not Detected (Not Detect); Phencyclidine Screen Urine Not Detected (Not Detect)
[2022-10-06 12:45] LABS: IDNOW Serial# 55D5AD1C; Influenza A Negative (Negative); Influenza B2 Negative (Negative)
[2022-10-06 12:46] LABS: Alanine Aminotransferase 15 U/L (0-31); Albumin Level 4.2 g/dL (3.5-5.0); Alkaline Phosphatase 86 U/L (39-117); Anion Gap 11 (12-20); Aspartate Amino Transferase 21 U/L (5-31); Bilirubin Direct < 0.2 mg/dL (0.0-0.5); Bilirubin Total 0.2 mg/dL (0.0-1.0); Blood Urea Nitrogen 8 mg/dL (9-16); Calcium 9.1 mg/dL (8.4-10.2); Carbon Dioxide 26 mmol/L (22-29); Chloride 101 mmol/L (96-108); Creatinine Clr Calc Pharmacy 80.8; Estimated Glomerular Filt Rate > 60; Ethanol < 10 mg/dL; Glucose Random 95 mg/dL (60-115); Potassium 4.4 mmol/L (3.3-5.1); Sodium 134 mmol/L (135-145); Total Protein 6.8 g/dL (6.5-8.0)
== END 2022-10-06 14:08 | disposition home or self-care (01) ==
PROVIDERS: Physician Assistant; Emergency Provider Emergency Medicine; PCP Hospitalist
DX: Z02.83 Encounter for blood-alcohol and blood-drug test (principal); F10.20 Alcohol dependence, uncomplicated; Y90.0 Blood alcohol level of less than 20 mg/100 ml; Z20.822 Contact with and (suspected) exposure to COVID-19; F17.210 Nicotine dependence, cigarettes, uncomplicated; Z79.899 Other long term (current) drug therapy
CPT/HCPCS: 80048; 80076; 80307; 82077; 85025; 87502; 87635; 99282; 99283

== ENCOUNTER 2022-11-05 22:07 | Emergency (ER) | payer OTHER, SELFPAY ==
--- NOTE | 2022-11-05 | ECG_ITS ---
Test Reason : SYNCOPE Blood Pressure : / mmHG Vent. Rate : 075 BPM Atrial Rate : 075 BPM P-R Int : 190 ms QRS Dur : 096 ms QT Int : 388 ms P-R-T Axes : 050 003 025 degrees QTc Int : 433 ms Normal sinus rhythm Normal ECG When compared with ECG of 02-MAR-2022 11:19, Criteria for Septal infarct are no longer Present Referred By: Generic ED Physician Electronically Signed By:BIJAN PALACIO MD
--- NOTE | ~2022-11-05 | CT_ITS ---
EXAMINATION: CT HEAD WITHOUT CONTRAST CT CERVICAL SPINE WITHOUT CONTRAST CLINICAL INFORMATION: Fall. COMPARISON: Brain MRI from 07/31/2018. TECHNIQUE: Contiguous axial imaging was performed from the skull base to vertex without intravenous administration of contrast. Contiguous axial imaging was performed from the upper chest through the skull base without intravenous administration of contrast. Coronal and sagittal reformats were obtained at the acquisition workstation. This CT examination was performed using dose optimization techniques as appropriate, variously including the following: *Automated exposure control. *Adjustment of mA and/or kV according to patient size (this includes techniques or standardized protocols for targeted exams where dose is matched to indication/reason for exam; i.e. extremities or head). *Use of iterative reconstruction technique. DLP: 797 mGy-cm FINDINGS: Head: There is no evidence of acute intracranial hemorrhage or edematous territorial infarction. Pham-white matter differentiation is preserved. There is no abnormal attenuation within the brain parenchyma. The ventricles are normal in morphology and size. No evidence for obstructive hydrocephalus. No abnormal mass effect or midline shift. No extra-axial fluid collections. No acute soft tissue or osseous abnormalities. Mild mucosal thickening of the paranasal sinuses. The mastoid air cells and middle ear cavities are clear. Cervical Spine: The atlantooccipital articulations remain well aligned. Rotary subluxation of C1 on C2 without demonstrated associated fracture (this is most commonly positional in nature). Straightening of the normal cervical lordosis. Otherwise, there is anatomic alignment of the vertebral bodies and posterior elements. No evidence of acute fracture or subluxation. The vertebral body heights are maintained. Moderate degenerative disc disease at C5-C6. Facet and uncovertebral joint arthropathy leads to osseous encroachment on the neural foramina at C5-C6. There is no prevertebral soft tissue swelling. The thyroid gland and remaining cervical soft tissues are normal in appearance. The lung apices demonstrate no abnormalities. CT/CT cervical spine wo IV con IMPRESSION: 1. No evidence of acute intracranial hemorrhage or edematous territorial infarction. 2. No evidence of acute fracture or traumatic subluxation of the cervical spine. Mild degenerative spondyloarthropathy of the cervical spine.
[2022-11-05 22:27] VITALS: BP 129/91; BP 137/88; PULSE 78; PULSE 79; RESP 18; TEMP 36.6; O2SAT 99; BMI 29.4
[2022-11-05 22:46] LABS: MANUAL DIFF FLAG NO
[2022-11-05 22:49] LABS: Basophils Percent Auto 0.6 % (0-2); Eosinophils Absolute Auto 0.2 X10*3/uL (0.0-0.4); Eosinophils Percent Auto 2.2 % (0-4); Hematocrit 35.1 % (37.0-47.0); Hemoglobin 11.4 g/dl (12.0-16.0); Imm Gran Abs Auto 0.02 X10*3/uL (0.00-0.03); Imm Gran Pct Auto 0.3 % (0.0-0.4); Lymphocytes Absolute Auto 2.2 X10*3/uL (1.2-4.9); Lymphocytes Percent Auto 30.6 % (20-40); Mean Corpuscular HGB Conc 32.5 g/dl (31.0-35.0); Mean Corpuscular Volume 89.3 fL (80.0-98.0); Mean Platelet Volume 9.7 fL (9.4-12.3); Monocytes Absolute Auto 0.7 X10*3/uL (0.1-1.2); Neutrophils Absolute Auto 4.2 x10*3/uL (2.0-8.3); Neutrophils Percent Auto 57.3 % (45-73); Platelet Count 188 X10*3/uL (160-400); Red Blood Count 3.93 X10*6/uL (4.20-5.50); Red Cell Distribution Width 16.5 % (11.0-16.0); White Blood Count 7.3 X10*3/uL (4.8-10.8)
--- NOTE | 2022-11-05 22:49 | PC.NURSE ---
Pt reported to PCT she was at AA today and had trouble finding her words- previously reports forgetfulness and difficulty finding words intermittent for months, pt with previous ETOH and cocaine use, denies at this time. Neuros intact. Awaiting primary provider poojaal.
[2022-11-05 23:06] LABS: Alanine Aminotransferase 13 U/L (0-31); Alkaline Phosphatase 72 U/L (39-117); Anion Gap 12 (12-20); Aspartate Amino Transferase 18 U/L (5-31); Bilirubin Total 0.2 mg/dL (0.0-1.0); Blood Urea Nitrogen 8 mg/dL (9-16); Calcium 8.6 mg/dL (8.4-10.2); Carbon Dioxide 26 mmol/L (22-29); Chloride 104 mmol/L (96-108); Creatinine Clr Calc Pharmacy 78.5; Estimated Glomerular Filt Rate > 60; Glucose Random 102 mg/dL (60-115); Potassium 3.7 mmol/L (3.3-5.1); Sodium 138 mmol/L (135-145)
[2022-11-05 23:22] LABS: Ethanol < 10 mg/dL
[2022-11-05 23:28] VITALS: BP 137/88; PULSE 77; RESP 17; TEMP 36.4; O2SAT 99
--- NOTE | 2022-11-05 23:34 | ED.GENADULT ---
HPI - General Adult General Chief complaint: General Medical Stated complaint: mutiple falls confusion Time Seen by Provider: 11/05/22 23:18 Source: patient Mode of arrival: EMS Limitations: no limitations History of Present Illness HPI narrative: Patient history of alcohol abuse comes here for frequent falls and headache for last few months with intermittent episodes of forgetfulness and confusion reports 2 falls today 1 slip down stairs no loss of consciousness no head strike and 2nd she fell in bathroom. Does not know what happened and she falls no loss of consciousness no chest pain upper in the ER patient was ambulating without unsteadiness patient denies any substance abuse or alcohol last drink was a month ago Related Data Previous Rx's Medication Instructions Recorded albuterol sulfate 90 mcg/actuation 2 puff inhalation Q4H PRN 03/11/22 aerosol inhaler (ProAir HFA) Shortness Of Breath 30 days #6.7 grams aluminum-magnesium hydroxide 200 30 ml PO Q6H PRN Heartburn/Nausea 03/11/22 mg-200 mg/5 mL oral suspension #0 mL (MAG-AL) clonidine HCl 0.1 mg tablet 0.1 mg PO TID PRN Anxiety 30 days 03/11/22 #90 tabs disulfiram 250 mg tablet 250 mg PO DAILY 30 days #30 tabs 03/11/22 disulfiram 250 mg tablet See Rx Instructions .Route 03/11/22 .COMPLEX 30 days #37 tabs duloxetine 60 mg capsule,delayed 60 mg PO DAILY 30 days #30 caps 03/11/22 release fluticasone propionate 50 1 spray intranasal BID 30 days #16 03/11/22 mcg/actuation nasal grams spray,suspension folic acid 1 mg tablet 1 mg PO DAILY 30 days #30 tabs 03/11/22 gabapentin 800 mg tablet 800 mg PO TID 30 days #90 tabs 03/11/22 hydroxyzine HCl 50 mg tablet 50 mg PO TID PRN Anxiety 30 days 03/11/22 #60 tabs lamotrigine 100 mg tablet 100 mg PO DAILY 30 days #30 tabs 03/11/22 magnesium hydroxide 400 mg/5 mL 30 ml PO DAILY PRN Constipation #0 03/11/22 oral suspension (Milk of Magnesia) mL melatonin 3 mg tablet 9 mg PO BEDTIME PRN insomnia 30 03/11/22 days #90 tabs omeprazole 40 mg capsule,delayed 40 mg PO DAILY 30 days #30 caps 03/11/22 release polyethylene glycol 3350 17 gram 17 g PO BID PRN constipation 30 03/11/22 oral powder packet days #60 ea thiamine HCl (vitamin B1) 100 mg 100 mg PO DAILY 30 days #30 tabs 03/11/22 tablet trazodone 100 mg tablet 100 mg PO BEDTIME PRN insomnia 30 03/11/22 days #30 tabs lamotrigine 150 mg tablet 150 mg PO DAILY 30 days #30 tabs 04/03/22 Allergies Allergy/AdvReac Type Severity Reaction Status Date / Time No Known Allergies Allergy Verified 09/30/22 12:42 Review of Systems Review of Systems: Yes all other systems are reviewed and are negative PMFSH Past Medical History Medical History Alcohol abuse Alcohol dependence Chronic post-traumatic stress disorder (PTSD) Cocaine abuse Depression Fibromyalgia Social History Social History Household Members: Friend(s) Household Members Other:: yes. Housing: Homeless Housing Other:: Friend's trailer Do you presently have visiting nurse or other home services: No Alcohol intake: current Alcohol intake frequency: other Alcohol type: hard liquor Patient Tobacco Use Status: Current everyday Tobacco user Tobacco use type: Cigarette Cigarette Packs Per Day: 1.5 Cigarettes Per Day: 30.0 Years Smoked: 29 Smoked in Last 30 Days: Yes e-Cigarette/Vaping Use: Never Used Second Hand Smoke Exposure: Yes Use of substances other than those prescribed or required for medical reasons: No Substance Use Type: Crack/Cocaine and Marijuana Substance Use Type Other:: history of cocaine use denies today Advance Directives: No Advance Directives Information Provided: No Patient : No service: No Sexual orientation: Did not discuss Physical Exam ED Vital Signs: Vital Signs - 24 hr 11/05/22 22:27 11/05/22 23:28 11/06/22 02:00 Temperature 97.9 F 97.6 F Pulse Rate 79 77 88 Respiratory Rate 18 17 14 Blood Pressure 137/88 137/88 119/72 Pulse Oximetry 99 99 94 Oxygen Delivery Method Room Air Room Air Room Air BMI result Body Mass Index 29.4 Appearance: Alert. Oriented X3. No acute distress. Eyes: PERRLA, no pallor or icterus ENT: Pharynx normal. Oral Mucosa moist Neck: Normal inspection. Neck supple. CVS: Normal heart rate and rhythm. Pulses normal. Respiratory: No respiratory distress. Equal air entry bilateral, no wheezing/rales/rhonchi Abdomen: Soft and nontender. Bowel sounds are present, no mass palpable, no CVA tenderness Skin: Skin warm and dry. Normal skin color. Normal skin turgor. Extremities: No lower extremity edema. No calf tenderness Neuro: Oriented X 3. No motor deficit. No sensory deficit.No cerebellar signs , cranial nerves II-XII intact Medical Decision Making Medical Decision Making [facility] Narrative: Patient with mechanical falls etiology not very clear likely medication as she is on multiple medications which can cause sleepiness. Patient denies any overdosing her medications. CT scan labs normal will discharge patient home advised not to mix sleeping medication altogether. In the ER patient able ambulate in steady gait Differential Diagnosis Alcoholic neuropathy/metabolic encephalopathy/medication use/substance abuse Lab Data [facility] Lab Attestation statement: I reviewed the patient's lab results. 11/05/22 22:41 11/05/22 22:41 Labs: Lab Results 11/05/22 11/05/22 Range/Units 22:41 22:41 WBC 7.3 (4.8-10.8) X10*3/uL RBC 3.93 L (4.20-5.50) X10*6/uL Hgb 11.4 L (12.0-16.0) g/dl Hct 35.1 L (37.0-47.0) % MCV 89.3 (80.0-98.0) fL MCH 29.0 (27.0-33.0) pg MCHC 32.5 (31.0-35.0) g/dl RDW 16.5 H (11.0-16.0) % Plt Count 188 (160-400) X10*3/uL MPV 9.7 (9.4-12.3) fL Immature Gran % (Auto) 0.3 (0.0-0.4) % Neut % (Auto) 57.3 (45-73) % Lymph % (Auto) 30.6 (20-40) % [place] % (Auto) 9.0 (2-11) % Eos % (Auto) 2.2 (0-4) % Baso % (Auto) 0.6 (0-2) % Lymph # (Auto) 2.2 (1.2-4.9) X10*3/uL [place] # (Auto) 0.7 (0.1-1.2) X10*3/uL Eos # (Auto) 0.2 (0.0-0.4) X10*3/uL Baso # (Auto) 0.0 (0.0-0.2) X10*3/uL Abs Immat Gran (auto) 0.02 (0.00-0.03) X10*3/uL Absolute Neuts (auto) 4.2 (2.0-8.3) x10*3/uL Absolute Nucleated RBC 0.000 (0.0-0.012) X10*3/uL Nucleated RBC % (auto) 0.0 (0.0-0.2) /100WBC Sodium 138 (135-145) mmol/L Potassium 3.7 (3.3-5.1) mmol/L Chloride 104 (96-108) mmol/L Carbon Dioxide 26 (22-29) mmol/L Anion Gap 12 (12-20) BUN 8 L (9-16) mg/dL Creatinine 0.83 (0.5-1.4) mg/dL Estim Creat Clear Calc 78.5 Estimated GFR > 60 Random Glucose 102 (60-115) mg/dL Calcium 8.6 (8.4-10.2) mg/dL Magnesium 2.0 (1.6-2.6) mg/dL Total Bilirubin 0.2 (0.0-1.0) mg/dL AST 18 (5-31) U/L ALT 13 (0-31) U/L Alkaline Phosphatase 72 (39-117) U/L Total Protein 6.0 L (6.5-8.0) g/dL Albumin 4.0 (3.5-5.0) g/dL Vitamin B12 839 (200-900) pg/mL Folate > 20.0 (> or = 4.0) ng/mL Ethyl Alcohol < 10 mg/dL Independent Interpretation I performed an independent interpretation of an: EKG Interpretation: Normal sinus rhythm heart rate 75 beats per minute normal intervals normal axis no acute ST-T change impression normal EKG Discharge Plan Discharge Clinical Impression: Frequent falls Patient Disposition: Home, Self-Care Instructions: Fall Prevention (ED) Additional Instructions: Care and cautions as advised Will not overdose with medications Likely medication as a cause for your falls Prescriptions: No Action duloxetine 60 mg Capsule,Delayed Release(Dr/Ec) 60 mg PO DAILY 30 Days Qty: 30 1RF gabapentin 800 mg tablet 800 mg PO TID 30 Days Qty: 90 1RF fluticasone propionate 50 mcg/actuation [place],Suspension 1 spray intranasal BID 30 Days Qty: 16 1RF polyethylene glycol 3350 17 gram Powder In Packet 17 g PO BID PRN (Reason: constipation) 30 Days Qty: 60 1RF magnesium hydroxide [Milk of Magnesia] 400 mg/5 mL Suspension 30 ml PO DAILY PRN (Reason: Constipation) Qty: 0 0RF MAG-AL 200-200 mg/5 mL Suspension 30 ml PO Q6H PRN (Reason: Heartburn/Nausea) Qty: 0 0RF disulfiram 250 mg Tablet See Rx Instructions .ROUTE .COMPLEX 30 Days Qty: 37 0RF Rx Instructions: take 2 tabs daily for 7 days; then take 1 tab daily clonidine HCl 0.1 mg tablet 0.1 mg PO TID PRN (Reason: Anxiety) 30 Days Qty: 90 1RF thiamine HCl (vitamin B1) 100 mg Tablet 100 mg PO DAILY 30 Days Qty: 30 0RF hydroxyzine HCl 50 mg tablet 50 mg PO TID PRN (Reason: Anxiety) 30 Days Qty: 60 1RF melatonin 3 mg tablet 9 mg PO BEDTIME PRN (Reason: insomnia) 30 Days Qty: 90 1RF omeprazole 40 mg Capsule,Delayed Release(Dr/Ec) 40 mg PO DAILY 30 Days Qty: 30 1RF trazodone 100 mg tablet 100 mg PO BEDTIME PRN (Reason: insomnia) 30 Days Qty: 30 1RF folic acid 1 mg Tablet 1 mg PO DAILY 30 Days Qty: 30 0RF albuterol sulfate [ProAir HFA] 90 mcg/actuation Hfa Aerosol Inhaler 2 puff INHALATION Q4H PRN (Reason: Shortness Of Breath) 30 Days Qty: 6.7 1RF lamotrigine 100 mg tablet 100 mg PO DAILY 30 Days Qty: 30 1RF disulfiram 250 mg tablet 250 mg PO DAILY 30 Days Qty: 30 0RF lamotrigine 150 mg tablet 150 mg PO DAILY 30 Days Qty: 30 0RF Interventions: ED Discharge Assessment Last Done: 11/06/22 02:07 Discharge Date/Time: 11/06/22 02:22
[2022-11-06 00:32] LABS: Folate > 20.0 ng/mL (> or = 4.0); Vitamin B12 839 pg/mL (200-900)
--- NOTE | 2022-11-06 00:32 | MHC.EDTECH ---
PT made aware that urine sample is needed but does not need to go right now. Urine cup left bedside. PT instructed to ring call [facility] when she is ready to go.
[2022-11-06 02:00] VITALS: BP 119/72; PULSE 88; RESP 14; O2SAT 94
== END 2022-11-06 02:22 | disposition home or self-care (01) ==
PROVIDERS: Emergency Provider Internal Medicine; PCP Hospitalist
DX: R29.6 Repeated falls (principal); Z91.81 History of falling; F17.210 Nicotine dependence, cigarettes, uncomplicated; F14.10 Cocaine abuse, uncomplicated; F10.20 Alcohol dependence, uncomplicated; Y90.0 Blood alcohol level of less than 20 mg/100 ml; Z79.899 Other long term (current) drug therapy
CPT/HCPCS: 36415; 70450; 72125; 80053; 82077; 82607; 82746; 83735; 85025; 93005; 99284

== ENCOUNTER 2023-06-25 11:32 | Outpatient (AMB) | payer OTHER, SELFPAY ==
--- NOTE | 2023-06-25 11:36 | A.OFFPC_ITS ---
Vital Signs 06/25/23 11:38 Height 5 ft 1 in Weight 147 lb BMI 27.8 BP 122/74 Blood Pressure Location Lt brachial Position Sitting Pulse 89 Pulse Source Pulse Oximeter Pulse Oximetry (%) 98 Oxygen Delivery Method Room Air Intake Visit Reasons: 3 mo fu for mood and asthma/neurology Intake Note: Patient is here to follow up on mood she feels her ears have been blocked up for months, and would like a referral for gastro for colonoscopy and endoscopy. Allergies No Known Allergies Allergy (Verified 06/25/23 11:43) HPI 3 mo fu for mood and asthma/neurology HPI Details 43 y/o female presents to f/u depression /PTSD and chronic conditions. She reports ears have been blocked up for months. Questionnaire high for depression/anxiety. She reports she does have a therapist and a psychiatrist. She notes they have been adjusting her meds for her. She denies any SI/HI today. She reports she does have chronic GERD. She does not have a GI specialist. She reports fibromyalgia. [facility] Medical History Alcohol abuse Alcohol dependence Chronic post-traumatic stress disorder (PTSD) Cocaine abuse Depression Fibromyalgia Social History Household Members: Friend(s) Household Members Other:: yes. Housing: Homeless Housing Other:: Friend's trailer Do you presently have visiting nurse or other home services: No Alcohol intake: current Alcohol intake frequency: other Alcohol type: hard liquor Patient Tobacco Use Status: Current everyday Tobacco user Tobacco use type: Cigarette Cigarette Packs Per Day: 1.5 Cigarettes Per Day: 30.0 Years Smoked: 29 e-Cigarette/Vaping Use: Never Used Second Hand Smoke Exposure: Yes Substance Use Type: Crack/Cocaine and Marijuana service: No Sexual orientation: Did not discuss Questionnaire PHQ-9 Over the last 2 weeks, how often have you been bothered by any of the following problems? 1. Little interest or pleasure in doing things: nearly every day 2. Feeling down, depressed, or hopeless: nearly every day 3. Trouble falling or staying asleep, or sleeping too much: not at all 4. Feeling tired or having little energy: nearly every day 5. Poor appetite or overeating: nearly every day 6. Feeling bad about yourself - or that you are a failure or have let yourself or your family down: several days 7. Trouble concentrating on things, such as reading the newspaper or watching television: nearly every day 8. Moving or speaking so slowly that other people could have noticed. Or the opposite - being so fidgety or restless that you have been moving around a lot more than usual: several days 9. Thoughts that you would be better off or of hurting yourself in some way: not at all Total score: 17 Depression Screening Interpretation: Positive Depression Screening Follow-up: Existing condition and In treatment Depression Screening Done: Yes 66641 - PHQ-9 Billing: Yes Source: Developed by Drs. Troy Felipe, Lucrecia Soto, Jermaine Escobar and colleagues, with an educational ez from [employer]. JOYCE-7 AMB Questionnaire JOYCE-7 Date JOYCE - 7 assessed: 06/25/23 Feeling nervous, anxious, or on edge: 1 = Several days Not being able to stop or control worryin = Several days Worrying too much about different things: 2 = More than half the days Trouble relaxin = Several days Being so restless that it is hard to sit still: 2 = More than half the days Becoming easily annoyed or irritable: 3 = Nearly every day Feeling afraid as if something awful might happen: 2 = More than half the days Total JOYCE-7 score (0-4 normal; 5-9 mild; 10-14 moderate; 15-21 severe): 12 Source: Developed by Drs. Troy Felipe, Lucrecia Soto, Jermaine Escobar and colleagues, with an educational ez from [employer]. JOYCE-7 Assessment Billing JOYCE-7 Assessment Tool: JOYCE-7 Assessment 45376 ACT Questionnaire In the past 4 weeks, how much of the time did your asthma keep you from getting as much done at work, school or at home?: Most of the time During the past 4 weeks, how often have you had shortness of breath?: Not at all During the past 4 weeks, how often did your asthma symptoms wake you up at night or earlier than usual in the morning?: Not at all During the past 4 weeks, how often have you had to use your rescue inhaler or nebulizer medication?: Not at all (twice in the past 4 weeks) How would you rate your asthma control during the past 4 weeks?: Well controlled Score: 21 Review of Systems Const Denies chills, Denies fatigue, Denies fever(s), Denies headache(s) and Denies weakness ENT Denies dizziness and Denies headache(s) Card Denies dyspnea Resp Denies cough, Denies dyspnea, Denies wheezing and Denies other (shortness of breath) Musc Details: Shoulder pain Denies numbness and Denies tingling Neuro Denies dizziness, Denies headache(s), Denies numbness, Denies tingling and Denies weakness Psych Reports anxiety and Reports depression Endo Denies fatigue Aller/Immun Denies wheezing Physical exam (Primary Care) Vital Signs: Last Vital Signs Pulse 89 06/25/23 11:38 BP 122/74 06/25/23 11:38 Pulse Ox 98 06/25/23 11:38 Oxygen Delivery Method Room Air 06/25/23 11:38 BMI result Body Mass Index 27.8 Tobacco/Smoking Status: Tobacco use Status Patient Tobacco Use Status Current everyday Tobacco 06/25/23 11:49 Tobacco use type Cigarette 06/25/23 11:49 e-Cigarette/Vaping Use Never Used 06/25/23 11:49 PHQ-9: PHQ-9 Score PHQ-9: Total score 17 06/25/23 12:14 Depression Screening Interpretation: Positive Depression Screening Follow-up: Existing condition and In treatment Const General: well developed; No acute distress Nutritional Appearance: well nourished Orientation/consciousness: patient oriented x3 HENMT Head: Yes normocephalic and Yes atraumatic Eyes General: appearance normal, both eyes and all related structures Pupils: Equal, round and reactive pupils present EOM: EOMs intact bilaterally Resp Effort & Inspection: normal respiratory effort Neuro General: patient oriented x3 and gait normal Cranial nerves: Yes Equal, round and reactive pupils present Psych Affect: normal affect Assessment and Plan Assessment & Plan (1) Depression: Code(s): F32.A - Depression, unspecified Plan: Patient?has?psychiatry?and?therapy. She?has?been?consistent?with?her?medical?regimen?which?is?fairly?new. No?SI/HI Continue?current?medication?regimen?and?follow- up?with?psychiatrist?and?therapist?as?recommended (2) Chronic post-traumatic stress disorder (PTSD): Code(s): F43.12 - Post-traumatic stress disorder, chronic Plan: As?above (3) Chronic GERD: Code(s): K21.9 - Gastro-esophageal reflux disease without esophagitis Plan: Chronic?GERD Refilled?omeprazole?and?referred?her?to?GI (4) Fibromyalgia: Code(s): M79.7 - Fibromyalgia Plan: Ongoing?fibromyalgia. Start?physical?therapy Switching?gabapentin?to?Lyrica (5) Shoulder pain: Code(s): M25.519 - Pain in unspecified shoulder Orders: Orders PT Evaluation and Treatment Today M25.519 - Pain in unspecified shoulder, M79.7 - Fibromyalgia Referrals Gastroenterology Referral K21.9 - Gastro-esophageal reflux disease without es ophagitis Medications: New pregabalin 200 mg PO BEDTIME 30 caps 0RF 30 days Refilled omeprazole 40 mg PO DAILY 30 caps 3RF 30 days Coding Level of Care Code Est Pt Level 4 (99583) Diagnoses Depression F32.A Chronic post-traumatic stress disorder (PTSD) F43.12 Chronic GERD K21.9 Fibromyalgia M79.7 Shoulder pain M25.519 Additional Codes JOYCE-7 Assessment Billing - JOYCE-7 Assessment Tool: JOYCE-7 Assessment [id number] ([id number])
[2023-06-25 11:38] VITALS: BP 122/74; PULSE 89; O2SAT 98; BMI 27.8
== END 2023-06-25 12:34 | disposition home or self-care (01) ==
PROVIDERS: PCP Hospitalist; Visit Provider Family Medicine
DX: K21.9 Gastro-esophageal reflux disease without esophagitis (principal); F32.A Depression, unspecified; F43.12 Post-traumatic stress disorder, chronic; M79.7 Fibromyalgia; M25.519 Pain in unspecified shoulder
CPT/HCPCS: 96127; 99214

== ENCOUNTER 2023-07-21 09:03 | Outpatient (REF) | payer OTHER, SELFPAY ==
[2023-07-21 11:17] LABS: MANUAL DIFF FLAG NO
[2023-07-21 11:21] LABS: Appearance Urine Cloudy; Color Urine Yellow; Glucose Urine UA Negative (Negative); Leukocyte Esterase Urine Negative (Negative); Nitrite Urine Negative (Negative); Specific Gravity - Urine >= 1.030 (1.005-1.025); Urine Blood Negative (Negative); Urine Ketones Trace mg/dL (Negative); Urine Protein Negative (Neg-Trace)
[2023-07-21 11:22] LABS: Basophils Absolute Auto 0.1 X10*3/uL (0.0-0.2); Basophils Percent Auto 0.5 % (0-2); Eosinophils Absolute Auto 0.1 X10*3/uL (0.0-0.4); Eosinophils Percent Auto 0.7 % (0-4); Hematocrit 37.5 % (37.0-47.0); Hemoglobin 12.2 g/dl (12.0-16.0); Imm Gran Abs Auto 0.04 X10*3/uL (0.00-0.03); Imm Gran Pct Auto 0.4 % (0.0-0.4); Lymphocytes Absolute Auto 1.8 X10*3/uL (1.2-4.9); Mean Corpuscular HGB Conc 32.5 g/dl (31.0-35.0); Mean Corpuscular Hemoglobin 28.7 pg (27.0-33.0); Mean Corpuscular Volume 88.2 fL (80.0-98.0); Mean Platelet Volume 10.9 fL (9.4-12.3); Monocytes Absolute Auto 0.7 X10*3/uL (0.1-1.2); Monocytes Percent Auto 6.9 % (2-11); Neutrophils Absolute Auto 6.9 x10*3/uL (2.0-8.3); Neutrophils Percent Auto 72.5 % (45-73); Platelet Count 255 X10*3/uL (160-400); Red Blood Count 4.25 X10*6/uL (4.20-5.50); Red Cell Distribution Width 15.7 % (11.0-16.0); White Blood Count 9.6 X10*3/uL (4.8-10.8)
[2023-07-21 11:44] LABS: Alanine Aminotransferase 12 U/L (0-31); Albumin Level 4.2 g/dL (3.5-5.0); Alkaline Phosphatase 81 U/L (39-117); Anion Gap 11 (12-20); Aspartate Amino Transferase 16 U/L (5-31); Bilirubin Total 0.2 mg/dL (0.0-1.0); Blood Urea Nitrogen 13 mg/dL (9-16); Calcium 9.3 mg/dL (8.4-10.2); Carbon Dioxide 24 mmol/L (22-29); Chloride 109 mmol/L (96-108); Cholesterol 252 mg/dL (<200); Estimated Glomerular Filt Rate > 60; Glucose Fasting 95 mg/dL (60-99); HDL Cholesterol 68 mg/dL (>40); LDL Cholesterol Calculated 170 mg/dL (<100); Potassium 4.2 mmol/L (3.3-5.1); Sodium 140 mmol/L (135-145); Total Protein 7.1 g/dL (6.5-8.0); Triglycerides 74 mg/dL (<150)
[2023-07-21 11:52] LABS: TSH reflex Free T4 0.41 uIU/mL (0.32-4.0)
[2023-07-21 11:54] LABS: Creatinine Urine 192.51 mg/dL; Microalbum/Creatinine Ratio Ur 4.6 ug/mg cr (<30)
[2023-07-21 12:21] LABS: Erythrocyte Sedimentation Rate 17 MM/HR (0-20)
== END 2023-07-21 09:04 | disposition home or self-care (01) ==
LOC: HO.WFDLDS 09:03
PROVIDERS: Visit Provider Family Medicine
DX: Z00.00 Encounter for general adult medical examination without abnormal findings (principal); M79.7 Fibromyalgia; I10 Essential (primary) hypertension
CPT/HCPCS: 36415; 80053; 80061; 81003; 82043; 82570; 84443; 85025; 85652

== ENCOUNTER 2023-09-06 14:55 | Outpatient (REF) | payer OTHER, SELFPAY ==
[2023-09-06 18:10] LABS: Alanine Aminotransferase 12 U/L (0-31); Albumin Level 4.1 g/dL (3.5-5.0); Alkaline Phosphatase 81 U/L (39-117); Aspartate Amino Transferase 16 U/L (5-31); Bilirubin Direct < 0.2 mg/dL (0.0-0.5); Bilirubin Total 0.1 mg/dL (0.0-1.0); Lipase 33 U/L (8-78); Total Protein 6.9 g/dL (6.5-8.0)
[2023-09-06 18:23] LABS: TSH reflex Free T4 0.52 uIU/mL (0.32-4.0)
[2023-09-07 13:28] LABS: Transglutaminase Ab IgG <1.0 U/mL; Transglutaminase IgA <1.0 U/mL
== END 2023-09-06 14:56 | disposition home or self-care (01) ==
LOC: HO.LAB 14:55
PROVIDERS: PCP Hospitalist; Visit Provider Nurse Practitioner Family
DX: R10.9 Unspecified abdominal pain (principal); R13.19 Other dysphagia; R74.01 Elevation of levels of liver transaminase levels; K21.9 Gastro-esophageal reflux disease without esophagitis; R11.0 Nausea; K59.04 Chronic idiopathic constipation
CPT/HCPCS: 36415; 80076; 83690; 84443; 86364; 99202

== ENCOUNTER 2023-09-06 14:55 | Outpatient (AMB) | payer OTHER, SELFPAY ==
[2023-09-06 14:58] VITALS: BP 122/85; PULSE 85; BMI 27.1
--- NOTE | 2023-09-06 14:58 | MHC.OFFVIS ---
Intake Vital Signs 09/06/23 14:58 Height 5 ft 1 in Weight 143 lb 4.807 oz BMI 27.1 BP 122/85 Blood Pressure Location Rt brachial Position Sitting Pulse 85 Intake Visit Reasons: Gastroesophageal reflux disease (GERD) Intake Note: Patient presents to in office visit today as a new patient for GERD. CC: Patient states 8 years ago she had an EGD and she was told whatever you're doing you need to stop . Patient states by that time she was an alcoholic but she has been sober for 7 months now. Patient states she takes a stool softener to have a BM and when it comes out is just a little bit. She reports she has hemorrhoids with occasional bleeding and seeing mucous in her stools about a week ago. She c/o nausea, GERD, sometimes feeling that the food gets stuck, lower abdominal cramps about every other day. Mask Layout Designer Required: No Allergies No Known Allergies Allergy (Verified 09/06/23 15:08) HPI Gastroesophageal reflux disease (GERD) HPI Details 43-year-old female with past medical history of COPD, GERD, PTSD, MDD, fibromyalgia, previous ETOH abuse is here today for initial consultation. Patient has been sent by her PCP. Patient reports postprandial epigastric pain, bloating, dyspepsia with occasional dysphagia without odynophagia. Patient states that she has been placed on omeprazole and despite taking the medication she will continue to have acid reflux. Patient had upper endoscopy about 8 years ago, at that time patient was an alcoholic and drinking a lot. Patient also reports that she smokes daily. Patient was told that she had gastritis at that time. Patient states that she was sober for short period of time and then started drinking again. Patient states that just recently about 7 months ago she quits drinking again. Currently is going to and is in a residential program where she feels safe. Patient continues to smoke cigarettes. Patient reports that she is trying to eat healthy. Patient states that her mom was diagnosed with esophageal dysmotility patient reports that she is having trouble moving her bowels. No bowel movement sometimes for 3-5 days. When she has a bowel movement is only small amount, soft stool. Denies melena, hematochezia, unintentional weight loss or ribbon like stools. PFSH Medical History Cocaine abuse Alcohol dependence Fibromyalgia Chronic post-traumatic stress disorder (PTSD) Depression Alcohol abuse Surgical History S/P carpal tunnel release History of esophagogastroduodenoscopy (EGD) H/O colonoscopy H/O section Family History Maternal Grandmother Colon cancer Family/Other Lung cancer Social History Household Members: Friend(s) Household Members Other:: yes. Housing: Homeless Housing Other:: Friend's trailer Do you presently have visiting nurse or other home services: No Alcohol intake: current Alcohol intake frequency: other Alcohol type: hard liquor Comment: per patient sober for about 7 months 09/06/22 Patient Tobacco Use Status: Current everyday Tobacco user Tobacco use type: Cigarette Cigarette Packs Per Day: 1.5 Cigarettes Per Day: 30.0 Years Smoked: 29 e-Cigarette/Vaping Use: Never Used Second Hand Smoke Exposure: Yes Substance Use Type: Crack/Cocaine and Marijuana service: No Sexual orientation: Did not discuss Review of Systems Const Denies weight gain and Denies weight loss ENT Reports no additional complaints, Reports dysphagia and Denies odynophagia Card Reports no additional complaints Resp Reports no additional complaints GI Reports abdominal pain (LLQ), Denies belching, Denies melena, Reports bloating, Denies change in bowel habits, Reports dysphagia, Denies excessive flatus, Denies dyspepsia, Reports heartburn, Denies diarrhea, Denies loose stools, Reports nausea, Denies odynophagia and Denies vomiting Reports no additional complaints Musc Reports no additional complaints Neuro Reports no additional complaints Psych Reports no additional complaints Endo Reports no additional complaints Physical Exam Vital Signs: Last Vital Signs Pulse 85 09/06/23 14:58 BP 122/85 09/06/23 14:58 BMI result Body Mass Index 27.1 Const General: healthy appearing, no acute distress and well developed Nutritional Appearance: well nourished Orientation/consciousness: patient oriented x3 Resp Effort & Inspection: normal respiratory effort, able to speak in complete sentences, no tracheal deviation and symmetric chest movement Auscultation: clear to auscultation bilaterally Cardio Rate: regular rate GI Inspection: Yes normal to inspection and No distended Palpation (GI): Soft to palpation, not firm, nontender and No hepatosplenomegaly present Auscultation: normal bowel sounds General: Yes no CVA tenderness Back/Spine/Pelvis Back: no CVA tenderness Skin General skin exam: elasticity normal, turgor normal and dry skin Neuro General: patient oriented x3 Psych Appearance: grossly normal Mental Status: mental status grossly normal Assessment & Plan Assessment & Plan (1) Chronic GERD: Code(s): K21.9 - Gastro-esophageal reflux disease without esophagitis (2) Constipation: Code(s): K59.00 - Constipation, unspecified Qualifiers: Constipation type: chronic idiopathic constipation Qualified Code(s): K59.04 - Chronic idiopathic constipation (3) Dysphagia: Code(s): R13.10 - Dysphagia, unspecified Qualifiers: Dysphagia type: other dysphagia Qualified Code(s): R13.19 - Other dysphagia Plan Patient will stop omeprazole and start Nexium every morning half an hour before breakfast. Discussed with patient avoiding dietary triggers and late night snacking. Staying upright for minimum 3 hours after meals discussed with patient. Patient reports dysphagia will send her for barium swallow to rule out esophageal dysmotility, Schatzki, achalasia, reflux. Will rule out celiac, H pylori, pancreatitis. Check liver enzymes. History of ETOH use in the past. Patient will start taking Senokot 2 tablets every evening. Patient was encouraged to increase fluid intake and activity to promote better bowel motility. She will return in 5 weeks, sooner on as needed basis. Patient is agreeable to this plan and verbalizes understanding of instructions. She was given the opportunity to ask questions and all questions answered. Thank you for allowing me to participate in her care Orders: Orders Transglutaminase Ab IgG Today R10.9 - Unspecified abdominal pain Lipase Today R10.9 - Unspecified abdominal pain FL barium swallow Today R13.10 - Dysphagia, unspecified TSH reflex Free T4 Today K59.00 - Constipation, unspecified H pylori Ag Stool Today K21.9 - Gastro-esophageal reflux disease without esophagitis Transglutaminase IgA Today R10.9 - Unspecified abdominal pain Liver Panel Today R74.01 - Elevation of levels of liver transaminase levels Medications: New esomeprazole magnesium (Nexium) 40 mg PO DAILY 30 caps 5RF K21.9 - Gastro-esophageal reflux disease without esophagitis Changed From sennosides (senna) 8.6 mg PO DAILY To sennosides (senna) 17.2 mg (2 x 8.6 mg) PO DAILY 60 caps 2RF Discontinued omeprazole Discontinued Reason: Doctor's Order 40 mg PO DAILY 30 days 30 caps 3RF Coding Level of Care Code New Pt Level 4 (13236) Diagnoses Chronic GERD K21.9 Chronic idiopathic constipation K59.04 Constipation type: chronic idiopathic constipation Other dysphagia R13.19 Dysphagia type: other dysphagia Time Spent (min) 45 Comment 30 minutes spent with patient and additional 15 minutes spent reviewing her records
== END 2023-09-06 15:40 | disposition home or self-care (01) ==
PROVIDERS: PCP Family Medicine; Visit Provider Nurse Practitioner Family
DX: K21.9 Gastro-esophageal reflux disease without esophagitis (principal); K59.04 Chronic idiopathic constipation; R13.19 Other dysphagia
CPT/HCPCS: 99204

== ENCOUNTER 2023-09-11 10:56 | Outpatient (REF) | payer OTHER, SELFPAY | END 2023-09-11 10:57 | disposition home or self-care (01) | LOC: HO.LNP 10:56 | PROVIDERS: Visit Provider Nurse Practitioner Family | DX: K21.9 Gastro-esophageal reflux disease without esophagitis (principal) | CPT/HCPCS: 87338 ==

== ENCOUNTER 2023-10-11 11:11 | Outpatient (AMB) | payer OTHER, SELFPAY ==
[2023-10-11 11:17] VITALS: BP 124/77; PULSE 88; BMI 26.7
--- NOTE | 2023-10-11 11:17 | A.OFFVIS_ITS ---
Intake Vital Signs 10/11/23 11:17 Height 5 ft 1 in Weight 141 lb 8.588 oz BMI 26.7 BP 124/77 Blood Pressure Location Rt brachial Position Sitting Pulse 88 Intake Visit Reasons: 5 week follow up Intake Note: Patient presents to in office visit today in 5 weeks follow up of labs. CC: Patient states that she takes 8 pills in the morning, and it hurts while they're going down her esophagus and then she feels they get stuck down around her stomach and she feels she will pass out. She also states the Senna she takes is not helping her with constipation and sometimes she is 4 days without pooping Trimming Cutter Machine Required: No Allergies No Known Allergies Allergy (Verified 10/11/23 11:21) HPI 5 week follow up HPI Details LAST VISIT Chronic GERD Constipation Dysphagia Plan Patient will stop omeprazole and start Nexium every morning half an hour before breakfast. Discussed with patient avoiding dietary triggers and late night snacking. Staying upright for minimum 3 hours after meals discussed with meg diehl Patient reports dysphagia will send her for barium swallow to rule out esophageal dysmotility, Schatzki, achalasia, reflux. Will rule out celiac, H pylori, pancreatitis. Check liver enzymes. History of ETOH use in the past. Patient will start taking Senokot 2 tablets every evening. Patient was encouraged to increase fluid intake and activity to promote better bowel motility. She will return in 5 weeks, sooner on as needed basis. Patient is agreeable to this plan and verbalizes understanding of instructions. She was given the opportunity to ask questions and all questions answered. ? Thank you for allowing me to participate in her care Orders Orders Transglutaminase Ab IgG Today R10.9 Lipase Today R10.9 FL barium swallow Today R13.10 TSH reflex Free T4 Today K59.00 H pylori Ag Stool Today K21.9 Transglutaminase IgA Today R10.9 Liver Panel Today R74.01 Medications New esomeprazole magnesium (Nexium) 40 mg PO DAILY 30 caps 5RF K21.9 Changed Changed From sennosides (senna) 8.6 mg PO DAILY Changed To sennosides (senna) 17.2 mg (2 x 8.6 mg) PO DAILY 60 caps 2R F Discontinued omeprazole Discontinued Reason: Doctor's Order 40 mg PO DAILY 30 days 30 caps 3RF TODAY'S VISIT: Patient is here today for follow-up and to discuss lab results. Patient reports that she is feeling little better, however occasionally she will have a feeling like she is unable to fully swallow. Barium swallow is schedule for October. All of her blood work is done and negative for any acute processes. Patient reports that this happens not every day but only occasionally. Patient reports that she is 8 months sober now. Still continues to smoke cigarettes. Denies any illicit drug use. Reports that Nexium works better than omeprazole. Patient states that she continues to be constipated. Feels like sometimes Senokot works and sometimes does not. Sometimes no bowel movement for 3-4 days. Patient denies any melena, hematochezia, unintentional weight loss or ribbon like stools. Occasional dyspepsia with dysphagia without odynophagia. Patient denies any nausea or vomiting. Denies any abdominal pain or discomfort except for epigastric pain when trouble swallowing. PFSH Medical History Cocaine abuse Alcohol dependence Fibromyalgia Chronic post-traumatic stress disorder (PTSD) Depression Alcohol abuse Surgical History S/P carpal tunnel release History of esophagogastroduodenoscopy (EGD) H/O colonoscopy H/O section Family History Maternal Grandmother Colon cancer Family/Other Lung cancer Social History Household Members: Friend(s) Household Members Other:: yes. Housing: Homeless Housing Other:: Friend's trailer Do you presently have visiting nurse or other home services: No Alcohol intake: current Alcohol intake frequency: other Alcohol type: hard liquor Comment: per patient sober for about 7 months 09/06/22 Patient Tobacco Use Status: Current everyday Tobacco user Tobacco use type: Cigarette Cigarette Packs Per Day: 1.5 Cigarettes Per Day: 30.0 Years Smoked: 29 e-Cigarette/Vaping Use: Never Used Second Hand Smoke Exposure: Yes Substance Use Type: Crack/Cocaine and Marijuana service: No Sexual orientation: Did not discuss Review of Systems Const Denies weight gain and Denies weight loss ENT Reports no additional complaints, Denies dysphagia and Denies odynophagia Card Reports no additional complaints Resp Reports no additional complaints GI Reports abdominal pain (epigastric), Denies belching, Denies melena, Reports bloating, Reports constipation, Denies dysphagia, Denies excessive flatus, Reports dyspepsia, Reports heartburn, Denies diarrhea, Denies loose stools, Denies nausea, Denies odynophagia and Denies vomiting Reports no additional complaints Musc Reports no additional complaints Neuro Reports no additional complaints Psych Reports no additional complaints Endo Reports no additional complaints Physical Exam Vital Signs: BMI result Body Mass Index 26.7 Const General: healthy appearing, no acute distress and well developed Nutritional Appearance: well nourished Orientation/consciousness: patient oriented x3 Resp Effort & Inspection: normal respiratory effort, able to speak in complete sentences, no tracheal deviation and symmetric chest movement Auscultation: clear to auscultation bilaterally Cardio Rate: regular rate GI Inspection: Yes normal to inspection and No distended Palpation (GI): Soft to palpation, not firm, nontender and No hepatosplenomegaly present Auscultation: normal bowel sounds General: Yes no CVA tenderness Back/Spine/Pelvis Back: no CVA tenderness Skin General skin exam: elasticity normal, turgor normal and dry skin Neuro General: patient oriented x3 Psych Appearance: grossly normal Mental Status: mental status grossly normal Results Reviewed Results Reviewed: Laboratory Tests 09/06/23 16:03 Total Bilirubin 0.1 Direct Bilirubin < 0.2 AST 16 ALT 12 Alkaline Phosphatase 81 Lipase 33 TSH 0.52 Tiss Transglutamin IgG <1.0 Tiss Transglutamin IgA <1.0 Assessment & Plan Assessment & Plan (1) Chronic GERD: Code(s): K21.9 - Gastro-esophageal reflux disease without esophagitis (2) Constipation: Code(s): K59.00 - Constipation, unspecified Qualifiers: Constipation type: slow transit constipation Qualified Code(s): K59.01 - Slow transit constipation (3) Dysphagia: Code(s): R13.10 - Dysphagia, unspecified Qualifiers: Dysphagia type: esophageal phase Qualified Code(s): R13.19 - Other dysphagia Plan Patient was encouraged to increase fluid intake and activity to promote better bowel motility. Patient can continue senna and will start taking MiraLax in the morning. Continue Nexium. Avoid dietary triggers and late night snacking. Staying upright for minimal 3 hours after meals discussed with patient. Negative H pylori. Will send patient for upper endoscopy to rule out Schatzki ring, achalasia, gastritis, duodenitis, esophagitis, gastric or peptic ulcers, H pylori. I will see her after the procedure, sooner on as needed basis. Patient is agreeable to this plan and verbalizes understanding of instructions. She was given the opportunity to ask questions and all questions answered. Thank you for allowing me to participate in her care Medications: New polyethylene glycol 3350 (Miralax) 17 grams PO DAILY 510 grams 2RF Coding Level of Care Code Est Pt Level 4 (47695) Diagnoses Chronic GERD K21.9 Slow transit constipation K59.01 Constipation type: slow transit constipation Esophageal dysphagia R13.19 Dysphagia type: esophageal phase Time Spent (min) 35 Comment 20 minutes spent with patient and additional 15 minutes spent reviewing her records
== END 2023-10-11 11:36 | disposition home or self-care (01) ==
PROVIDERS: PCP Family Medicine; Visit Provider Nurse Practitioner Family
DX: K21.9 Gastro-esophageal reflux disease without esophagitis (principal); K59.01 Slow transit constipation; R13.19 Other dysphagia
CPT/HCPCS: 99214

== ENCOUNTER → 2023-10-11 11:11 | Outpatient (BNVA) | payer OTHER, SELFPAY | PROVIDERS: PCP Family Medicine; Visit Provider Nurse Practitioner Family | DX: K21.9 Gastro-esophageal reflux disease without esophagitis (principal); K59.01 Slow transit constipation; R13.19 Other dysphagia | CPT/HCPCS: 99212 ==

== ENCOUNTER 2023-11-05 07:59 | Outpatient (REF) | payer OTHER, SELFPAY ==
--- NOTE | ~2023-11-05 | FL_ITS ---
EXAMINATION: XR FLUOROSCOPY UPPER GI WITH AIR CLINICAL INFORMATION: Dysphagia. Reflux COMPARISON: None TECHNIQUE: Fluoroscopic air contrast upper GI examination was performed utilizing standard techniques with thin and thick barium and effervescent granules. Numerous spot images were obtained. FINDINGS: Lateral cine images of the oropharynx and hypopharynx demonstrate normal swallow mechanism with normal epiglottic inversion and soft palate elevation. There is trace laryngeal penetration with thick barium. No subglottic aspiration. Mild ballooning of the hypopharynx is noted. No nasopharyngeal reflux present. Hypopharyngeal structures appear normal without evidence of mass or diverticulum. There is mild to moderate cricopharyngeal achalasia present. Dual and single contrast images of the esophagus demonstrate normal caliber and contour. Mild thickening of the linear striations of the mid and distal esophagus present. Mild granular appearance to the mid and distal esophageal mucosa, may suggest mild esophagitis. Feline pattern noted episodically, a finding usually associated with reflux. No evidence of stricture, mass, or ulcerations identified. Esophageal peristalsis was normal. There is mild to moderate narrowing of the GE junction that may represent a benign stricture versus Schatzki's ring (RF 1-6, image 58 of 64). This lies above the hiatus hernia. A moderate-sized type I hiatal hernia is present. No significant gastroesophageal reflux was seen during the course of the examination and on reflux views. Dual contrast and single contrast images of the stomach demonstrated a normal contour. The gastric rugal folds are thickened. There are multiple tiny areas of contrast pooling in the fundus and body the stomach that likely represents small superficial aphthous ulcers. No masses are present. Contrast freely passed into the gastric antrum and duodenal bulb without delay. Single and air-contrast images of the duodenal bulb demonstrate no abnormality. The duodenal sweep has a normal appearance, course, and mucosal fold appearance. The imaged proximal jejunum has a normal fold pattern and caliber. FLUOROSCOPY TIME: 3 minutes 4 seconds Number of Spot Images: 15 Number of Cine: 11 DOSE AREA PRODUCT: 1351 uGy-m2 (microgray-meter squared) FL/FL barium swallow IMPRESSION: 1. Trace laryngeal penetration with thick barium. No subglottic aspiration. 2. Mild to moderate cricopharyngeal achalasia. 3. Findings likely related to mild erosive esophagitis as detailed. 3. Moderate narrowing of the GE junction above the hiatus hernia is likely a Schatzki's ring. Short segment benign stricture cannot be ruled out. 4. Moderate-sized type I hiatal hernia. 5. Thickened gastric mucosal folds. In addition there are multiple tiny areas of contrast pooling in the fundus and body the stomach. These findings are suggestive of erosive gastritis. Recommend correlation with EGD. This procedure was performed by Tom Mukherjee PA-C, and supervised by Dr. Morales
== END 2023-11-05 08:00 | disposition home or self-care (01) ==
LOC: HO.XRAY 07:59
PROVIDERS: Visit Provider Nurse Practitioner Family
DX: R13.10 Dysphagia, unspecified (principal)
CPT/HCPCS: 74220

== ENCOUNTER → 2023-11-05 08:01 | Outpatient (BNV) | payer OTHER, SELFPAY | PROVIDERS: Visit Provider Physician Assistant Surgical | DX: R13.10 Dysphagia, unspecified (principal) | CPT/HCPCS: 74246 ==

== ENCOUNTER 2023-11-25 12:17 | Day surgery (SDC) | payer OTHER, SELFPAY ==
[2023-11-22 15:31] VITALS: BMI 26.8
[2023-11-25 12:22] VITALS: BMI 26.4
[2023-11-25 12:34] VITALS: BP 113/77; PULSE 78; RESP 16; TEMP 36.2; O2SAT 98
[2023-11-25] MEDS: Lactated Ringers 1,000 ML 100 ML IVCONT (12:35)
--- NOTE | 2023-11-25 13:20 | HO.ANESPROP2 ---
Documented by User: Serenity Bloom NP 11/24/23 09:52 HPI - Anesthesia Eval Consult details Narrative: 43yo F for Upper Endoscopy Hx polysub PMFSH Active Problems Active Problems: All Active Problems Shoulder pain (Acute) COPD (chronic obstructive pulmonary disease) (Acute) Normal physical exam (Acute) Smoker (Acute) Substance abuse (Acute) Chronic GERD (Acute) Medication monitoring encounter (Acute) Post traumatic stress disorder (PTSD) (Acute) MDD (major depressive disorder), recurrent episode, moderate (Acute) Fibromyalgia (Acute) Chronic post-traumatic stress disorder (PTSD) (Acute) Depression (Acute) Past Medical History Medical History Cocaine abuse Alcohol dependence Fibromyalgia Chronic post-traumatic stress disorder (PTSD) Depression Alcohol abuse Family History Family History Maternal Grandmother Colon cancer Family/Other Lung cancer Surgical History Surgical History (Updated 11/25/23 @ 12:38 by Nayana Paige RN) H/O tubal ligation S/P carpal tunnel release History of esophagogastroduodenoscopy (EGD) H/O colonoscopy H/O section Social History Social History Household Members: Friend(s) Household Members Other:: yes. Housing: Homeless Housing Other:: Friend's trailer Do you presently have visiting nurse or other home services: No Alcohol intake: current Alcohol intake frequency: other Alcohol type: hard liquor Comment: per patient sober for about 7 months 09/06/22 Patient Tobacco Use Status: Current everyday Tobacco user Tobacco use type: Cigarette Cigarette Packs Per Day: 1.5 Cigarettes Per Day: 10 Years Smoked: 29 e-Cigarette/Vaping Use: Never Used Second Hand Smoke Exposure: Yes Use of substances other than those prescribed or required for medical reasons: No Substance Use Type: Crack/Cocaine and Marijuana Are you DNR?: No Advance Directives: No Advance Directives Information Provided: Yes service: No Sexual orientation: Did not discuss Meds Allergies Allergy/AdvReac Type Severity Reaction Status Date / Time No Known Allergies Allergy Verified 11/25/23 12:27 Home Medications ?Medication ?Instructions ?Recorded ?Confirmed ?Last Taken ?Type cariprazine 4.5 mg capsule 4.5 mg PO DAILY 06/25/23 11/25/23 11/24/23 History (Vraylar) bupropion HCl 300 mg 24 hr tablet, 300 mg PO DAILY 09/06/23 11/25/23 11/24/23 History extended release disulfiram 250 mg tablet 250 mg PO DAILY 09/06/23 11/25/23 11/24/23 History lamotrigine 200 mg tablet 200 mg PO DAILY 09/06/23 11/25/23 11/24/23 History trazodone 150 mg tablet 75 mg PO BEDTIME 10/11/23 11/25/23 11/24/23 History Exam Height,Weight and Vital Signs: Height 5 ft 1 in Weight 64.41 kg Assessment and Plan Assessment Anesthesia Assessment: Chart Reviewed Documented by User: Cleo Mcgregor DO 11/25/23 13:23 HPI - Anesthesia Eval Consult details Narrative: 43yo F for Upper Endoscopy Hx polysub - has not used cocaine in years. Daily marijuana. PMFSH Past Medical History Medical History Cocaine abuse Alcohol dependence Fibromyalgia Chronic post-traumatic stress disorder (PTSD) Depression Alcohol abuse Family History Family History Maternal Grandmother Colon cancer Family/Other Lung cancer Family history of problems with anesthesia: No Surgical History Surgical History (Updated 11/25/23 @ 12:38 by Nayana Paige RN) H/O tubal ligation S/P carpal tunnel release History of esophagogastroduodenoscopy (EGD) H/O colonoscopy H/O section History of Problems with Anesthesia: No Social History Social History Household Members: Friend(s) Household Members Other:: yes. Housing: Homeless Housing Other:: Friend's trailer Do you presently have visiting nurse or other home services: No Alcohol intake: current Alcohol intake frequency: other Alcohol type: hard liquor Comment: per patient sober for about 7 months 09/06/22 Patient Tobacco Use Status: Current everyday Tobacco user Tobacco use type: Cigarette Cigarette Packs Per Day: 1.5 Cigarettes Per Day: 10 Years Smoked: 29 e-Cigarette/Vaping Use: Never Used Second Hand Smoke Exposure: Yes Use of substances other than those prescribed or required for medical reasons: No Substance Use Type: Crack/Cocaine and Marijuana Are you DNR?: No Advance Directives: No Advance Directives Information Provided: Yes service: No Sexual orientation: Did not discuss Meds Allergies Allergy/AdvReac Type Severity Reaction Status Date / Time No Known Allergies Allergy Verified 11/25/23 12:27 Home Medications ?Medication ?Instructions ?Recorded ?Confirmed ?Last Taken ?Type cariprazine 4.5 mg capsule 4.5 mg PO DAILY 06/25/23 11/25/23 11/24/23 History (Vraylar) bupropion HCl 300 mg 24 hr tablet, 300 mg PO DAILY 09/06/23 11/25/23 11/24/23 History extended release disulfiram 250 mg tablet 250 mg PO DAILY 09/06/23 11/25/23 11/24/23 History lamotrigine 200 mg tablet 200 mg PO DAILY 09/06/23 11/25/23 11/24/23 History trazodone 150 mg tablet 75 mg PO BEDTIME 10/11/23 11/25/23 11/24/23 History Exam Exam Date and Time: November 25, 2023 1320 Height,Weight and Vital Signs: Height 5 ft 1 in Weight 64.41 kg Vital Signs Temperature 97.1 F 11/25/23 12:34 Pulse Rate 78 11/25/23 12:34 Respiratory Rate 16 11/25/23 12:34 Blood Pressure 113/77 11/25/23 12:34 Pulse Oximetry 98 11/25/23 12:34 Oxygen Delivery Method Room Air 11/25/23 12:34 Temperature 97.1 F 11/25/23 12:34 Pulse Rate 78 11/25/23 12:34 Respiratory Rate 16 11/25/23 12:34 Blood Pressure 113/77 11/25/23 12:34 Pulse Oximetry 98 11/25/23 12:34 Oxygen Delivery Method Room Air 11/25/23 12:34 Airway Mallampati Class: I TM Dist: >3cm Neck ROM: Full Denture: Upper Heart: S1S2 Lungs: CTAB Assessment and Plan Assessment Anesthesia Assessment: Anesthesia Plan Discussed and Chart Reviewed Final Anesthetic Review Family History of Problems with Anesthesia: No History of Problems with Anesthesia: No NPO: Yes ASA Class: III Final Preanesthetic Review: No Changes in Pt Med Stat, Meds/Allgs Chart Reviewed, Consent Obtained/Reviewed and Anes Risks/Benef Reviewed Patient Risk: Intermediate Procedure Risk: Low Anesthetic Plan Anesthetic Plan: MAC: and Agree w/ Assess. and Plan Disposition: Standard PACU
--- NOTE | 2023-11-25 13:48 | MHC.SHP ---
Pre-Procedural Eval Section A - 24 Hr Update-Section A only Date of Service: 11/25/23 Section B - Complete if H&P > 30 days Chief Complaint: Gastro-esophageal reflux disease without esophagit Details of Present Illness: Cocaine abuse Alcohol dependence Fibromyalgia Chronic post-traumatic stress disorder (PTSD) Depression Alcohol abuse Surgical History (Reviewed 09/06/23 @ 15:07 by Odalis Lee [facility]) S/P carpal tunnel release History of esophagogastroduodenoscopy (EGD) H/O colonoscopy H/O section Allergies: Allergies Allergy/AdvReac Type Severity Reaction Status Date / Time No Known Allergies Allergy Verified 11/25/23 12:27 Review of Systems Review of Systems Comment: Ten point ROS negative Exam Exam Comment: Gen appear: No acute distress HEENT: no icterus Chest: No overt resp distress Abd: soft, nontender, nondistended Psych: Stable affect, answering questions appropriately Neuro: A/Ox3 noted to move all extremities spontaneously Ext: no peripheral edema Plan Diagnosis/Plan: Unchanged I have reviewed the history and physical and performed a pertinent physical examination on my patient. No changes have occurred unless specified. Time Spent With Patient Time: Total time managing care of this patient today ____ minutes.
--- NOTE | 2023-11-25 13:49 | P.OP_ITS ---
Operative Note Operative Note Date of Service: 11/25/23 Narrative: Procedure: Esophagogastroduodenoscopy Endoscopist: Maureen Schroeder MD Indication: GERD, dysphagia Anesthesia Provider: Pushpa Hodgson CRNA Anesthesia Type: MAC ?? EGD Procedure:?? The procedure, indications, preparation and potential complications were reviewed with the patient, who indicated understanding and gave written informed consent to proceed. A physical exam was performed. The endoscope was introduced through the mouth, and advanced to the second part of duodenum. The mucosa was carefully examined on slow withdrawal of the endoscope. The patient tolerated the procedure well. There were no immediate complications.? ? EGD Findings:? * Esophagus:? Normal mucosa noted in the entire esophagus. The Z line was at 36 cm. No stricture or Schatzki's ring was noted on exam. * Stomach:? Normal mucosa was noted in the stomach. Random gastric biopsies were taken to rule out H Pylori infection. Retroflexion in the cardia was performed. * Duodenum:? Normal mucosa was noted in the whole of the examined duodenum. Additional intervention: A through the scope [employer] esophageal balloon was passed through the biopsy channel and advanced to the GE junction. This was then incrementally inflated from 15 mm to 18 mm. The balloon was then dragged up to the upper esophagus, without any resistance. On relook, no tear or heme was noted. ? EGD Impressions:? * Normal esophagus (dilation) * Normal stomach (biopsy) * Normal duodenum ?? Recommendations:?? * Follow biopsy results. Our office will call or send a letter with results within 7-10 days. * No evidence of stricture or narrowing, but empiric dilation was performed given barium swallow findings. * If H pylori +, patient will be prescribed eradication therapy followed by test of cure. * Avoid NSAIDs and smoking Above has been reviewed with the patient.
[2023-11-25 14:07] VITALS: BP 115/75; PULSE 79; RESP 16; TEMP 36.8; O2SAT 97
[2023-11-25 14:22] VITALS: BP 120/82; PULSE 82; RESP 16; O2SAT 99
[2023-11-25 14:38] VITALS: BP 131/87; PULSE 85; RESP 18; TEMP 36.6; O2SAT 99
== END 2023-11-25 15:24 | disposition home or self-care (01) ==
PROVIDERS: PCP Hospitalist; Visit Provider Internal Medicine
PROC: 0DJ08ZZ Inspection of Upper Intestinal Tract, Via Natural or Artificial Opening Endoscopic (ICD-10-PCS; CPT 43235; principal; 2023-11-25 15:40)
DX: K21.9 Gastro-esophageal reflux disease without esophagitis (principal); R13.19 Other dysphagia; K31.819 Angiodysplasia of stomach and duodenum without bleeding; K29.50 Unspecified chronic gastritis without bleeding; K59.01 Slow transit constipation; F43.12 Post-traumatic stress disorder, chronic; M79.7 Fibromyalgia; F32.A Depression, unspecified; Z79.899 Other long term (current) drug therapy; F10.20 Alcohol dependence, uncomplicated; F14.10 Cocaine abuse, uncomplicated; F17.210 Nicotine dependence, cigarettes, uncomplicated; Z98.890 Other specified postprocedural states; Z59.01 Sheltered homelessness
CPT/HCPCS: 43249; 43239; 88305; 88313; 88342; C1726; J1596; J2704

== ENCOUNTER → 2023-11-25 12:17 | Outpatient (BNV) | payer OTHER, SELFPAY | PROVIDERS: PCP Hospitalist; Visit Provider Internal Medicine | DX: R13.10 Dysphagia, unspecified (principal); K21.9 Gastro-esophageal reflux disease without esophagitis | CPT/HCPCS: 43239 ==

== ENCOUNTER 2023-12-08 10:51 | Outpatient (REF) | payer OTHER, SELFPAY | END 2023-12-08 10:52 | disposition home or self-care (01) | LOC: HO.LAB 10:51 | PROVIDERS: PCP Hospitalist; Visit Provider Nurse Practitioner Family | DX: K21.9 Gastro-esophageal reflux disease without esophagitis (principal); K59.01 Slow transit constipation; R13.19 Other dysphagia | CPT/HCPCS: 36415; 86003; 99212 ==

== ENCOUNTER 2023-12-08 10:51 | Outpatient (AMB) | payer OTHER, SELFPAY ==
[2023-12-08 11:09] VITALS: BP 141/83; PULSE 86; BMI 25.1
--- NOTE | 2023-12-08 11:09 | A.OFFVIS_ITS ---
Vital Signs 12/08/23 11:09 Height 5 ft 2 in Weight 137 lb 2.04 oz BMI 25.1 BP 141/83 H Blood Pressure Location Rt brachial Position Sitting Pulse 86 Intake Visit Reasons: S/P EGD; Dr. Schroeder Intake Note: Patient here to discuss EGD results. Patient c/o: mushy BM since starting senna Resident Medical Officer Required: No Allergies No Known Allergies Allergy (Verified 12/08/23 11:13) HPI HPI S/P EGD; Dr. Schroeder: Details: LAST VISIT: Chronic GERD Constipation Dysphagia Plan Patient was encouraged to increase fluid intake and activity to promote better bowel motility. Patient can continue senna and will start taking MiraLax in the morning. Continue Nexium. Avoid dietary triggers and late night snacking. Staying upright for minimal 3 hours after meals discussed with patient. Negative H pylori. Will send patient for upper endoscopy to rule out Schatzki ring, achalasia, gastritis, duodenitis, esophagitis, gastric or peptic ulcers, H pylori. I will see her after the procedure, sooner on as needed basis. Patient is agreeable to this plan and verbalizes understanding of instructions. She was given the opportunity to ask questions and all questions answered. ? Thank you for allowing me to participate in her care Medications New polyethylene glycol 3350 (Miralax) 17 grams PO DAILY 510 grams 2RF ENDOSCOPY: EGD Findings:? * Esophagus:? Normal mucosa noted in the entire esophagus. The Z line was at 36 cm. No stricture or Schatzki's ring was noted on exam. * Stomach:? Normal mucosa was noted in the stomach. Random gastric biopsies were taken to rule out H Pylori infection. Retroflexion in the cardia was performed. * Duodenum:? Normal mucosa was noted in the whole of the examined duodenum. Additional intervention: A through the scope [employer] esophageal balloon was passed through the biopsy channel and advanced to the GE junction. This was then incrementally inflated from 15 mm to 18 mm. The balloon was then dragged up to the upper esophagus, without any resistance. On relook, no tear or heme was noted. ? EGD Impressions:? * Normal esophagus (dilation) * Normal stomach (biopsy) * Normal duodenum ?? Recommendations:?? * Follow biopsy results. Our office will call or send a letter with results within 7-10 days. * No evidence of stricture or narrowing, but empiric dilation was performed given barium swallow findings. * If H pylori +, patient will be prescribed eradication therapy followed by test of cure. * Avoid NSAIDs and smoking PATHOLOGY RESULTS Diagnosis Stomach, random, biopsy: Gastric antral and body mucosa with focal minimal chronic inactive inflammation and focal features suggesting proton pump inhibitor effect; negative for H pylori, intestinal metaplasia and dysplasia TODAY'S VISIT Patient is here today for follow-up and to discuss upper endoscopy results. Upper endoscopy showed normal esophagus, normal stomach and normal duodenum. However barium swallow results showed that there is a possible inflammation in the esophagus as well as in the stomach. Patient still has dyspepsia and dysphagia. Patient denies eating late at night. Patient reports that she is eating better now that she is no longer staying at senior care. Patient is eating healthier and prepares her own meals. Patient denies any ill effects from anesthesia or procedure itself. Patient is not aware of any allergies. Biopsy was done from stomach only random biopsy, no biopsies taken from GE junction or esophagus. PFSH Medical History Cocaine abuse Alcohol dependence Fibromyalgia Chronic post-traumatic stress disorder (PTSD) Depression Alcohol abuse Surgical History (Updated 11/25/23 @ 12:38 by Nayana Paige RN) H/O tubal ligation S/P carpal tunnel release History of esophagogastroduodenoscopy (EGD) H/O colonoscopy H/O section Family History Maternal Grandmother Colon cancer Family/Other Lung cancer Social History Household Members: Friend(s) Household Members Other:: yes. Housing: Homeless Housing Other:: Friend's trailer Do you presently have visiting nurse or other home services: No Alcohol intake: current Alcohol intake frequency: other Alcohol type: hard liquor Comment: per patient sober for about 7 months 09/06/22 Patient Tobacco Use Status: Current everyday Tobacco user Tobacco use type: Cigarette Cigarette Packs Per Day: 1.5 Cigarettes Per Day: 10 Years Smoked: 29 e-Cigarette/Vaping Use: Never Used Second Hand Smoke Exposure: Yes Substance Use Type: Crack/Cocaine and Marijuana service: No Sexual orientation: Did not discuss Review of Systems Const Denies weight gain and Denies weight loss ENT Reports no additional complaints, Reports dysphagia and Denies odynophagia Card Reports no additional complaints Resp Reports no additional complaints GI Denies abdominal pain, Denies belching, Denies melena, Denies bloating, Denies change in bowel habits, Reports dysphagia, Denies excessive flatus, Reports dyspepsia, Reports heartburn, Denies diarrhea, Denies loose stools, Denies nausea, Denies odynophagia and Denies vomiting Reports no additional complaints Musc Reports no additional complaints Neuro Reports no additional complaints Psych Reports no additional complaints Endo Reports no additional complaints Physical Exam Vital Signs: Last Vital Signs Pulse 86 12/08/23 11:09 BP 141/83 H 12/08/23 11:09 BMI result Body Mass Index 25.1 Const General: healthy appearing, no acute distress and well developed Nutritional Appearance: well nourished Orientation/consciousness: patient oriented x3 Resp Effort & Inspection: normal respiratory effort, able to speak in complete sentences, no tracheal deviation and symmetric chest movement Auscultation: clear to auscultation bilaterally Cardio Rate: regular rate GI Inspection: Yes normal to inspection and No distended Palpation (GI): Soft to palpation, not firm, nontender and No hepatosplenomegaly present Auscultation: normal bowel sounds General: Yes no CVA tenderness Back/Spine/Pelvis Back: no CVA tenderness Skin General skin exam: elasticity normal, turgor normal and dry skin Neuro General: patient oriented x3 Psych Appearance: grossly normal Mental Status: mental status grossly normal Assessment & Plan Assessment & Plan (1) Chronic GERD: Code(s): K21.9 - Gastro-esophageal reflux disease without esophagitis Category: Medical (2) Constipation: Code(s): K59.00 - Constipation, unspecified Qualifiers: Constipation type: slow transit constipation Qualified Code(s): K59.01 - Slow transit constipation (3) Dysphagia: Code(s): R13.10 - Dysphagia, unspecified Qualifiers: Dysphagia type: esophageal phase Qualified Code(s): R13.19 - Other dysphagia Plan Patient continues with dysphagia. She states that she has been taking Nexium every morning. Will add famotidine at bedtime. Discussed with patient avoiding dietary triggers and late night snacking. Continue avoiding alcohol and continue avoiding smoking tobacco. Patient was encouraged to stay upright for minimum 3 hours after meals. Will send her for RAST allergen. Patient is not sure if she has any allergies. Biopsies was not taking from esophagus, however inflammation and severe reflux was seen in the esophagus on barium swallow. Patient will continue senna. Increase fluid intake and activity to promote better bowel motility. I will see patient in 3 months, sooner on as needed basis. Patient is agreeable to this plan and verbalizes understanding of instructions. She was given the opportunity to ask questions and all questions answered. Thank you for allowing me to participate in her care Orders: Orders Rast Allergen Today K21.9 - Gastro-esophageal reflux disease without esophagitis Medications: New famotidine (Pepcid) 20 mg PO BEDTIME 30 tabs 3RF K21.9 - Gastro-esophageal reflux disease without esophagitis Refilled sennosides (senna) 17.2 mg (2 x 8.6 mg) PO DAILY 90 caps 2RF Coding Level of Care Code Est Pt Level 4 (65316) Diagnoses Chronic GERD K21.9 Slow transit constipation K59.01 Constipation type: slow transit constipation Esophageal dysphagia R13.19 Dysphagia type: esophageal phase Time Spent (min) 35 Comment 20 minutes spent with patient and additional 15 minutes spent reviewing her records
== END 2023-12-08 12:11 | disposition home or self-care (01) ==
PROVIDERS: PCP Hospitalist; Visit Provider Nurse Practitioner Family
DX: K21.9 Gastro-esophageal reflux disease without esophagitis (principal); K59.01 Slow transit constipation; R13.19 Other dysphagia
CPT/HCPCS: 99214

== ENCOUNTER 2023-12-09 10:59 | Outpatient (AMB) | payer OTHER, SELFPAY ==
[2023-12-09 11:20] VITALS: BP 116/68; PULSE 79; O2SAT 99; BMI 27.1
--- NOTE | 2023-12-09 11:20 | MHC.PC.OV ---
Vital Signs 12/09/23 11:20 Height 5 ft Weight 139 lb BMI 27.1 BP 116/68 Blood Pressure Location Lt brachial Position Sitting Pulse 79 Pulse Source Pulse Oximeter Pulse Oximetry (%) 99 Oxygen Delivery Method Room Air Intake Visit Reasons: cpe Intake Note: Patient is here as a transfer of follow up on her moods. Allergies No Known Allergies Allergy (Verified 12/09/23 11:24) Medication List - Last Reconciled 12/09/23 by Dmitry Orellana MD albuterol sulfate 90 mcg/actuation (ProAir HFA) 2 puffs inhalation Q4H PRN 30 days bupropion HCl XL 300 mg PO DAILY cariprazine (Vraylar) 4.5 mg PO DAILY clonidine HCl 0.1 mg PO TID PRN 30 days disulfiram 250 mg PO DAILY 30 days disulfiram 250 mg PO DAILY esomeprazole magnesium (Nexium) 40 mg PO DAILY famotidine (Pepcid) 20 mg PO BEDTIME lamotrigine 200 mg PO DAILY polyethylene glycol 3350 (Miralax) 17 grams PO DAILY pregabalin 300 mg PO BEDTIME 30 days sennosides (senna) 17.2 mg (2 x 8.6 mg) PO DAILY trazodone 75 mg PO BEDTIME Tobacco use date assessed: 12/09/23 Dental Screening Dental Screen Date: 12/09/23 Did you have a dental visit in the last 12 months?: No Did you have a dental problem in the last 6 months where you did not have access to dental care?: No Was dental information given to patient?: Patient has dentist HPI cpe HPI Details 43 y/o female presents for an extended exam with f/u labs and health maintenance. Labs were drawn 07/21/23. Reviewed labs with pt. Triglycerides 74. TC 252. LDL 170. HDL 68. Pt reports she f/u with GI and per pt they had seen a hiatal hernia with chronic GERD. Last mammogram December of 2022. PFSH Medical History Cocaine abuse Alcohol dependence Fibromyalgia Chronic post-traumatic stress disorder (PTSD) Depression Alcohol abuse Surgical History H/O tubal ligation S/P carpal tunnel release History of esophagogastroduodenoscopy (EGD) H/O colonoscopy H/O section Family History Maternal Grandmother Colon cancer Family/Other Lung cancer Social History Household Members: Friend(s) Household Members Other:: yes. Housing: Homeless Housing Other:: Friend's trailer Do you presently have visiting nurse or other home services: No Alcohol intake: current Alcohol intake frequency: other Alcohol type: hard liquor Comment: per patient sober for about 7 months 09/06/22 Patient Tobacco Use Status: Current everyday Tobacco user Tobacco use type: Cigarette Cigarette Packs Per Day: 1.5 Cigarettes Per Day: 10 Years Smoked: 29 e-Cigarette/Vaping Use: Never Used Second Hand Smoke Exposure: Yes Substance Use Type: Crack/Cocaine and Marijuana service: No Sexual orientation: Did not discuss Questionnaire PHQ-9 Over the last 2 weeks, how often have you been bothered by any of the following problems? 1. Little interest or pleasure in doing things: several days 2. Feeling down, depressed, or hopeless: several days 3. Trouble falling or staying asleep, or sleeping too much: not at all 4. Feeling tired or having little energy: nearly every day 5. Poor appetite or overeating: not at all 6. Feeling bad about yourself - or that you are a failure or have let yourself or your family down: several days 7. Trouble concentrating on things, such as reading the newspaper or watching television: nearly every day 8. Moving or speaking so slowly that other people could have noticed. Or the opposite - being so fidgety or restless that you have been moving around a lot more than usual: nearly every day 9. Thoughts that you would be better off or of hurting yourself in some way: not at all Total score: 12 Depression Screening Interpretation: Positive Depression Screening Done: Yes 81591 - PHQ-9 Billing: Yes Source: Developed by Drs. Troy Felipe, Lucrecia Soto, Jermaine Escobar and colleagues, with an educational ez from [employer]. Thrive Questionnaire Date Thrive assessed: 12/09/23 I am a: Patient What is your living situation today?: I have a place to live, but I am worried about losing it in the future Within the past 12 months, did the food you bought not last and you didn't have the money to get more?: Never true Within the past 12 months, did you worry whether your food would run out before you got money to buy more?: Never true Do you have trouble paying for medicines?: No Do you have trouble getting transportation to medical appointments?: No Do you have trouble paying your heating and electricity bill?: No Do you have trouble taking care of your child, family member or friend?: No Do you have trouble with day-to-day activities such as bathing, preparing meals, shopping, managing finances, etc.?: Yes Are you currently unemployed and looking for a job?: No Are you interested in more education?: No THRIVE Score: 1 AUDIT C Alcohol Use Questionnaire (AUDIT-C) 1. How often do you have a drink containing alcohol?: Never 3. How often do you have six or more drinks on one occasion?: Never Total Score: 0 JOYCE-7 AMB Questionnaire JOYCE-7 Date JOYCE - 7 assessed: 12/09/23 Feeling nervous, anxious, or on edge: 0 = Not at all Not being able to stop or control worryin = Several days Worrying too much about different things: 3 = Nearly every day Trouble relaxin = Not at all Being so restless that it is hard to sit still: 3 = Nearly every day Becoming easily annoyed or irritable: 1 = Several days Feeling afraid as if something awful might happen: 0 = Not at all Total JOYCE-7 score (0-4 normal; 5-9 mild; 10-14 moderate; 15-21 severe): 8 Source: Developed by Drs. Troy Felipe, Lucrecia Soto, Jermaine Escobar and colleagues, with an educational ez from [employer]. JOYCE-7 Assessment Billing JOYCE-7 Assessment Tool: JOYCE-7 Assessment 40871 Review of Systems Const Denies chills, Denies fatigue, Denies fever(s), Denies headache(s) and Denies weakness Eyes Denies change in vision ENT Denies dizziness, Denies headache(s), Denies hearing loss, Denies nasal congestion, Denies sinus pain, Denies sinus pressure and Denies sore throat Card Denies chest pain, Denies lightheadedness, Denies dyspnea and Denies other (palpitations) Resp Denies cough, Denies dyspnea and Denies wheezing GI Denies abdominal pain, Denies melena, Denies hematochezia, Denies change in bowel habits, Denies dyspepsia and Denies nausea Denies hematuria and Denies dysuria Musc Denies abnormal gait, Denies myalgias, Denies arthralgias, Denies numbness and Denies tingling Skin/Breast Denies rash, Denies unusual bruising and Denies wounds Neuro Denies abnormal gait, Denies dizziness, Denies headache(s), Denies memory loss, Denies numbness, Denies Sensory deficit (Neuro), Denies tingling and Denies weakness Psych Reports anxiety, Reports depression and Denies memory loss Endo Denies cold intolerance, Denies fatigue, Denies heat intolerance, Denies polydipsia and Denies polyuria Edison/Lymph Denies easy bleeding and Denies easy bruising Aller/Immun Denies wheezing Physical exam (Primary Care) Vital Signs: Last Vital Signs Pulse 79 12/09/23 11:20 BP 116/68 12/09/23 11:20 Pulse Ox 99 12/09/23 11:20 Oxygen Delivery Method Room Air 12/09/23 11:20 BMI result Body Mass Index 27.1 Tobacco/Smoking Status: Tobacco use Status Tobacco use date assessed 12/09/23 12/09/23 11:33 Patient Tobacco Use Status Current everyday Tobacco 12/09/23 11:20 Tobacco use type Cigarette 12/09/23 11:20 e-Cigarette/Vaping Use Never Used 12/09/23 11:20 PHQ-9: PHQ-9 Score PHQ-9: Total score 12 12/09/23 11:33 Depression Screening Interpretation: Positive Thrive Assessment: Date of Thrive Assessment Date Thrive assessed 12/09/23 12/09/23 11:33 Const General: no acute distress, well developed, alert and awake Nutritional Appearance: well nourished Orientation/consciousness: patient oriented x3 HENMT Head: Yes normocephalic and Yes atraumatic Ears: hearing grossly normal bilaterally and TM's normal bilaterally General nose exam: Normal external nose present and Normal nares present Mouth: Normal oral and palatal mucosa present and moist mucous membranes Teeth and gingiva: dentition normal Throat: Yes posterior oropharynx normal Eyes General: appearance normal, both eyes and all related structures Pupils: Equal, round and reactive pupils present and Pupil accommodation reflex normal EOM: EOMs intact bilaterally Neck Neck: Yes normal visual inspection, Yes no lymphadenopathy and Yes trachea midline Thyroid: Thyroid normal Carotids: no bruits Lymphatic: no lymphadenopathy noted Chest Chest palpation & inspection: normal inspection of the chest Resp Effort & Inspection: normal respiratory effort Auscultation: clear to auscultation bilaterally Cardio Rate: regular rate Rhythm: regular rhythm Heart sounds: S1 normal heart sound present, S2 normal heart sound present, no gallops, no murmurs and no rubs Bruits: no abdominal aortic bruits and no carotid bruits GI Palpation (GI): No Abdominal aortic bruit present, Soft to palpation, nontender, No hepatosplenomegaly present and No Rebound tenderness present Auscultation: normal bowel sounds General: Yes no CVA tenderness Back/Spine/Pelvis Back: no CVA tenderness Cervical Spine: cervical ROM normal and No Cervical spine tenderness Thoracic/Lumbar Spine: thoraco-lumbar ROM normal, No pain with thoraco-lumbar ROM, No thoracic spinal tenderness and No lumbar spinal tenderness Skin Lesions: no lesions Rashes: no rashes Trauma: no lacerations or abrasions Wounds: no wounds Nails: normal Neuro General: patient oriented x3 Cranial nerves: Yes Equal, round and reactive pupils present Cognition (Neuro): normal cognition Gait exam (Neuro): Normal gait present Motor exam (neuro): 5/5 motor strength present throughout Sensory Exam: No Sensory deficit (Neuro) Deep tendon reflexes (DTR's): Right patellar reflex intensity grade: 2+ and Left patellar reflex intensity grade: 2+ Extrem General: Yes normal to inspection and No edema Psych Appearance: grossly normal Affect: normal affect Attitude: cooperative Thought process: Normal thought process present Assessment and Plan Assessment & Plan (1) Hypercholesterolemia: Code(s): E78.00 - Pure hypercholesterolemia, unspecified Plan: Lipids?were?high?at?last?check. 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 (5) Screening for colon cancer: Code(s): Z12.11 - Encounter for screening for malignant neoplasm of colon Plan: Follow-up?with?GI (6) Breast cancer screening by mammogram: Code(s): Z12.31 - Encounter for screening mammogram for malignant neoplasm of breast Plan: Mammogram?in?May?recommended?additional?images?but?patient?did?not?get?these?done. I?have?asked?the?office?staff?to?give?her?the?phone?number?for?[facility]?so?she?can?call?them. Strongly?recommended?she?follow-up?with?them. (7) Screening for cervical cancer: Code(s): Z12.4 - Encounter for screening for malignant neoplasm of cervix Plan: Has?not?had?a?Pap?smear?recently.??Referred?to?on air host (8) Chronic post-traumatic stress disorder (PTSD): Code(s): F43.12 - Post-traumatic stress disorder, chronic Plan: As?above, patient?may?require?disability?forms.??Awaiting?forms?from?patient?and?her?hobbing press operator (9) MDD (major depressive disorder), recurrent episode, moderate: Code(s): F33.1 - Major depressive disorder, recurrent, moderate Plan: As?above (10) Normal physical exam: Code(s): Z00.00 - Encounter for general adult medical examination without abnormal findings Plan: 43-year-old?female?presents?for?extended?exam Orders: Referrals [employer] Referral Z12.4 - Encounter for screening for malignant neoplasm of cervix Coding Level of Care Code Est Pt Level 4 (12660) Diagnoses Hypercholesterolemia E78.00 Chronic GERD K21.9 Hiatal hernia K44.9 Fibromyalgia M79.7 Screening for colon cancer Z12.11 Breast cancer screening by mammogram Z12.31 Screening for cervical cancer Z12.4 Chronic post-traumatic stress disorder (PTSD) F43.12 MDD (major depressive disorder), recurrent episode, moderate F33.1 Normal physical exam Z00.00 Additional Codes JOYCE-7 Assessment Billing - JOYCE-7 Assessment Tool: JOYCE-7 Assessment 31065 ([id number])
== END 2023-12-09 12:15 | disposition home or self-care (01) ==
PROVIDERS: PCP Hospitalist; Visit Provider Family Medicine
DX: Z00.00 Encounter for general adult medical examination without abnormal findings (principal); E78.00 Pure hypercholesterolemia, unspecified; F33.1 Major depressive disorder, recurrent, moderate; K21.9 Gastro-esophageal reflux disease without esophagitis; K44.9 Diaphragmatic hernia without obstruction or gangrene; M79.7 Fibromyalgia; Z12.11 Encounter for screening for malignant neoplasm of colon; Z12.31 Encounter for screening mammogram for malignant neoplasm of breast; F43.12 Post-traumatic stress disorder, chronic
CPT/HCPCS: 99396

== ENCOUNTER 2024-05-22 15:26 | Outpatient (REF) | payer OTHER, SELFPAY ==
[2024-05-22 17:01] LABS: Hematocrit 34.7 % (37.0-47.0); Hemoglobin 11.2 g/dl (12.0-16.0); Mean Corpuscular HGB Conc 32.3 g/dl (31.0-35.0); Mean Corpuscular Hemoglobin 27.4 pg (27.0-33.0); Mean Corpuscular Volume 84.8 fL (80.0-98.0); Mean Platelet Volume 10.2 fL (9.4-12.3); Platelet Count 253 X10*3/uL (160-400); Red Blood Count 4.09 X10*6/uL (4.20-5.50); White Blood Count 10.1 X10*3/uL (4.8-10.8)
[2024-05-22 17:49] LABS: HCG Quantitative < 2 mIU/mL; TSH reflex Free T4 0.59 uIU/mL (0.32-4.0)
[2024-05-22 18:33] LABS: CT PCR NOT DETECTED (Not Detect.); NG PCR NOT DETECTED (Not Detect.)
[2024-05-23 19:53] LABS: Lutenizing Hormone 2.7 mIU/mL; Prolactin 20.3 ng/mL
== END 2024-05-22 15:27 | disposition home or self-care (01) ==
LOC: HO.LAB 15:26
PROVIDERS: PCP Family Medicine; Visit Provider Obstetrics & Gynecology
DX: Z01.419 Encounter for gynecological examination (general) (routine) without abnormal findings (principal); N93.9 Abnormal uterine and vaginal bleeding, unspecified; R92.8 Other abnormal and inconclusive findings on diagnostic imaging of breast
CPT/HCPCS: 83001; 83002; 84146; 84443; 84702; 85027; 87491; 87591; 99386

== ENCOUNTER 2024-05-22 15:26 | Outpatient (AMB) | payer OTHER, SELFPAY ==
--- NOTE | 2024-05-22 15:31 | MHC.OFFVIS ---
Vital Signs 05/22/24 15:32 Height 5 ft Weight 124 lb BMI 24.2 Intake Visit Reasons: new patient Annual/DO NOT RS [place] [employer] Driving Required: No Information Interpreted: non-clinical & clinical Animal Sticker: Animal Sticker Present (Heather LUNA) Accompanied by: Self / Same As Patient Allergies No Known Allergies Allergy (Verified 05/22/24 15:33) Is last menstrual period known: Yes HPI Comments Details: Presenting for annual exam. Complaining of intermenstrual spotting for the last 4 months no associated symptoms. Last Pap/HPV? Last Mammogram was done at [facility] 01/05 was BI-RADS 4, no follow-up was done by the patient [facility] Medical History Cocaine abuse Alcohol dependence Fibromyalgia Chronic post-traumatic stress disorder (PTSD) Depression Alcohol abuse Surgical History H/O tubal ligation S/P carpal tunnel release History of esophagogastroduodenoscopy (EGD) H/O colonoscopy H/O section Family History Maternal Grandmother Colon cancer Family/Other Lung cancer Social History Household Members: Friend(s) Household Members Other:: yes. Housing: Homeless Housing Other:: Friend's trailer Do you presently have visiting nurse or other home services: No Alcohol intake: current Alcohol intake frequency: other Alcohol type: hard liquor Comment: per patient sober for about 7 months 09/06/22 Patient Tobacco Use Status: Current everyday Tobacco user Tobacco use type: Cigarette Cigarette Packs Per Day: 1.5 Cigarettes Per Day: 10 Years Smoked: 29 e-Cigarette/Vaping Use: Never Used Second Hand Smoke Exposure: Yes Substance Use Type: Crack/Cocaine and Marijuana service: No Sexual orientation: Did not discuss Female Reproductive History Menstrual control method: permanent sterilization Total pregnancies: 3 Full term: 2 Number of Living Children: 1 Date of Mammogram: 12/30/22 Review of Systems Const All systems reviewed & are unremarkable except as noted in HPI and below Card Reports as per HPI Resp Reports as per HPI GI Reports as per HPI and Reports no additional complaints Reports as per HPI Physical Exam Vital Signs: BMI result Body Mass Index 24.2 Const General: cooperative, healthy appearing and comfortable Chest Chest palpation & inspection: normal inspection of the chest and normal palpation of entire chest wall Breast/axilla inspection: normal inspection of the axillae Breast/axilla palpation: normal palpation of the breasts (Left breast cyst at 05:00 o'clock 4 cm from the nipple), normal palpation of the axillae and no axillary lymphadenopathy Resp Effort & Inspection: normal respiratory effort Auscultation: clear to auscultation bilaterally Percussion: percussion normal Cardio Palpation: normal PMI Rate: regular rate Rhythm: regular rhythm Heart sounds: no murmurs and no rubs Peripheral pulses: Peripheral pulses 2+ throughout GI Inspection: Yes normal to inspection Palpation (GI): Soft to palpation, nontender, no guarding, not rigid and No hepatosplenomegaly present Percussion: Yes normal to percussion Auscultation: normal bowel sounds Rectal Exam - Female: deferred General: Yes bladder normal to palpation External Female Exam: No lesion Speculum Exam - Vagina: normal appearance of the vagina, normal palpation, normal vaginal discharge and not erythematous Speculum Exam - Cervix: normal appearance of the cervix and normal palpation Bimanual exam- vagina & uterus: normal bimanual exam, normal palpation, uterine size normal, bladder normal to palpation, consistency normal and normal palpation Bimanual Exam- Adnexa, other: normal adnexae, no masses and no tenderness Assessment & Plan Assessment & Plan (1) Well woman exam: Code(s): Z01.419 - Encounter for gynecological examination (general) (routine) without abnormal findings Category: Medical Plan: Cotesting done. Counseled the patient about the recommended dietary allowance of 1000 mg of Calcium & 600 IU of vitamin D. Referral to GI for screening colonoscopy placed The patient was instructed to perform monthly self-breast exams and to schedule an annual exam in a year; All questions answered and the patient verbalized understanding. Instructed the patient to schedule annual exam in a year (2) Abnormal uterine bleeding: Code(s): N93.9 - Abnormal uterine and vaginal bleeding, unspecified Category: Medical Plan: Co testing done, GC and chlamydia taken CBC, TSH, prolactin, HCG, and pelvic ultrasound ordered. Discussed with the patient the different causes of abnormal bleeding including thyroid disorders, uterine and ovarian pathology, endometrial hyperplasia, carcinoma and other potential causes. Discussed with the patient the work up including CBC (to r/o anemia), TSH, prolactin, pelvic Ultrasound, endometrial biopsy to r/o endometrial pathology. All questions answered and the patient verbalized understanding. Instructed the patient to schedule an appointment for an endometrial biopsy in 2 weeks. (3) Abnormal mammogram of left breast: Comment: Left breast 4 cm from the nipple between 5 o'clock 01/05 Code(s): R92.8 - Other abnormal and inconclusive findings on diagnostic imaging of breast Category: Medical Plan: Discussed with the patient the results of the previous mammogram done at [facility] in 01/05, BI-RADS 4 being suspicious , requires further management dawson. Will repeat bilateral diagnostic breast mammogram and left breast ultrasound and refer to general surgery office. Appointment scheduled on 05/26 at 10:[address] Block, patient is aware the patient verbalized understanding especially the urgency of her clinical situation and agreed with the plan Orders: Orders MM tomosynthesis diagnostic BI Today R92.8 - Other abnormal and inconclusive findings on diagnostic imaging of breast US breast LT complete Today R92.8 - Other abnormal and inconclusive findings on diagnostic imaging of breast Prolactin Today N93.9 - Abnormal uterine and vaginal bleeding, unspecified TSH reflex Free T4 Today N93.9 - Abnormal uterine and vaginal bleeding, unspecified Lutenizing Hormone Today N93.9 - Abnormal uterine and vaginal bleeding, unspecified MM tomosynthesis screening BI Today Z12.31 - Encounter for screening mammogram for malignant neoplasm of breast HCG Quantitative Today N93.9 - Abnormal uterine and vaginal bleeding, unspecified Complete Blood Count no Diff Today N93.9 - Abnormal uterine and vaginal bleeding, unspecified US pelvic and transvaginal Today N93.9 - Abnormal uterine and vaginal bleeding, unspecified Follicle Stimulating Hormone Today N93.9 - Abnormal uterine and vaginal bleeding, unspecified Referrals Gastroenterology Referral Z12.11 - Encounter for screening for malignant neoplasm of colon General Surgery Referral R92.8 - Other abnormal and inconclusive findings on diagnostic imaging of breast Coding Level of Care Code New Pt Prev Care 40-64y(04046) Diagnoses Well woman exam Z01.419 Abnormal uterine bleeding N93.9 Abnormal mammogram of left breast R92.8
[2024-05-22 15:32] VITALS: BMI 24.2
== END 2024-05-22 16:11 | disposition home or self-care (01) ==
PROVIDERS: PCP Family Medicine; Visit Provider Obstetrics & Gynecology
DX: Z01.419 Encounter for gynecological examination (general) (routine) without abnormal findings (principal); N93.9 Abnormal uterine and vaginal bleeding, unspecified; R92.8 Other abnormal and inconclusive findings on diagnostic imaging of breast
CPT/HCPCS: 99386

== ENCOUNTER 2024-05-22 16:07 | Outpatient (REF) | payer OTHER, SELFPAY ==
[2024-05-25 06:43] LABS: HPV mRNA E6/E7 Detected (Not Detected)
== END 2024-05-22 16:08 | disposition home or self-care (01) ==
LOC: HO.LNP 16:07
PROVIDERS: Visit Provider Obstetrics & Gynecology
DX: Z01.419 Encounter for gynecological examination (general) (routine) without abnormal findings (principal); N93.9 Abnormal uterine and vaginal bleeding, unspecified; R87.610 Atypical squamous cells of undetermined significance on cytologic smear of cervix (ASC-US)
CPT/HCPCS: 87624; 88175

== ENCOUNTER 2024-05-30 13:57 | Outpatient (REF) | payer OTHER, SELFPAY ==
--- NOTE | ~2024-05-30 | US_ITS ---
EXAMINATION: US PELVIS CLINICAL INFORMATION: Abnormal uterine and vaginal bleeding COMPARISON: None available. TECHNIQUE: Ultrasound of the pelvis is performed using both transabdominal and transvaginal transducers along with Doppler. Transvaginal imaging is performed due to inadequate visualization transabdominally. FINDINGS: Uterus: The uterus is anteverted and measures 8.1 x 4.6 x 5.5 cm. The double wall endometrial thickness is 3 mm. The uterus is smooth in contour and has normal myometrial echogenicity. No visible fibroid. Multiple nabothian cysts are present in the cervix the largest measures 1.6 cm and is complex. Adnexa: The left ovary was not visualized. The right ovary measures 2.8 x 1.5 x 3.0 cm for a volume of 6.8 cc and appears unremarkable. There is no free intraperitoneal fluid. US/US pelvic and transvaginal IMPRESSION: Negative exam. Left ovary not visualized. Electronically signed by: Lincoln White MD 07/29/2024 01:33 PM [facility]
== END 2024-05-30 13:58 | disposition home or self-care (01) ==
LOC: HO.US 13:57
PROVIDERS: PCP Family Medicine; Visit Provider Obstetrics & Gynecology
DX: N93.9 Abnormal uterine and vaginal bleeding, unspecified (principal)
CPT/HCPCS: 76830; 76856

== ENCOUNTER 2024-06-02 11:31 | Outpatient (AMB) | payer OTHER, SELFPAY ==
--- NOTE | 2024-06-02 11:37 | MHC.OFFVIS ---
Vital Signs 06/02/24 11:49 Height 5 ft Weight 124 lb 6 oz BMI 24.3 BP 142/67 H Blood Pressure Location Lt brachial Position Sitting Pulse 95 Intake Visit Reasons: Breast lump Intake Note: Patient is seen in office for evaluation of an abnormal mm of the left breast. 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 Present Accompanied by: Self / Same As Patient Allergies No Known Allergies Allergy (Verified 06/06/24 16:46) Medication List - Last Reconciled 06/07/24 by Marcial Block MD albuterol sulfate 90 mcg/actuation 2 puffs inhalation Q4H PRN 30 days bupropion HCl XL 300 mg PO DAILY cariprazine (Vraylar) 4.5 mg PO DAILY clonidine HCl 0.1 mg PO TID PRN 30 days duloxetine (Cymbalta) 20 mg PO BID 30 days esomeprazole magnesium (Nexium) 40 mg PO DAILY ferrous sulfate 325 mg PO DAILY 90 days hydroxyzine HCl 10 mg PO BID lamotrigine 200 mg PO DAILY meloxicam 15 mg PO DAILY 30 days polyethylene glycol 3350 (Miralax) 17 grams PO DAILY pregabalin 300 mg PO BEDTIME 30 days sennosides (senna) 17.2 mg (2 x 8.6 mg) PO DAILY trazodone 75 mg PO BEDTIME HPI Comments Details: 44-year-old female patient presenting for evaluation of a breast lump in the left breast. She reports severe pain with palpation especially in the upper outer and lower outer quadrant. She denies a previous history of breast problems or breast surgery. Her family history is negative for breast cancer. She currently smokes a proximally 1.5 packs per day of cigarettes. A previous mammogram performed on 12/30/2022 at [facility] revealed a probable cystic mass possibly a benign cyst in the lower outer left breast confirmed by ultrasound on the same date. Although this was felt to be possibly due to a cyst it was felt to be suspicious and an ultrasound-guided core biopsy or aspiration was recommended. She apparently never underwent an aspiration at [facility]. A follow-up mammogram and ultrasound has been ordered by Dr. Godoy is pending at this time. She is and breastfed her children for short time. [facility] Medical History Cocaine abuse Alcohol dependence Fibromyalgia Chronic post-traumatic stress disorder (PTSD) Depression Alcohol abuse Surgical History H/O tubal ligation S/P carpal tunnel release History of esophagogastroduodenoscopy (EGD) H/O colonoscopy H/O section Family History Maternal Grandmother Colon cancer Family/Other Lung cancer Family/Other Breast cancer, Onset Age: 49 Social History Household Members: Friend(s) Household Members Other:: yes. Housing: Homeless Housing Other:: Friend's trailer Do you presently have visiting nurse or other home services: No Alcohol intake: current Alcohol intake frequency: other Alcohol type: hard liquor Comment: per patient sober for about 7 months 09/06/22 Patient Tobacco Use Status: Current everyday Tobacco user Tobacco use type: Cigarette Cigarette Packs Per Day: 1.5 Cigarettes Per Day: 10 Years Smoked: 29 Packs Per Year: 44 Packs per year/per ci.50 e-Cigarette/Vaping Use: Never Used Second Hand Smoke Exposure: Yes Substance Use Type: Crack/Cocaine and Marijuana service: No Sexual orientation: Did not discuss Female Reproductive History Menstrual Age of Menarche: 12 Date of last menstrual period: 06/02/24 Total pregnancies: 3 Number of Living Children: 2 Review of Systems Const All systems reviewed & are unremarkable except as noted in HPI and below Denies chills, Denies fever(s), Denies headache(s), Denies poor appetite and Denies weakness ENT Denies headache(s) Card Denies chest pain, Denies irregular heart rhythm, Denies palpitations and Denies dyspnea Resp Denies cough, Denies excessive phlegm production and Denies dyspnea GI Denies abdominal pain, Denies bloating, Denies change in bowel habits, Denies constipation, Denies heartburn, Denies diarrhea, Denies nausea and Denies vomiting Denies urinary frequency Musc Denies back pain, Denies muscle weakness and Denies numbness Skin/Breast Denies changing lesions and Denies unusual bruising Neuro Denies headache(s), Denies numbness, Denies paresthesias and Denies weakness Psych Denies anxiety and Denies depression Endo Denies palpitations Edison/Lymph Denies lymphadenopathy Physical Exam Vital Signs: Last Vital Signs Pulse 95 06/02/24 11:49 BP 142/67 H 06/02/24 11:49 BMI result Body Mass Index 24.3 Const General: cooperative and no acute distress Nutritional Appearance: well nourished Orientation/consciousness: patient oriented x3 Limitations: no limitations HEENT Head: Yes normocephalic and Yes atraumatic Ears: hearing grossly normal bilaterally Chest Other: Bilateral fibrocystic changes noted with increased tenderness especially in the left lower outer portion of the breast. Left breast: No skin change, no nipple retraction, no nipple discharge, no palpable mass, no enlarged lymph nodes. Right breast: No skin change, no nipple retraction, no nipple discharge, no palpable mass, no enlarged lymph nodes Resp Effort & Inspection: normal respiratory effort, no audible wheezes, no cough and no respiratory distress Cardio Jugular venous distension: no JVD GI Inspection: Yes normal to inspection Skin Other: Warm, dry, no rash Neuro General: patient oriented x3 Extrem General: Yes no clubbing, cyanosis or edema Assessment & Plan Assessment & Plan (1) Abnormal ultrasound: Code(s): R93.89 - Abnormal findings on diagnostic imaging of other specified body structures Category: Medical Plan Patient with a previous history of an abnormal finding by mammogram and ultrasound in the left breast and follow-up studies are pending. We will attempt to expedite the studies. Recommended the patient follow-up after the mammogram and ultrasound. An ultrasound-guided core biopsy would be recommended if the cystic finding remains. The patient expressed understanding and agrees with the plan. Coding Level of Care Code New Pt Level 4 (19386) Diagnoses Abnormal ultrasound R93.89
[2024-06-02 11:49] VITALS: BP 142/67; PULSE 95; BMI 24.3
== END 2024-06-02 12:11 | disposition home or self-care (01) ==
PROVIDERS: PCP Family Medicine; Visit Provider Surgery
DX: R93.89 Abnormal findings on diagnostic imaging of other specified body structures (principal)
CPT/HCPCS: 99204

== ENCOUNTER → 2024-06-02 11:31 | Outpatient (BNVA) | payer OTHER, SELFPAY | PROVIDERS: PCP Family Medicine; Visit Provider Surgery | DX: R93.89 Abnormal findings on diagnostic imaging of other specified body structures (principal); N64.4 Mastodynia; Z59.01 Sheltered homelessness | CPT/HCPCS: 99202 ==

== ENCOUNTER 2024-06-05 13:10 | Outpatient (AMB) | payer OTHER, SELFPAY ==
--- NOTE | 2024-06-05 13:11 | MHC.OFFVIS ---
Vital Signs 06/05/24 13:20 Height 5 ft Weight 123 lb 7.342 oz BMI 24.1 Intake Visit Reasons: EMB/colpo Software Recruiter Required: No Information Interpreted: non-clinical & clinical Pharmacy Technician Infusion: Pharmacy Technician Infusion Present (Heather LUNA) Accompanied by: Self / Same As Patient Allergies No Known Allergies Allergy (Verified 06/05/24 13:21) Is last menstrual period known: Yes Last menstrual period: 05/27/24 HPI Comments Details: Presenting for EMB and colposcopy/biopsy/ECC for ascus/HPV positive PFSH Medical History Cocaine abuse Alcohol dependence Fibromyalgia Chronic post-traumatic stress disorder (PTSD) Depression Alcohol abuse Surgical History H/O tubal ligation S/P carpal tunnel release History of esophagogastroduodenoscopy (EGD) H/O colonoscopy H/O section Family History (Updated 06/02/24 @ 11:49 by CHERYL Gordon) Maternal Grandmother Colon cancer Family/Other Lung cancer Family/Other Breast cancer, Onset Age: 49 Social History Household Members: Friend(s) Household Members Other:: yes. Housing: Homeless Housing Other:: Friend's trailer Do you presently have visiting nurse or other home services: No Alcohol intake: current Alcohol intake frequency: other Alcohol type: hard liquor Comment: per patient sober for about 7 months 09/06/22 Patient Tobacco Use Status: Current everyday Tobacco user Tobacco use type: Cigarette Cigarette Packs Per Day: 1.5 Cigarettes Per Day: 10 Years Smoked: 29 e-Cigarette/Vaping Use: Never Used Second Hand Smoke Exposure: Yes Substance Use Type: Crack/Cocaine and Marijuana service: No Sexual orientation: Did not discuss Female Reproductive History Menstrual Age of Menarche: 12 Date of last menstrual period: 05/27/24 Review of Systems Const All systems reviewed & are unremarkable except as noted in HPI and below Reports as per HPI and Reports no additional complaints GI Reports no additional complaints Reports no additional complaints Physical Exam Vital Signs: BMI result Body Mass Index 24.1 Office Procedures Colposcopy Colposcopy: Pre-Procedure Counseling: Before beginning the procedure, I conducted comprehensive counseling with the patient. We thoroughly discussed the procedure itself, including its details, alternatives, and all associated risks. This included but not limited to the following complications such as bleeding, infection, and injury to the vagina, bladder, and vessels, as well as the potential need for transfusion with all its associated risks. Subsequently, the patient sign the consent. Pap smear result: ASCUS HPV positive. Urine test in office = Negative Procedure: During the procedure, the following steps were performed: A speculum was inserted, and acetic acid was applied. Colposcopy was conducted, allowing visualization of the transformation zone. Acetowhite lesions were identified at the 11+12+1 o'clock position. Cervical biopsies were obtained from the 11+12+1 o'clock position, followed by an endocervical curettage (ECC). Vaginoscopy of the upper vagina revealed no evidence of aceto-white lesions. Hemostasis was achieved using Monsel solution, and the patient tolerated the procedure well. Post-Procedure Instructions: The patient was advised to promptly contact the office or the after hours answering service or go to the emergency room if experiencing a temperature exceeding 100.4?F, abdominal pain, nausea/vomiting, or bleeding. Additionally, the patient was instructed to abstain from vaginal intercourse and bathtub use. The patient confirmed understanding of these instructions. Discharge Instructions: The patient was instructed to schedule a follow-up appointment in 2 weeks for further evaluation and management. Please note that this note was generated using a voice recognition program, and errors may have occurred during veterinary surgery technician. 70488-[id number] of cervix including upper vagina with biopsy and ECC Procedure code (CPT) selection complete Endometrial Biopsy Details: The patient was counseled regarding the indication and benefits of endometrial sampling to rule out endometrial pathology including not limited to endometrial hyperplasia or endometrial cancer and others; The alternatives (Either do nothing vs. hysteroscopy D&C) & the risks were discussed with the patient including but not limited: pain, uterine perforation, bleeding, infection, possible injury to bladder, bowel, ureter, possible need for blood transfusion with all its possible risks. The patient verbalized understanding all questions answered and signed consent. Urine test done in the office was negative The patient was placed into the dorsal lithotomy position; a speculum was inserted in the vagina. Using aseptic technique for the procedure, the cervix was cleansed with Betadine. The anterior lip of the cervix was grasped with a single tooth tenaculum. The uterus was sounded to 7 cm with a 4 mm Pipelle was used. Tissues samples were obtained and placed in formalin, in a patient labeled container and sent to the pathology department. At the end of the procedure, there was minimal bleeding noted The patient tolerated the procedure well and was discharged in good condition with the following instructions: Nothing in the vagina until the bleeding stops. No sex until the bleeding stops, to call if any of the following occurs: fever (>100.4), flu-like symptoms, abdominal pain, heavy bleeding, four smelling vaginal discharge. The patient was instructed to schedule a Follow up appointment in 2 weeks to discuss pathology results of the biopsy and treatment options. This note was generated with a voice recognition program. Some errors may have been overlooked during the review of this note. Sometimes these errors may affect the content or meaning of a given sentence. 74849-Espzvvhqxud Biopsy Assessment & Plan Assessment & Plan (1) Abnormal uterine bleeding: Code(s): N93.9 - Abnormal uterine and vaginal bleeding, unspecified Category: Medical Plan: EMB done, see procedure note (2) ASCUS with positive high risk HPV cervical: Code(s): R87.610 - Atypical squamous cells of undetermined significance on cytologic smear of cervix (ASC-US); R87.810 - Cervical high risk human papillomavirus (HPV) DNA test positive Category: Medical Plan: Discussed with the patient the result of her abnormal pap, its significance, risk of progression, persistence, and regression. the false positive/negative rate of a Pap smear as a screening test in detecting cervical cancer and the indication for a diagnostic test -colposcopy, biopsy, endocervical curettage. The patient verbalized understanding and agreed with the plan, all questions answered. Colpo/biopsy/ECC done, see procedure note Orders: Orders AMB HCG Urine Test Today Z32.02 - Encounter for test, result negative AMB Colposcopy Today R87.610 - Atypical squamous cells of undetermined significance on cytologic smear of cervix (ASC-US), R87.810 - Cervical high risk human papillomavirus (HPV) DNA test positive AMB Endometrial Biopsy Today N93.9 - Abnormal uterine and vaginal bleeding, unspecified Coding Level of Care Code Procedure Only Diagnoses Abnormal uterine bleeding N93.9 ASCUS with positive high risk HPV cervical R87.610; R87.810 CPT Codes Colposcopy - CPT: 67089-Cthoapdcx of cervix including upper vagina with biopsy and ECC ([id number]) Endometrial Biopsy - CPT: 64386-Qyyqcmidhev Biopsy ([id number])
[2024-06-05 13:20] VITALS: BMI 24.1
== END 2024-06-05 14:23 | disposition home or self-care (01) ==
PROVIDERS: PCP Family Medicine; Visit Provider Obstetrics & Gynecology
DX: R87.610 Atypical squamous cells of undetermined significance on cytologic smear of cervix (ASC-US) (principal); R87.810 Cervical high risk human papillomavirus (HPV) DNA test positive; N93.9 Abnormal uterine and vaginal bleeding, unspecified; Z32.02 Encounter for pregnancy test, result negative
CPT/HCPCS: 57454; 58110

== ENCOUNTER 2024-06-05 13:10 | Outpatient (REF) | payer OTHER, SELFPAY | END 2024-06-05 13:11 | disposition home or self-care (01) | LOC: HO.LNP 13:10 | PROVIDERS: PCP Family Medicine; Visit Provider Obstetrics & Gynecology | DX: R87.610 Atypical squamous cells of undetermined significance on cytologic smear of cervix (ASC-US) (principal); R87.810 Cervical high risk human papillomavirus (HPV) DNA test positive; N93.9 Abnormal uterine and vaginal bleeding, unspecified | CPT/HCPCS: 57454; 58110; 81025; 88305 ==

== ENCOUNTER → 2024-06-06 16:21 | Outpatient (BNVA) | payer OTHER, SELFPAY | PROVIDERS: PCP Family Medicine; Visit Provider Family Medicine | DX: F41.8 Other specified anxiety disorders (principal); F43.10 Post-traumatic stress disorder, unspecified; M79.7 Fibromyalgia; Z79.899 Other long term (current) drug therapy | CPT/HCPCS: 96127; 99212 ==

== ENCOUNTER → 2024-06-06 16:21 | Outpatient (AMB) | payer OTHER, SELFPAY ==
[2024-06-06 16:42] VITALS: BP 118/60; PULSE 82; RESP 14; TEMP 36.3; O2SAT 100; BMI 24.7
--- NOTE | 2024-06-06 16:42 | MHC.PC.OV ---
Vital Signs 06/06/24 16:42 Height 5 ft Weight 126 lb 4 oz BMI 24.7 BP 118/60 Blood Pressure Location Lt brachial Position Sitting Respiration 14 Pulse 82 Pulse Source Pulse Oximeter Temp 97.3 F Temp Source Temporal Artery Scan Pulse Oximetry (%) 100 Oxygen Delivery Method Room Air Intake Visit Reasons: DISABILITY PAPERWORK + BLOOD WORK Intake Note: disability paper work Allergies No Known Allergies Allergy (Verified 06/06/24 16:46) Tobacco use date assessed: 12/09/23 Dental Screening Dental Screen Date: 12/09/23 HPI DISABILITY PAPERWORK + BLOOD WORK HPI Details 44 y/o female presents today for disability paperwork. Hx of depression/anxiety, PTSD. States she does not have a therapist/psychiatrist. PHQ-9 10, JOYCE-7 12 today. Reports hx of fibromyalgia and significant back/arm pain. She walks her dog daily. HPI Comments History of Present Illness Details Documentation assistance for Dmitry Orellana MD, was provided by Hayden Hernandez,? Monitoring Coordinator on 06/06/2024 at 5:17 PM EST. I, Dr. Orellaan, have read, observed, and verified documentation. PFSH Medical History Cocaine abuse Alcohol dependence Fibromyalgia Chronic post-traumatic stress disorder (PTSD) Depression Alcohol abuse Surgical History H/O tubal ligation S/P carpal tunnel release History of esophagogastroduodenoscopy (EGD) H/O colonoscopy H/O section Family History Maternal Grandmother Colon cancer Family/Other Lung cancer Family/Other Breast cancer, Onset Age: 49 Social History Household Members: Friend(s) Household Members Other:: yes. Housing: Homeless Housing Other:: Friend's trailer Do you presently have visiting nurse or other home services: No Alcohol intake: current Alcohol intake frequency: other Alcohol type: hard liquor Comment: per patient sober for about 7 months 09/06/22 Patient Tobacco Use Status: Current everyday Tobacco user Tobacco use type: Cigarette Cigarette Packs Per Day: 1.5 Cigarettes Per Day: 10 Years Smoked: 29 e-Cigarette/Vaping Use: Never Used Second Hand Smoke Exposure: Yes Substance Use Type: Crack/Cocaine and Marijuana service: No Sexual orientation: Did not discuss Female Reproductive History Menstrual Age of Menarche: 12 Questionnaire PHQ-9 Over the last 2 weeks, how often have you been bothered by any of the following problems? 1. Little interest or pleasure in doing things: several days 2. Feeling down, depressed, or hopeless: not at all 3. Trouble falling or staying asleep, or sleeping too much: not at all 4. Feeling tired or having little energy: nearly every day 5. Poor appetite or overeating: more than half the days 6. Feeling bad about yourself - or that you are a failure or have let yourself or your family down: not at all 7. Trouble concentrating on things, such as reading the newspaper or watching television: more than half the days 8. Moving or speaking so slowly that other people could have noticed. Or the opposite - being so fidgety or restless that you have been moving around a lot more than usual: more than half the days 9. Thoughts that you would be better off or of hurting yourself in some way: not at all Total score: 10 Depression Screening Interpretation: Positive Depression Screening Done: Yes 18021 - PHQ-9 Billing: Yes Source: Developed by Drs. Troy Felipe, Lucrecia Soto, Jermaine Escobar and colleagues, with an educational ez from [employer]. Thrive Questionnaire Date Thrive assessed: 06/06/24 I am a: Patient What is your living situation today?: I choose not to answer this question Within the past 12 months, did the food you bought not last and you didn't have the money to get more?: I choose not to answer this question Within the past 12 months, did you worry whether your food would run out before you got money to buy more?: I choose not to answer this question Do you have trouble paying for medicines?: No Do you have trouble getting transportation to medical appointments?: I choose not to answer this question Do you have trouble paying your heating and electricity bill?: I choose not to answer this question Do you have trouble taking care of your child, family member or friend?: I choose not to answer this question Do you have trouble with day-to-day activities such as bathing, preparing meals, shopping, managing finances, etc.?: Yes Are you currently unemployed and looking for a job?: I choose not to answer this question Are you interested in more education?: No Please select the resources that you would like help with: None Currently or been in a relationship where the following occur: I choose not to answer THRIVE Score: 0 AUDIT C Alcohol Use Questionnaire (AUDIT-C) 1. How often do you have a drink containing alcohol?: Never Total Score: 0 JOYCE-7 AMB Questionnaire JOYCE-7 Date JOYCE - 7 assessed: 06/06/24 Feeling nervous, anxious, or on edge: 1 = Several days Not being able to stop or control worryin = Nearly every day Worrying too much about different things: 3 = Nearly every day Trouble relaxin = Several days Being so restless that it is hard to sit still: 1 = Several days Becoming easily annoyed or irritable: 2 = More than half the days Feeling afraid as if something awful might happen: 1 = Several days Total JOYCE-7 score (0-4 normal; 5-9 mild; 10-14 moderate; 15-21 severe): 12 Source: Developed by Drs. Troy Felipe, Lucrecia Soto, Jermaine Escobar and colleagues, with an educational ez from [employer]. JOYCE-7 Assessment Billing JOYCE-7 Assessment Tool: JOYCE-7 Assessment 25936 Review of Systems Const Denies chills, Denies fatigue, Denies fever(s), Denies headache(s) and Denies weakness ENT Denies dizziness and Denies headache(s) Card Denies dyspnea Resp Denies cough, Denies dyspnea, Denies wheezing and Denies other (shortness of breath) Musc Denies numbness and Denies tingling Neuro Denies dizziness, Denies headache(s), Denies numbness, Denies tingling and Denies weakness Psych Reports anxiety and Reports depression Endo Denies fatigue Aller/Immun Denies wheezing Physical exam (Primary Care) Vital Signs: Last Vital Signs Temp 97.3 F 06/06/24 16:42 Pulse 82 06/06/24 16:42 Resp 14 06/06/24 16:42 BP 118/60 06/06/24 16:42 Pulse Ox 100 06/06/24 16:42 Oxygen Delivery Method Room Air 06/06/24 16:42 BMI result Body Mass Index 24.7 Tobacco/Smoking Status: Tobacco use Status Tobacco use date assessed 12/09/23 06/06/24 16:47 Patient Tobacco Use Status Current everyday Tobacco 06/06/24 16:47 Tobacco use type Cigarette 06/06/24 16:47 e-Cigarette/Vaping Use Never Used 06/06/24 16:47 Depression Screening Interpretation: Positive Thrive Assessment: Date of Thrive Assessment Date Thrive assessed 12/09/23 06/06/24 16:47 Currently or been in a relationship where the following occur: I choose not to answer Const General: well developed; No acute distress Nutritional Appearance: well nourished Orientation/consciousness: patient oriented x3 HENMT Head: Yes normocephalic and Yes atraumatic Eyes General: appearance normal, both eyes and all related structures Pupils: Equal, round and reactive pupils present EOM: EOMs intact bilaterally Resp Effort & Inspection: normal respiratory effort Neuro General: patient oriented x3 and gait normal Cranial nerves: Yes Equal, round and reactive pupils present Psych Affect: normal affect Coding Level of Care Code Est Pt Level 3 (20543) Diagnoses Depression with anxiety F41.8 Post traumatic stress disorder (PTSD) F43.10 Fibromyalgia M79.7 Additional Codes JOYCE-7 Assessment Billing - JOYCE-7 Assessment Tool: JOYCE-7 Assessment 51672 ([id number]) Assessment & Plan Assessment & Plan (1) Depression with anxiety: Code(s): F41.8 - Other specified anxiety disorders Category: Medical Plan: History?of?depression,?anxiety?and?PTSD. Unclear?exactly?what?her?situation?is?for?psychiatry.??Patient?says?she?does?not?have?a?therapist?or?psychiatrist?but?she?does?seem?to?have?a?provider?for?her?lamotrigine?and/or?Vraylar. Patient?has?had?issues?with?memory?difficulties?and?also?mental?blocking?and?word-finding?problems.??I?suspect?this?is?likely?secondary?to?her?psychiatric?diagnoses.??I?had?referred?her?to?neuropsychiatry?but?she?says?they?did?not?take?her?insurance. Referring?patient[place]to[place]?to?evaluate?anxiety?depression?and?PTSD?as?well?as?cognitive?changes. Patient?has?not?been?working?in?the?last?3?years.??In?my?opinion?she?is?not?currently?able?to?work?due?to?the?above?causing?disability.??Also?has?disabilities?secondary?to?fibromyalgia/chronic?pain. She?is?not?fully?optimized?however?as?she?has?not?had?good?psychiatric?care?or?physical?therapy?for?chronic?pain/fibromyalgia.??Working?on?getting?these?started?for?her. Will?fill?out?disability?forms?for?her?today. (2) Post traumatic stress disorder (PTSD): Code(s): F43.10 - Post-traumatic stress disorder, unspecified Category: Medical Plan: As?above (3) Fibromyalgia: Code(s): M79.7 - Fibromyalgia Category: Medical Plan: As?above. Will?ask?the?office?to?help?get?her?started?with?physical?therapy. Currently?disabled - will?complete?forms. Continue?pregabalin?which?helps.??She?may?benefit?from?Cymbalta?and?she?can?start?this?today. Will?also?give?her?meloxicam.??Hydrate?well. Encouraged?regular?exercise?as?tolerated. Orders: Referrals Psychiatry Outpatient Consultation Service F33.1 - Major depressive disorder, recurrent, moderate, F43.10 - Post-traumatic stress disorder, unspecified, R41.89 - Other symptoms and signs involving cognitive functions and awareness Medications: New duloxetine (Cymbalta) 20 mg PO BID 30 days 60 caps 1RF meloxicam 15 mg PO DAILY 30 days 30 tabs 2RF Refilled pregabalin 300 mg PO BEDTIME 30 days 30 caps 0RF
== END ==
PROVIDERS: PCP Family Medicine; Visit Provider Family Medicine
DX: F41.8 Other specified anxiety disorders (principal); F43.10 Post-traumatic stress disorder, unspecified; M79.7 Fibromyalgia

== ENCOUNTER 2024-06-12 14:49 | Outpatient (AMB) | payer OTHER, SELFPAY ==
--- NOTE | 2024-06-12 15:01 | A.OFFVIS_ITS ---
Vital Signs 06/12/24 15:03 Height 5 ft Weight 127 lb 6.835 oz BMI 24.9 BP 140/84 H Blood Pressure Location Rt brachial Position Sitting Pulse 94 Pulse Source Pulse Oximeter Pulse Oximetry (%) 98 Oxygen Delivery Method Room Air Intake Visit Reasons: 2 mos FUV - R/S from 03/22/2024 Intake Note: Relevant Flags or Indicators ? Requires Electronics Commodity Manager? Sai Atkinson presents in office today for a scheduled ~ 6 mos FUV. CC; No recent diagnostics, rast allergen done, senna rx'd Relevant GI Sx as reported per pt? None - esomperazole still therapeutic per pt. ? Hx of any recent surgeries? None Electronics Commodity Manager Required: No Allergies No Known Allergies Allergy (Verified 06/12/24 15:02) HPI HPI 2 mos FUV - R/S from 03/22/2024: Details: LAST VISIT: Chronic GERD Constipation Dysphagia Plan Patient continues with dysphagia. She states that she has been taking Nexium every morning. Will add famotidine at bedtime. Discussed with patient avoiding dietary triggers and late night snacking. Continue avoiding alcohol and continue avoiding smoking tobacco. Patient was encouraged to stay upright for minimum 3 hours after meals. Will send her for RAST allergen. Patient is not sure if she has any allergies. Biopsies was not taking from esophagus, however inflammation and severe reflux was seen in the esophagus on barium swallow. Patient will continue senna. Increase fluid intake and activity to promote better bowel motility. I will see patient in 3 months, sooner on as needed basis. Patient is agreeable to this plan and verbalizes understanding of instructions. She was given the opportunity to ask questions and all questions answered. ? Thank you for allowing me to participate in her care Orders Orders Rast Allergen Today K21.9 Medications New famotidine (Pepcid) 20 mg PO BEDTIME 30 tabs 3RF K21.9 Refilled sennosides (senna) 17.2 mg (2 x 8.6 mg) PO DAILY 90 caps 2RF TODAY'S VISIT: Patient is here today for follow-up. Patient reports that she has been doing well in the past 6 months. Patient takes Nexium in the morning and her symptoms are suppressed. Not always takes famotidine at bedtime. Patient has been sober for quite some time. Is due to go for colonoscopy. Denies any issues with anes thesia in the past. No history of sleep apnea. Not on any anticoagulation medication. Denies any family history of CRC. Denies any cardiac or respiratory symptoms. Patient had endoscopy in the beginning of this year and since then she has been doing well, trying to avoid dietary triggers and staying on PPI daily. PFSH Medical History Cocaine abuse Alcohol dependence Fibromyalgia Chronic post-traumatic stress disorder (PTSD) Depression Alcohol abuse Surgical History H/O tubal ligation S/P carpal tunnel release History of esophagogastroduodenoscopy (EGD) H/O colonoscopy H/O section Family History Maternal Grandmother Colon cancer Family/Other Lung cancer Family/Other Breast cancer, Onset Age: 49 Social History Household Members: Friend(s) Household Members Other:: yes. Housing: Homeless Housing Other:: Friend's trailer Do you presently have visiting nurse or other home services: No Alcohol intake: current Alcohol intake frequency: other Alcohol type: hard liquor Comment: per patient sober for about 7 months 09/06/22 Patient Tobacco Use Status: Current everyday Tobacco user Tobacco use type: Cigarette Cigarette Packs Per Day: 1.5 Cigarettes Per Day: 10 Years Smoked: 29 e-Cigarette/Vaping Use: Never Used Second Hand Smoke Exposure: Yes Substance Use Type: Crack/Cocaine and Marijuana service: No Sexual orientation: Did not discuss Female Reproductive History Menstrual Age of Menarche: 12 Review of Systems Const Denies weight gain and Denies weight loss ENT Reports no additional complaints, Denies dysphagia and Denies odynophagia Card Reports no additional complaints Resp Reports no additional complaints GI Denies abdominal pain, Denies belching, Denies melena, Denies bloating, Denies change in bowel habits, Denies dysphagia, Denies excessive flatus, Denies dyspepsia, Denies heartburn, Denies diarrhea, Denies loose stools, Denies nausea, Denies odynophagia and Denies vomiting Musc Reports no additional complaints Neuro Reports no additional complaints Psych Reports no additional complaints Endo Reports no additional complaints Physical Exam Vital Signs: Last Vital Signs Pulse 94 06/12/24 15:03 BP 140/84 H 06/12/24 15:03 Pulse Ox 98 06/12/24 15:03 Oxygen Delivery Method Room Air 06/12/24 15:03 BMI result Body Mass Index 24.9 Const General: healthy appearing, no acute distress and well developed Nutritional Appearance: well nourished Orientation/consciousness: patient oriented x3 Resp Effort & Inspection: normal respiratory effort, able to speak in complete sentences, no tracheal deviation and symmetric chest movement Auscultation: clear to auscultation bilaterally Cardio Rate: regular rate GI Inspection: Yes normal to inspection and No distended Palpation (GI): Soft to palpation, not firm, nontender and No hepatosplenomegaly present Auscultation: normal bowel sounds General: Yes no CVA tenderness Back/Spine/Pelvis Back: no CVA tenderness Skin General skin exam: elasticity normal, turgor normal and dry skin Neuro General: patient oriented x3 Psych Appearance: grossly normal Mental Status: mental status grossly normal Assessment & Plan Assessment & Plan (1) Screening for colon cancer: Code(s): Z12.11 - Encounter for screening for malignant neoplasm of colon Category: Medical (2) Chronic GERD: Code(s): K21.9 - Gastro-esophageal reflux disease without esophagitis Category: Medical (3) Constipation: Code(s): K59.00 - Constipation, unspecified Qualifiers: Constipation type: slow transit constipation Qualified Code(s): K59.01 - Slow transit constipation (4) Dysphagia: Code(s): R13.10 - Dysphagia, unspecified Qualifiers: Dysphagia type: unspecified Qualified Code(s): R13.10 - Dysphagia, unspecified Plan Patient reports that she has been feeling better. Dysphagia most likely related to severe acid reflux. Patient takes Nexium and is doing well. Denies any epigastric pain postprandially. Continue Nexium if patient will fee well we can lower the dose next visit. Avoid dietary triggers and late night snacking. Staying upright for minimum 3 hours after meals discussed with patient. Patient is due to go for colonoscopy. What to expect before during and after procedure discussed with patient. Stressed the importance of good bowel prep with patient. We will change Senokot 2 Dulcolax. Patient can take it daily. Reports that bowel movements are better, however she does not feel like she empties the bowels completely. Increase fluid intake and activity to promote better bowel motility. Follow-up after procedure, sooner on as needed basis. Patient is agreeable to current plan of care and verbalizes understanding of instructions. She was given the opportunity to ask questions and all questions answered. Thank you for allowing me to participate in her care Medications: New bisacodyl (Dulcolax (bisacodyl)) 10 mg (2 x 5 mg) PO BEDTIME 180 tabs 4RF polyethylene glycol 3350 (Miralax) As directed by gastro[facility]ology [facility] at [facility] 238 grams PO ONCE 238 grams 0RF Z12.11 - Encounter for screening for malignant neoplasm of colon Refilled esomeprazole magnesium (Nexium) 40 mg PO DAILY 30 caps 5RF K21.9 - Gastro- esophageal reflux disease without esophagitis Discontinued polyethylene glycol 3350 Discontinued Reason: Patient no longer taking 17 grams PO DAILY 510 grams 2RF Coding Level of Care Code Est Pt Level 3 (16599) Diagnoses Screening for colon cancer Z12.11 Chronic GERD K21.9 Slow transit constipation K59.01 Constipation type: slow transit constipation Dysphagia, unspecified type R13.10 Dysphagia type: unspecified Time Spent (min) 30 Comment 20 minutes spent with patient and additional 10 minutes spent reviewing her records
[2024-06-12 15:03] VITALS: BP 140/84; PULSE 94; O2SAT 98; BMI 24.9
== END 2024-06-12 15:47 | disposition home or self-care (01) ==
LOC: HO.HGI 14:50
PROVIDERS: PCP Family Medicine; Visit Provider Nurse Practitioner Family
DX: Z12.11 Encounter for screening for malignant neoplasm of colon (principal); K21.9 Gastro-esophageal reflux disease without esophagitis; K59.01 Slow transit constipation; R13.10 Dysphagia, unspecified; Z01.818 Encounter for other preprocedural examination
CPT/HCPCS: 99213

== ENCOUNTER → 2024-06-12 14:49 | Outpatient (BNVA) | payer OTHER, SELFPAY | PROVIDERS: PCP Family Medicine; Visit Provider Nurse Practitioner Family | DX: K21.9 Gastro-esophageal reflux disease without esophagitis (principal); K59.01 Slow transit constipation; R13.10 Dysphagia, unspecified | CPT/HCPCS: 99212 ==

== ENCOUNTER 2024-06-29 13:51 | Outpatient (REF) | payer OTHER, SELFPAY ==
--- NOTE | ~2024-06-29 | US_ITS ---
EXAMINATION: MM DIAGNOSTIC DIGITAL BREAST TOMOSYNTHESIS, BILATERAL US BREAST LIMITED, LEFT CLINICAL INFORMATION: Patient due for yearly; also follow-up for complicated cyst left breast 5:00 axis, recommended for aspiration at [facility] on 12/30/2022. Patient did not follow through with this recommendation and returns for screening at [facility] today. COMPARISON: Mammography: Baseline screening mammography 12/18/2022. Ultrasound left breast 12/18/2022. TECHNIQUE: Digital breast tomosynthesis is performed in both the craniocaudal and mediolateral oblique views along with computer-aided detection (CAD). Synthesized 2D images are generated from the tomosynthesis. This was followed by targeted left breast ultrasound. FINDINGS: The breasts are extremely dense, which lowers the sensitivity of mammography (ACR BI-RADS breast composition Category d). Stable partially calcified degenerating fibroadenoma in the middle one third of the slightly upper and inner left breast. There are no suspicious masses, suspicious grouped calcifications, or areas of architectural distortion in either breast. The parenchymal pattern is stable from prior exams. Previously seen oval mass at the 5:00 axis is no longer definitely appreciated or completely obscured today. Exam limited by extremely dense breast tissue. We will evaluate this region with ultrasound. (Review of prior imaging demonstrates what appears to be a simple lobulated cyst at 5:00 left breast, 4 cm from the nipple). There is no skin or axillary abnormality. ULTRASOUND: CLINICAL INFORMATION: As above. COMPARISON: Left breast ultrasound 12/30/2022. TECHNIQUE: Targeted sonographic evaluation left breast was performed using a high frequency linear transducer. Attention was given to the 4-6:00 axis left breast was given in the region of known cyst. Selected archived documentation. FINDINGS: LEFT BREAST: -There are innumerable simple cysts, with one minimally complicated, spanning the 4-6 o'clock axis left breast, with the index cyst of concern having significantly decreased in size, now appearing simple, measuring 8 x 6 x 3 mm (previously 0.9 x 1.3 x 0.8 cm). Innumerable additional cysts are present, the largest measuring approximately 12 mm, findings consistent with fibrocystic changes. These findings are benign. There are no findings suspicious for malignancy. US/US breast LT limited mamm only IMPRESSION: -There are no findings suspicious for malignancy in either breast. Extremely dense breast tissue. -Benign fibrocystic changes spanning the 4-6 o'clock axis left breast as described above. No further follow-up recommended, and no aspiration felt necessary, as these findings are benign. -Recommend the patient return to routine annual screening mammography. OVERALL ASSESSMENT: Mammography: BI-RADS 2 - Benign Findings Ultrasound: BI-RADS 2 - Benign Findings RECOMMENDATION: 1 year F/U This patient's information was entered into a reminder system with a target due date for their next mammogram. Electronically signed by: Bryan Morales MD 06/29/2024 03:34 PM ZAYDA MUÑOZ
== END 2024-06-29 13:52 | disposition home or self-care (01) ==
LOC: HO.MAMMO 13:51
PROVIDERS: PCP Family Medicine; Visit Provider Obstetrics & Gynecology
DX: R92.8 Other abnormal and inconclusive findings on diagnostic imaging of breast (principal)
CPT/HCPCS: 76642; 77062; 77066

== ENCOUNTER → 2024-06-29 14:00 | Outpatient (BNV) | payer OTHER, SELFPAY | PROVIDERS: PCP Family Medicine; Visit Provider Radiology Diagnostic Radiology | DX: N60.02 Solitary cyst of left breast (principal) | CPT/HCPCS: 76642; 77062; 77066 ==

== ENCOUNTER 2024-08-25 07:48 | Outpatient (AMB) | payer OTHER, SELFPAY ==
--- NOTE | 2024-08-25 07:49 | MHC.OFFVIS ---
Intake Visit Reasons: colpo and emb results Allergies No Known Allergies Allergy (Verified 06/12/24 15:02) HPI Comments Details: The patient is presenting for follow-up to discuss the results of her abnormal uterine bleeding/abnormal Pap workup and options of treatment. The following workup was done.: H&H= 11.2/34.7 TSH, hCG, prolactin, GC and chlamydia were negative. FSH/LH= 4/2.7 Co testing showed ascus/HPV E6 E7 positive Endometrial biopsy, colpo biopsy ECC pathology showed the following: A. Endometrium, biopsy: Fragments of endometrial polyp; background disordered proliferative endometrium; few fragments of endocervical epithelium within normal limits; no atypia identified. B. Endocervix, curettage: Small fragments of inflamed cervical transformation zone mucosa and endocervical mucosa with reactive changes. C. Cervix, 1 o'clock, biopsy: - Low-grade squamous intraepithelial lesion (MEGHAN 1). - No endocervical epithelium identified. D. Cervix, 11 o'clock, biopsy: - Squamous mucosa within normal limits. - No endocervical epithelium identified. E. Cervix, 12 o'clock, biopsy: - Squamous mucosa within normal limits. - No endocervical epithelium identified. COMMENT: The findings are concordant with the patient's recent Pap/cytology specimen ([facility] [id number]; ASCUS with positive HR HPV) - slide reviewed Mammogram /breast ultrasound was BI-RADS 2. Pelvic ultrasound showed the following: Uterus: The uterus is anteverted and measures 8.1 x 4.6 x 5.5 cm. The double wall endometrial thickness is 3 mm. The uterus is smooth in contour and has normal myometrial echogenicity. No visible fibroid. Multiple nabothian cysts are present in the cervix the largest measures 1.6 cm and is complex. Adnexa: The left ovary was not visualized. The right ovary measures 2.8 x 1.5 x 3.0 cm for a volume of 6.8 cc and appears unremarkable. There is no free intraperitoneal fluid. PFSH Medical History Cocaine abuse Alcohol dependence Fibromyalgia Chronic post-traumatic stress disorder (PTSD) Depression Alcohol abuse Surgical History H/O tubal ligation S/P carpal tunnel release History of esophagogastroduodenoscopy (EGD) H/O colonoscopy H/O section Family History Maternal Grandmother Colon cancer Family/Other Lung cancer Family/Other Breast cancer, Onset Age: 49 Social History Household Members: Friend(s) Household Members Other:: yes. Housing: Homeless Housing Other:: Friend's trailer Do you presently have visiting nurse or other home services: No Alcohol intake: current Alcohol intake frequency: other Alcohol type: hard liquor Comment: per patient sober for about 7 months 09/06/22 Patient Tobacco Use Status: Current everyday Tobacco user Tobacco use type: Cigarette Cigarette Packs Per Day: 1.5 Cigarettes Per Day: 10 Years Smoked: 29 e-Cigarette/Vaping Use: Never Used Second Hand Smoke Exposure: Yes Substance Use Type: Crack/Cocaine and Marijuana service: No Sexual orientation: Did not discuss Female Reproductive History Menstrual Age of Menarche: 12 Review of Systems Const All systems reviewed & are unremarkable except as noted in HPI and below Reports as per HPI and Reports no additional complaints GI Reports no additional complaints Reports no additional complaints Telehealth Telehealth Telehealth Platform: Telephone Location of provider rendering services: practice address Location of patient: address on file Patient Identification confirmed using: Name, : Yes Telehealth method: video Patient verbally consented to treatment: Yes Patient verbally consented to billing insurance company: Yes Patient informed of any privacy concerns related to visit: Yes Assessment & Plan Assessment & Plan (1) Abnormal uterine bleeding: Comment: Endo polyp by emb Code(s): N93.9 - Abnormal uterine and vaginal bleeding, unspecified Category: Medical Plan: Discussed with the patient the results of the pathology showing fragments of endometrial polyp, recommended hysteroscopy D&C possible polypectomy/myomectomy. Instructions given the patient to schedule preop appointment within 2 weeks. All questions answered, the patient verbalized understanding (2) Dysplasia of cervix, low grade (MEGHAN 1): Code(s): N87.0 - Mild cervical dysplasia Category: Medical Plan: Discussed with the patient the pathology results of the colposcopy biopsies & endocervical curettage ( mild dysplasia-MEGHAN 1). Discussed with the patient the sensitivity specificity, positive and negative predictive value in detecting cervical cancer in addition discussed the regression, persistence and progression rates. Recommended co-testing in 12 months, if cytology and or HPV are abnormal will proceed was colposcopy biopsy and endocervical curettage, if lesions gets worse or stays persistent for 2 years will proceed with loop electric excision procedure. Instructions given to the patient to schedule a co test appointment in 1 year. All questions answered the patient verbalized understanding. (3) Abnormal mammogram of left breast: Comment: Left breast 4 cm from the nipple between 5 o'clock 01/05 Code(s): R92.8 - Other abnormal and inconclusive findings on diagnostic imaging of breast Category: Medical Plan: Breast ultrasound and diagnostic mammogram was BI-RADS 2 and the patient was seen by General surgery consult for further management. I spent a total of 20 minutes reviewing the chart, talking to the patient via phone for 10 minute and documenting in the medical record. Coding Level of Care Code Tele Est Pt Level 2 (03105) Diagnoses Abnormal uterine bleeding N93.9 Dysplasia of cervix, low grade (MEGHAN 1) N87.0 Abnormal mammogram of left breast R92.8
== END 2024-08-25 09:55 | disposition home or self-care (01) ==
LOC: HO.HWS 07:48
PROVIDERS: PCP Family Medicine; Visit Provider Obstetrics & Gynecology
DX: N93.9 Abnormal uterine and vaginal bleeding, unspecified (principal); N87.0 Mild cervical dysplasia; R92.8 Other abnormal and inconclusive findings on diagnostic imaging of breast
CPT/HCPCS: 99212

== ENCOUNTER 2024-08-29 12:58 | Outpatient (REF) | payer OTHER, SELFPAY ==
[2024-08-29 16:16] LABS: Estimated Average Glucose 100 mg/dL; Hemoglobin A1C 105.0517 umol/L; Hemoglobin A1c % 5.1 % (<6.0); Total Hemoglobin (HGBA1C) 3288.4573 umol/L
[2024-08-29 16:30] LABS: Folate 9.9 ng/mL (> or = 4.0); Vitamin B12 642 pg/mL (200-900)
[2024-08-29 16:52] LABS: Alanine Aminotransferase 23 U/L (0-31); Albumin Level 4.1 g/dL (3.5-5.0); Alkaline Phosphatase 56 U/L (39-117); Anion Gap 8 (12-20); Aspartate Amino Transferase 27 U/L (5-31); Bilirubin Total 0.2 mg/dL (0.0-1.0); Blood Urea Nitrogen 10 mg/dL (9-16); Calcium 8.7 mg/dL (8.4-10.2); Carbon Dioxide 26 mmol/L (22-29); Chloride 107 mmol/L (96-108); Estimated Glomerular Filt Rate > 60; Glucose Random 83 mg/dL (60-115); Potassium 3.8 mmol/L (3.3-5.1); Sodium 137 mmol/L (135-145); Total Protein 6.6 g/dL (6.5-8.0)
[2024-08-29 17:06] LABS: Vitamin D 25-OH Total 35.2 ng/mL (>30)
[2024-09-04 13:43] LABS: Vitamin B1 7 nmol/L (8-30)
== END 2024-08-29 12:59 | disposition home or self-care (01) ==
LOC: HO.LAB 12:58
PROVIDERS: PCP Family Medicine; Visit Provider Clinical Nurse Specialist Psychiatric/Mental Health
DX: F33.1 Major depressive disorder, recurrent, moderate (principal); F43.12 Post-traumatic stress disorder, chronic; F09 Unspecified mental disorder due to known physiological condition; E55.9 Vitamin D deficiency, unspecified; Z79.899 Other long term (current) drug therapy
CPT/HCPCS: 36415; 80053; 82306; 82607; 82746; 83036; 84425; 90792

== ENCOUNTER 2024-08-29 12:58 | Outpatient (AMB) | payer OTHER, SELFPAY ==
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
== END 2024-08-29 14:06 | disposition home or self-care (01) ==
LOC: HO.HOP 12:58
PROVIDERS: PCP Family Medicine; Visit Provider Clinical Nurse Specialist Psychiatric/Mental Health
DX: F09 Unspecified mental disorder due to known physiological condition (principal); F33.1 Major depressive disorder, recurrent, moderate; F43.12 Post-traumatic stress disorder, chronic
CPT/HCPCS: 90792

== ENCOUNTER 2024-09-12 13:56 | Outpatient (AMB) | payer OTHER, SELFPAY ==
--- NOTE | 2024-09-12 14:17 | MHC.OFFVIS ---
Intake Visit Reasons: pre op Graphic Design Manager: Graphic Design Manager Present (Mary) Accompanied by: Self / Same As Patient Allergies No Known Allergies Allergy (Verified 09/12/24 14:22) Is last menstrual period known: Yes Last menstrual period: 06/13/20 Post menopausal: No Patient : No Do you need a note to return to daycare/school/sports/work: Yes (for surgery on wednesday) HPI Comments Details: Presenting to discuss hysteroscopy D&C possible polypectomy/myomectomy. Last EMB pathology showed fragments of endometrial polyp PFSH Medical History Cocaine abuse Alcohol dependence Fibromyalgia Chronic post-traumatic stress disorder (PTSD) Depression Alcohol abuse Surgical History H/O tubal ligation S/P carpal tunnel release History of esophagogastroduodenoscopy (EGD) H/O colonoscopy H/O section Family History Maternal Grandmother Colon cancer Family/Other Lung cancer Family/Other Breast cancer, Onset Age: 49 Social History Household Members: Friend(s) Household Members Other:: yes. Housing: Homeless Housing Other:: Friend's trailer Do you presently have visiting nurse or other home services: No Alcohol intake: current Alcohol intake frequency: other Alcohol type: hard liquor Comment: per patient sober for about 7 months 09/06/22 Patient Tobacco Use Status: Current everyday Tobacco user Tobacco use type: Cigarette Cigarette Packs Per Day: 1.5 Cigarettes Per Day: 10 Years Smoked: 29 e-Cigarette/Vaping Use: Never Used Second Hand Smoke Exposure: Yes Substance Use Type: Crack/Cocaine and Marijuana service: No Sexual orientation: Did not discuss Female Reproductive History Menstrual Age of Menarche: 12 Date of last menstrual period: 06/13/20 Total pregnancies: 2 Full term: 2 Review of Systems Card Reports as per HPI and Reports no additional complaints Resp Reports as per HPI and Reports no additional complaints GI Reports as per HPI and Reports no additional complaints Reports as per HPI Physical Exam Const General: cooperative, healthy appearing and comfortable Resp Effort & Inspection: normal respiratory effort Auscultation: clear to auscultation bilaterally Percussion: percussion normal Cardio Palpation: normal PMI Rate: regular rate Rhythm: regular rhythm Heart sounds: no murmurs and no rubs Peripheral pulses: Peripheral pulses 2+ throughout GI Inspection: Yes normal to inspection Palpation (GI): Soft to palpation, nontender, no guarding, not rigid and No hepatosplenomegaly present Percussion: Yes normal to percussion Auscultation: normal bowel sounds Rectal Exam - Female: deferred Assessment & Plan Assessment & Plan (1) Abnormal uterine bleeding: Comment: Endo polyp by emb Code(s): N93.9 - Abnormal uterine and vaginal bleeding, unspecified Category: Medical Plan: Will proceed with hysteroscopy D&C possible polypectomy/myomectomy. Discussed with the patient the procedure , all benefits and risks including but not limited to inability to complete the procedure , insufficient endometrial tissue for a complete evaluation of the endometrial cavity , bleeding, infection, possible need for blood transfusion with all its risk ( HIV,syphilis, Hepatitis, anaphylaxis shock, others..), injury to bladder, rectum, possible need for laparoscopy/laparotomy or hysterectomy. The patient verbalized understanding and signed the consent. Instructions given the patient to stay NPO after midnight the day prior to the procedure and to take only the specific medication (s) discussed the morning of the surgical procedure and to schedule a 2 week postoperative appointment Coding Level of Care Code Est Pt Level 3 (54618) Diagnoses Abnormal uterine bleeding N93.9
--- OUTSIDE RECORDS SUMMARY | 2024-09-12 14:49 | XMS_ITS | Clinical Summary ---
Author Organization [employer] Address [address] [place] [address] [address] [place] [address] Care Team Providers Care Fruit Rancher Name Role Phone Unavailable Primary Care Provider Unavailabl e Social History Tobacco Use Types Packs/Day Years Used Date Smoking Tobacco: Never Assessed Comments Unknown Sex and Gender Information Value Date Recorded Sex Assigned at Female 10/15/2022 3:24 PM EST Legal Sex Female 3:22 PM EST Gender Identity Female 10/15/2022 3:24 PM EST Sexual Orientation Straight 10/15/2022 3: 24 PM EST Plan of Treatment Health Maintenance Due Date Last Done Comments CT Colonography 1979 Colonoscopy 1979 Colorectal Cancer Screening 1979 Depression Screening 1979 FIT DNA/Cologuard 1979 FIT 1979 FOBT 1979 HIV Screening 1979 SDOH Screening 1979 Sigmoidoscopy 1979 Alcohol/Substance Use Screening 1991 Tobacco Screening 1991 Family Planning (PISQ) 1994 Hepatitis C Screening 1997 DTaP/Tdap/Td Vaccines (1 - Tdap) 1998 Hepatitis B Vaccines (1 of 3 - 19+ 3-dose series) 1998 Pap Smear 2000 Cervical Cancer Screening 2009 HPV/Cotest 2009 Mammogram 2019 COVID-19 Vaccine ( - 2023-2 5 season) 2024 Influenza Vaccine (#1) 2024 Zoster Vaccines (1 of 2) 2029 RSV Patients and Pa tients Aged 60 years or older (1 - 1-dose 75+ series) 2054 HIB Vaccines Aged Out No longer eligi ble based on patient's age to complete this topic HPV Vaccines Aged Out No longer eligi ble based on patient's age to complete this topic Hepatitis A Vaccines Aged Out No long er eligible based on patient's age to complete this topic IPV Vaccines Aged Out No longer eligi ble based on patient's age to complete this topic Meningococcal Vaccine Aged Out No tera darrell eligible based on patient's age to complete this topic Pneumococcal Vaccine: Pediat rics (0 to 5 Years) and At-Risk Patients (6 to 64 Years) Aged Out No longer eligible b ased on patient's age to complete this topic RSV under 20 months Aged Out No longe r eligible based on patient's age to complete this topic Rotavirus Vaccines Aged Out No longer eligible based on patient's age to complete this topic Insurance ACO
== END 2024-09-12 14:39 | disposition home or self-care (01) ==
LOC: HO.HWS 13:56
PROVIDERS: PCP Family Medicine; Visit Provider Obstetrics & Gynecology
DX: N93.9 Abnormal uterine and vaginal bleeding, unspecified (principal)
CPT/HCPCS: 99213

== ENCOUNTER → 2024-09-12 13:56 | Outpatient (BNVA) | payer OTHER, SELFPAY | PROVIDERS: PCP Family Medicine; Visit Provider Obstetrics & Gynecology | DX: N93.9 Abnormal uterine and vaginal bleeding, unspecified (principal) | CPT/HCPCS: 99212 ==

== ENCOUNTER 2024-11-13 09:08 | Outpatient (AMB) | payer OTHER, SELFPAY ==
--- NOTE | 2024-11-13 09:09 | A.OFFVIS_ITS ---
Vital Signs 11/13/24 09:10 Height 5 ft Weight 123 lb BMI 24.0 Intake Visit Reasons: post op Apartment Rental Clerk Required: No Information Interpreted: non-clinical & clinical Accompanied by: Self / Same As Patient Allergies No Known Allergies Allergy (Verified 11/13/24 09:11) HPI Comments Details: The patient is presenting post hysteroscopy D&C no complaints minimal vaginal bleeding no feverishness chills or abdominal pain. The pathology showed the following: A. Endometrium, polyp, biopsy: Polypoid fragments of secretory endometrium with features suggestive of endometrial polyp; negative for atypia, hyperplasia or malignancy. B. Endometrium, curettage: Fragments of inactive endometrium with stromal and glandular breakdown; negative for atypia, hyperplasia or malignancy The following workup was done.: H&H= 11.2/34.6 TSH, prolactin, hCG, GC and chlamydia were negative. 06/08 co testing showed ascus/HPV positive Colposcopy/ECC with Endometrial biopsy pathology showed the following: A. Endometrium, biopsy: Fragments of endometrial polyp; background disordered proliferative endometrium; few fragments of endocervical epithelium within normal limits; no atypia identified. B. Endocervix, curettage: Small fragments of inflamed cervical transformation zone mucosa and endocervical mucosa with reactive changes. C. Cervix, 1 o'clock, biopsy: - Low-grade squamous intraepithelial lesion (MEGHAN 1). - No endocervical epithelium identified. D. Cervix, 11 o'clock, biopsy: - Squamous mucosa within normal limits. - No endocervical epithelium identified. E. Cervix, 12 o'clock, biopsy: - Squamous mucosa within normal limits. - No endocervical epithelium identified Mammogram was BI-RADS 2 Pelvic ultrasound showed the following: Uterus: The uterus is anteverted and measures 8.1 x 4.6 x 5.5 cm. The double wall endometrial thickness is 3 mm. The uterus is smooth in contour and has normal myometrial echogenicity. No visible fibroid. Multiple nabothian cysts are present in the cervix the largest measures 1.6 cm and is complex. Adnexa: The left ovary was not visualized. The right ovary measures 2.8 x 1.5 x 3.0 cm for a volume of 6.8 cc and appears unremarkable. There is no free intraperitoneal fluid. FOR[facility]LY [facility], [facility] Medical History Elevated cholesterol Anxiety Hiatal hernia COPD (chronic obstructive pulmonary disease) Cocaine abuse Alcohol dependence Fibromyalgia Chronic post-traumatic stress disorder (PTSD) Depression Surgical History Hx of dilation and curettage H/O tubal ligation S/P carpal tunnel release History of esophagogastroduodenoscopy (EGD) H/O colonoscopy H/O section Family History Maternal Grandmother Colon cancer Family/Other Lung cancer Family/Other Breast cancer, Onset Age: 49 Social History Household Members: Friend(s) Household Members Other:: yes. Housing: Homeless Housing Other:: Friend's trailer Do you presently have visiting nurse or other home services: No Alcohol intake: current Alcohol intake frequency: other Alcohol type: hard liquor Comment: per patient sober for about 7 months 09/06/22 Patient Tobacco Use Status: Current everyday Tobacco user Tobacco use type: Cigarette Cigarette Packs Per Day: 0.5 Cigarettes Per Day: 10.0 Years Smoked: 29 e-Cigarette/Vaping Use: Never Used Second Hand Smoke Exposure: Yes Substance Use Type: Crack/Cocaine and Marijuana service: No Sexual orientation: Did not discuss Female Reproductive History Menstrual Age of Menarche: 12 Review of Systems Const All systems reviewed & are unremarkable except as noted in HPI and below Reports as per HPI and Reports no additional complaints GI Reports no additional complaints Reports no additional complaints Assessment & Plan Assessment & Plan (1) Abnormal uterine bleeding: Comment: With anemia Code(s): N93.9 - Abnormal uterine and vaginal bleeding, unspecified Category: Medical Plan: Iron sulfate 325 mg p.o. q.d., repeat CBC in 3 months , order placed. Discussed with the patient the results of the work up done and options of treatment including Lysteda, control pills, Mirena IUD, endometrial ablation and hysterectomy. All pros, cons, risks and benefits if each option was discussed with the patient and the patient decided to go ahead with Mirena IUD so a more detailed discussion about it was conducted including mechanism of action, risks (uterine perforation, infection, injury to bladder, bowel, displacement, and others) benefits (hypo menorrhea, amenorrhea, ...). GC/CT were taken and the patient was instructed to schedule Mirena IUD insertion on day 1-5 of next cycle . All questions answered, the patient verbalized understanding Orders: Orders Complete Blood Count no Diff Today N93.9 - Abnormal uterine and vaginal bleeding, unspecified Coding Level of Care Code Est Pt Level 3 (06556) Diagnoses Abnormal uterine bleeding N93.9
[2024-11-13 09:10] VITALS: BMI 24.0
== END 2024-11-13 09:32 | disposition home or self-care (01) ==
LOC: HO.HWS 09:09
PROVIDERS: PCP Family Medicine; Visit Provider Obstetrics & Gynecology
DX: N93.9 Abnormal uterine and vaginal bleeding, unspecified (principal)
CPT/HCPCS: 99213

== ENCOUNTER → 2024-11-13 09:08 | Outpatient (BNVA) | payer OTHER, SELFPAY | PROVIDERS: PCP Family Medicine; Visit Provider Obstetrics & Gynecology | DX: N93.9 Abnormal uterine and vaginal bleeding, unspecified (principal) | CPT/HCPCS: 99212 ==

== ENCOUNTER 2025-01-17 14:18 | Outpatient (AMB) | payer MEDICAID, SELFPAY ==
--- OUTSIDE RECORDS SUMMARY | 2025-01-17 14:22 | XMS_ITS | Clinical Summary ---
Author Organization [employer] Address [address] [facility] [address] [place] [address] Care Team Providers Care Jewel Lathe Operator Name Role Phone Unavailable Primary Care Provider [...] Screening 1979 SDOH Screening 1979 Sigmoidoscopy 1979 Disability Screening 1979 Alcohol/Substance Use Screening 1991 Tobacco Screening 1991 Family Planning (PISQ) 1994 Hepatitis C Screening 1997 DTaP/Tdap/Td Vaccines (1 - Tdap) 1998 Hepatitis B Vaccines (1 of 3 - 19+ 3-dose series) 1998 Pap Smear 2000 Cervical Cancer Screening 2009 HPV/Cotest 2009 Mammogram 2019 COVID-19 Vaccine ( - 2023-2 5 season) 2024 Influenza Vaccine (Season Ended) 2025 Zoster Vaccines (1 of 2) 2029 RSV [...] patient's age to complete this topic Meningococcal B Vaccine Aged Out No l onger eligible based on patient's age to complete this topic Meningococcal Vaccine Aged Out No tera darrell eligible based on patient's age to complete this topic Pneumococcal Vaccine: Pediat rics (0 to 5 Years) and At-Risk Patients (6 to 49) Years) Aged Out No longer eligible b ased on patient's age to complete this topic RSV under 20 months Aged Out No longe r eligible based on patient's age to complete this topic Rotavirus Vaccines Aged Out No longer eligible based on patient's age to complete this topic Insurance [facility]
--- NOTE | 2025-01-17 14:27 | MHC.PC.OV ---
Vital Signs 01/17/25 14:29 Height 5 ft Weight 132 lb BMI 25.8 BP 120/80 Blood Pressure Location Rt brachial Position Sitting Respiration 14 Pulse 115 H Pulse Source Pulse Oximeter Temp 98.5 F Temp Source Oral Pulse Oximetry (%) 98 Oxygen Delivery Method Room Air Intake Visit Reasons: f/u disability /bumps on body Intake Note: patient is scheduled to rule out possible shingles Financial Coach Required: No Allergies No Known Allergies Allergy (Verified 01/17/25 14:28) Medication List - Last Reconciled 01/17/25 by Dmitry Orellana MD albuterol sulfate 90 mcg/actuation 2 puffs inhalation Q4H PRN 30 days bisacodyl (Dulcolax (bisacodyl)) 10 mg (2 x 5 mg) PO BEDTIME bupropion HCl XL 300 mg PO DAILY bupropion HCl XL (Wellbutrin XL) 150 mg PO QAM cariprazine (Vraylar) 4.5 mg PO DAILY clonidine HCl 0.1 mg PO TID PRN 30 days duloxetine (Cymbalta) 20 mg PO BID 30 days esomeprazole magnesium (Nexium) 40 mg PO DAILY 90 days famotidine 20 mg PO DAILY ferrous sulfate 325 mg PO DAILY 90 days hydroxyzine HCl 10 mg PO BID lamotrigine 200 mg PO DAILY meloxicam 15 mg PO DAILY 30 days polyethylene glycol 3350 (Miralax) 238 grams PO ONCE pregabalin 300 mg PO BEDTIME 30 days thiamine HCl (vitamin B1) 100 mg PO DAILY trazodone 75 mg PO BEDTIME Tobacco use date assessed: 12/09/23 Dental Screening Dental Screen Date: 12/09/23 HPI f/u disability /bumps on body HPI Details Erythematous lesions?on?hands,?arms?and?trunk. Lesions?on?both?sides?body?and?primarily?appear To?be?in?a?follicular?pattern. However,?he?also?has?ulcerations?in?her?mouth. [facility] Medical History Elevated cholesterol Anxiety Hiatal hernia COPD (chronic obstructive pulmonary disease) Cocaine abuse Alcohol dependence Fibromyalgia Chronic post-traumatic stress disorder (PTSD) Depression Surgical History Hx of dilation and curettage H/O tubal ligation S/P carpal tunnel release History of esophagogastroduodenoscopy (EGD) H/O colonoscopy H/O section Family History Maternal Grandmother Colon cancer Family/Other Lung cancer Family/Other Breast cancer, Onset Age: 49 Social History Household Members: Friend(s) Household Members Other:: yes. Housing: Homeless Housing Other:: Friend's trailer Do you presently have visiting nurse or other home services: No Alcohol intake: current Alcohol intake frequency: other Alcohol type: hard liquor Comment: per patient sober for about 7 months 09/06/22 Patient Tobacco Use Status: Current everyday Tobacco user Tobacco use type: Cigarette Cigarette Packs Per Day: 0.5 Cigarettes Per Day: 10.0 Years Smoked: 29 e-Cigarette/Vaping Use: Never Used Second Hand Smoke Exposure: Yes Substance Use Type: Crack/Cocaine and Marijuana service: No Sexual orientation: Did not discuss Female Reproductive History Menstrual Age of Menarche: 12 Questionnaire PHQ-9 Over the last 2 weeks, how often have you been bothered by any of the following problems? 1. Little interest or pleasure in doing things: several days 2. Feeling down, depressed, or hopeless: several days 3. Trouble falling or staying asleep, or sleeping too much: several days 4. Feeling tired or having little energy: several days 5. Poor appetite or overeating: not at all 6. Feeling bad about yourself - or that you are a failure or have let yourself or your family down: several days 7. Trouble concentrating on things, such as reading the newspaper or watching television: more than half the days 8. Moving or speaking so slowly that other people could have noticed. Or the opposite - being so fidgety or restless that you have been moving around a lot more than usual: more than half the days 9. Thoughts that you would be better off or of hurting yourself in some way: not at all Total score: 9 Source: Developed by Drs. Troy Felipe, Lucrecia Soto, Jermaine Escobar and colleagues, with an educational ez from [employer] Thrive Questionnaire Date Thrive assessed: 06/06/24 I am a: Patient What is your living situation today?: I have a steady place to live Within the past 12 months, did the food you bought not last and you didn't have the money to get more?: Sometimes True Within the past 12 months, did you worry whether your food would run out before you got money to buy more?: Sometimes True Do you have trouble paying for medicines?: I choose not to answer this question Do you have trouble getting transportation to medical appointments?: Yes Do you have trouble paying your heating and electricity bill?: No Do you have trouble taking care of your child, family member or friend?: No Do you have trouble with day-to-day activities such as bathing, preparing meals, shopping, managing finances, etc.?: No Are you currently unemployed and looking for a job?: No Are you interested in more education?: I choose not to answer this question Please select the resources that you would like help with: Transportation Currently or been in a relationship where the following occur: I choose not to answer THRIVE Score: 3 AUDIT C Alcohol Use Questionnaire (AUDIT-C) 1. How often do you have a drink containing alcohol?: Never Total Score: 0 JOYCE-7 AMB Questionnaire JOYCE-7 Date JOYCE - 7 assessed: 06/06/24 Feeling nervous, anxious, or on edge: 1 = Several days Not being able to stop or control worryin = Several days Worrying too much about different things: 1 = Several days Trouble relaxin = Not at all Being so restless that it is hard to sit still: 1 = Several days Becoming easily annoyed or irritable: 0 = Not at all Feeling afraid as if something awful might happen: 1 = Several days Total JOYCE-7 score (0-4 normal; 5-9 mild; 10-14 moderate; 15-21 severe): 5 Source: Developed by Drs. Troy Felipe, Lucrecia Soto, Jermaine Escobar and colleagues, with an educational ez from [employer] Review of Systems Const Details: See?HPI Denies chills, Denies fatigue, Denies fever(s), Denies headache(s) and Denies weakness ENT Denies dizziness and Denies headache(s) Card Denies dyspnea Resp Denies cough, Denies dyspnea, Denies wheezing and Denies other ( shortness of breath) Musc Denies numbness and Denies tingling Neuro Denies dizziness, Denies headache(s), Denies numbness, Denies tingling, Denies paresthesias and Denies weakness Psych Denies anxiety and Denies depression Endo Denies fatigue Aller/Immun Denies wheezing Physical exam (Primary Care) Vital Signs: Last Vital Signs Temp 98.5 F 01/17/25 14:29 Pulse 115 H 01/17/25 14:29 Resp 14 01/17/25 14:29 BP 120/80 01/17/25 14:29 Pulse Ox 98 01/17/25 14:29 Oxygen Delivery Method Room Air 01/17/25 14:29 BMI result Body Mass Index 25.8 Tobacco/Smoking Status: Tobacco use Status Tobacco use date assessed 12/09/23 01/17/25 14:34 Patient Tobacco Use Status Current everyday Tobacco 01/17/25 14:34 Tobacco use type Cigarette 01/17/25 14:34 e-Cigarette/Vaping Use Never Used 01/17/25 14:34 PHQ-9: PHQ-9 Score PHQ-9: Total score 9 01/17/25 14:34 Thrive Assessment: Date of Thrive Assessment Date Thrive assessed 06/06/24 01/17/25 14:34 Currently or been in a relationship where the following occur: I choose not to answer Const Other: See?HPI General: no acute distress and well developed Nutritional Appearance: well nourished Orientation/consciousness: patient oriented x3 [facility] Head: Yes normocephalic and Yes atraumatic Eyes General: appearance normal, both eyes and all related structures Pupils: Equal, round and reactive pupils present EOM: EOMs intact bilaterally Resp Effort & Inspection: normal respiratory effort Neuro General: patient oriented x3 and gait normal Cranial nerves: Yes Equal, round and reactive pupils present Psych Affect: normal affect Coding Level of Care Code Est Pt Level 3 (54531) Diagnoses Folliculitis L73.9 Mouth ulcer K12.1 Assessment & Plan Assessment & Plan (1) Folliculitis: Code(s): L73.9 - Follicular disorder, unspecified Category: Medical Plan: Start?Bactrim Can?use?Hibiclens?as?well Finish?all?antibiotic?and?call?for?any?problems. Call?or?return?to?office?if?not?improving?or?worsens (2) Mouth ulcer: Code(s): K12.1 - Other forms of stomatitis Category: Medical Plan: Likely?secondary?to?stress?from?skin?infection Patient?would?like?a?script?for?valacyclovir?which?I?have?sent?to?pharmacy Medications: New sulfamethoxazole-trimethoprim 800-160 mg (Bactrim DS) 1 tab PO Q12H 10 days 20 tabs 0RF valacyclovir 500 mg PO Q12H 14 days 28 tabs 0RF
[2025-01-17 14:29] VITALS: BP 120/80; PULSE 115; RESP 14; TEMP 36.9; O2SAT 98; BMI 25.8
== END 2025-01-17 16:54 | disposition home or self-care (01) ==
LOC: HO.HMCFM 14:18
PROVIDERS: PCP Family Medicine; Visit Provider Family Medicine
DX: L73.9 Follicular disorder, unspecified (principal); K12.1 Other forms of stomatitis

== ENCOUNTER → 2025-01-17 14:18 | Outpatient (BNVA) | payer MEDICAID, SELFPAY | PROVIDERS: PCP Family Medicine; Visit Provider Family Medicine | DX: M79.7 Fibromyalgia (principal); K12.1 Other forms of stomatitis; L73.9 Follicular disorder, unspecified | CPT/HCPCS: 99212 ==

== ENCOUNTER 2025-01-29 09:16 | Outpatient (AMB) | payer OTHER, SELFPAY ==
--- NOTE | 2025-01-29 09:18 | MHC.OFFVIS ---
Vital Signs 01/29/25 09:19 Height 5 ft Weight 132 lb BMI 25.8 BP 138/90 H Blood Pressure Location Rt brachial Position Sitting Pulse 104 H Pulse Source Pulse Oximeter Pulse Oximetry (%) 98 Oxygen Delivery Method Room Air Intake Visit Reasons: INP-Mental Disorder Intake Note: Patient referred in-house by Franci Turner for mild cognitive disorder Hardware Supplies Sales Representative Required: No Accompanied by: Self / Same As Patient Allergies No Known Allergies Allergy (Verified 01/29/25 09:22) HPI Comments Details: 44y/o female comes for evaluation of word finding difficulties and memory issues. She is not sure when it started but feels it worsened in the past 1 year.The word finding difficulties which she decsribes a s a block started 1 year ago . she has alcohol abuse - in and out of rehab for 3 years now. she has been sober for 2 years. she was drinking heavy alcohol atleast for 15 years. she was doing 2 sleeves of fireball per day. No h/o head injury she has h/o depression and anxiety , suicidal attempts - 3 years ago. she sees a therapist. she sees FARROWING WORKER - prescribes medictaions for mood. she feels her mood is stable now.No major stressors now she takes trazadone and clonidine pregabalin to sleep.she goes to bed at 8pm( because of fatigue related to fibroyalgia) and wakes up at 4 am No witnessed apneas or gasping arousals , but has loud snoring and fatigue. [facility] Medical History (Updated 01/29/25 @ 09:58 by Ewa Morgan MD) Word finding difficulty Hypersomnia Snoring Elevated cholesterol Anxiety Hiatal hernia COPD (chronic obstructive pulmonary disease) Cocaine abuse Alcohol dependence Fibromyalgia Chronic post-traumatic stress disorder (PTSD) Depression Surgical History Hx of dilation and curettage H/O tubal ligation S/P carpal tunnel release History of esophagogastroduodenoscopy (EGD) H/O colonoscopy H/O section Family History Maternal Grandmother Colon cancer Family/Other Lung cancer Family/Other Breast cancer, Onset Age: 49 Social History Household Members: Friend(s) Household Members Other:: yes. Housing: Homeless Housing Other:: Friend's trailer Do you presently have visiting nurse or other home services: No Alcohol intake: current Alcohol intake frequency: other Alcohol type: hard liquor Comment: per patient sober for about 7 months 09/06/22 Patient Tobacco Use Status: Current everyday Tobacco user Tobacco use type: Cigarette Cigarette Packs Per Day: 0.5 Cigarettes Per Day: 10.0 Years Smoked: 29 e-Cigarette/Vaping Use: Never Used Second Hand Smoke Exposure: Yes Substance Use Type: Crack/Cocaine and Marijuana service: No Sexual orientation: Did not discuss Female Reproductive History Menstrual Age of Menarche: 12 Physical Exam Vital Signs: Last Vital Signs Pulse 104 H 01/29/25 09:19 BP 138/90 H 01/29/25 09:19 Pulse Ox 98 01/29/25 09:19 Oxygen Delivery Method Room Air 01/29/25 09:19 BMI result Body Mass Index 25.8 Const General: cooperative, healthy appearing and comfortable Nutritional Appearance: average body habitus Orientation/consciousness: patient oriented x3 Eyes Pupils: Equal, round and reactive pupils present Neuro Other: mild postural tremors General: patient oriented x3, gait normal, tone normal, moves all extremities and no focal motor deficits Cranial nerves: Yes Equal, round and reactive pupils present, Yes Bilaterally intact EOM present, Yes Nystagmus not present, Yes Normal facial strength present, Yes Midline tongue present and Yes Symmetric palate elevation present Cognition (Neuro): normal cognition Gait exam (Neuro): Normal gait present Motor exam (neuro): 5/5 motor strength present throughout and Normal motor muscle tone present throughout Deep tendon reflexes (DTR's): Right triceps reflex intensity grade: 2+, Left triceps reflex intensity grade: 2+, Rt Biceps (C5, C6): 2+, Left biceps reflex intensity grade: 2+, Right brachioradialis reflex intensity grade: 2+, Left brachioradialis reflex intensity grade: 2+, Right patellar reflex intensity grade: 2+ and Left patellar reflex intensity grade: 2+ Coordination: [id number] test normal Orientation What is the (year) (season) (date) (day) (month)?: year, season, date, day and month Where are we (state) (county) (town or city) (hospital) (floor)?: state, county, town or city, hospital/clinic and floor Registration Name of 3 unrelated objects clearly and slowly, then ask patient to repeat all 3 of them. (1st repeat determines score. Make sure they can repeat all three): object 1, object 2 and object 3 Attention & Calculation (CHOOSE ONE) Spell WORLD backwards (DLROW): 5 letters Recall Ask patient to repeat the 3 items from question #3.: object 1 and object 3 Language Show patient a wristwatch & ask what it is. Repeat for pencil.: watch and pencil Ask the patient to repeat the phrase 'No ifs, ands, or buts' after you.: correct Ask the patient to 'take a piece of paper with their right hand' 'fold paper in half' 'place paper on floor': take paper in right hand, fold paper in half and place paper on floor Print the sentence 'CLOSE YOUR EYES' on a piece. If patient actually closes eyes then score.: followed written direction Give patient a blank piece of paper & ask to write a sentence. Score if it contains a noun & verb.: sentence contains subject and verb Ask patient to copy figure of intersecting pentagons exactly. Score if all 10 angles & 2 intersects are included.: all 10 angles present & 2 are intersected Score Score: 29 Assessment & Plan Assessment & Plan (1) Mild cognitive disorder: Code(s): F09 - Unspecified mental disorder due to known physiological condition Category: Medical (2) Snoring: Code(s): R06.83 - Snoring Category: Medical (3) Hypersomnia: Code(s): G47.10 - Hypersomnia, unspecified Category: Medical (4) Word finding difficulty: Code(s): R47.89 - Other speech disturbances Category: Medical Plan Reviewed her recent labs- low Vit B 1 and is on Thiamine supplement. Normal Vt B12 TSH etc MRI brain to r/o structural causes cognitive eval and therapy , speech therapy Home sleep test Orders: Orders MR head/brain wo con Today F09 - Unspecified mental disorder due to known physiological condition, G47.10 - Hypersomnia, unspecified, R06.83 - Snoring, R47.89 - Other speech disturbances RT home sleep study Today F09 - Unspecified mental disorder due to known physiological condition, G47.10 - Hypersomnia, unspecified, R06.83 - Snoring, R47.89 - Other speech disturbances Referrals Speech and Hearing Referral F09 - Unspecified mental disorder due to known physiological condition, R47.89 - Other speech disturbances Coding Level of Care Code New Pt Level 4 (97359) Complex EM visit Add On G2211 Diagnoses Mild cognitive disorder F09 Snoring R06.83 Hypersomnia G47.10 Word finding difficulty R47.89
[2025-01-29 09:19] VITALS: BP 138/90; PULSE 104; O2SAT 98; BMI 25.8
--- OUTSIDE RECORDS SUMMARY | 2025-01-29 09:59 | XMS_ITS | Clinical Summary ---
Author Organization [employer] Address [address] [facility] 7 [place] [address] Care Team Providers Care Geosciences Professor Name Role Phone Unavailable Primary Care Provider [...] Years) and At-Risk Patients (6 to 49) Years Aged Out No longer eligible b ased on patient's age to complete this topic RSV under 20 months Aged Out No longe r eligible based on patient's age to complete this topic Rotavirus Vaccines Aged Out No longer eligible based on patient's age to complete this topic Insurance [facility]
== END 2025-01-29 10:04 | disposition home or self-care (01) ==
LOC: HO.HSMS 09:17
PROVIDERS: PCP Family Medicine; Visit Provider Psychiatry & Neurology Neurology
DX: G31.84 Mild cognitive impairment of uncertain or unknown etiology (principal); R06.83 Snoring; G47.10 Hypersomnia, unspecified; R47.89 Other speech disturbances
CPT/HCPCS: 99204; G2211

== ENCOUNTER → 2025-01-29 09:16 | Outpatient (BNVA) | payer MEDICAID, SELFPAY | PROVIDERS: PCP Family Medicine; Visit Provider Psychiatry & Neurology Neurology | DX: R06.83 Snoring (principal); G47.10 Hypersomnia, unspecified; R47.89 Other speech disturbances; F09 Unspecified mental disorder due to known physiological condition | CPT/HCPCS: 99202 ==

== ENCOUNTER → 2025-04-10 07:52 | Outpatient (REF) | payer OTHER, SELFPAY ==
--- OUTSIDE RECORDS SUMMARY | 2025-04-10 07:57 | XMS_ITS | Clinical Summary ---
Author Organization [employer] Address [address] [facility] 7 [place] [address] Care Team Providers Care Fur Operator Name Role Phone Unavailable Primary Care [...] Tobacco Screening 1991 Family Planning (PISQ) 1994 HPV Vaccines (1 - 3-dose series) 1994 Hepatitis C Screening 1997 DTaP/Tdap/Td Vaccines (1 - Tdap) 1998 Hepatitis B Vaccines (1 of 3 - 19+ 3-dose series) 1998 Pap Smear 2000 Cervical Cancer Screening 2009 HPV/Cotest 2009 Mammogram 2019 COVID-19 Vaccine ( - 2023-2 5 season) 2024 Influenza Vaccine (#1) 2025 Zoster Vaccines (1 of 2) 2029 [...] topic Insurance [facility] [address]
--- OUTSIDE RECORDS SUMMARY | 2025-04-10 07:57 | XMS_ITS | Clinical Summary ---
Author Organization [facility] Address [address] [place] [address] Care Team Providers Care Friction Saw Operator Name Role Phone Beverly Landis MD Primary Care Prov ider Tameka Aquino PATIENT SUPPORT PARTNER Unavailable [phone] Anastasia Bailon PATIENT SUPPORT PARTNER Unavailable [phone] John Morrissey SQL SSRS DEVELOPER Unavailable [phone] Lew Barahona SQL SSRS DEVELOPER Unavailable [phone] Yary Carbajal CASH REGISTER BALANCER Unavailable [phone] Nell Kc CASH REGISTER BALANCER Unavailable Allergies No known active allergies Medications * This document contains information received from the source organization and may not represent a complete record from that organization. desvenlafaxine (PRISTIQ) 50 MG 24 hr tabletIndication s:Anxiety Take 1 tablet (50 mg total) by mouth daily. 30 tablet 12/11/2021 Active lamoTRIgine (LaMICtal) 25 MG tabletIndication s:Bipolar 1 disorder (HCC) Take 1 tablet (25 mg total) by mouth daily. Take 25 for 7 days, then 50 mg for 1 week, then 75 mg for 1 week, then 100 mg 70 tablet 12/11/2021 Active OLANZapine (ZyPREXA) 2.5 MG tabletIndication s:Anxiety Take 1 tablet (2.5 mg total) by mouth daily as needed (anxiety). 30 tablet 12/19/2021 Active Active Problems Problem Noted Date Diagnosed Date Dyspepsia 11/22/2019 Gastroesophageal reflux disease 11/22/2019 Resolved Problems Problem Noted Date Diagnosed Date Resolved Date Alcohol use disorder, severe, dependence 11/26/2021 12/31/2021 Family History Medical History Relation Name Comments ADD / ADHD Brother Alcohol abuse Brother Bipolar disorder Brother Alcohol abuse Father Drug abuse Father Schizophrenia Father Suicide completion Father Colon cancer Maternal Grandmother Diabetes Maternal Grandmother Suicide completion Maternal Uncle Stroke Mother Relation Name Status Comments Brother Father Maternal Grandmother Maternal Uncle Mother Social History Tobacco Use Types Packs/Day Years Used Date Smoking Tobacco: Every Day Cigarettes Smokeless Tobacco: Never Alcohol Use Standard Drinks/Week Comments Not Currently 0 (1 standard drink = 0.6 oz pur e alcohol) PHQ-2 Answer Date Recorded PHQ-2 Total Score 2 11/26/2021 Comments Unknown Sex and Gender Information Value Date Recorded Sex Assigned at Not on file Legal Sex Female 5:23 PM EDT Gender Identity Not on file Sexual Orientation Not on file Last Filed Vital Signs Vital Sign Reading Time Taken Comments Blood Pressure 121/93 11/27/2021 11:33 AM EDT Pulse - - Temperature - - Respiratory Rate - - Oxygen Saturation - - Inhaled Oxygen Concentration - - Weight 65.3 kg (144 lb) 11/27/2021 11:33 AM EDT Height 156.2 cm (5' 1.5 ) 11/27/2021 11:33 AM ED T Body Mass Index 26.77 11/27/2021 11:33 AM EDT Plan of Treatment Health Maintenance Due Date Last Done Comments Hepatitis C Virus Screening 1979 HIV Screening 1992 DTaP/Tdap/Td Vaccines (1 - Tdap) 1998 Hepatitis B Vaccines (1 of 3 - 19+ 3-dose series) 1998 Pap Smear (Ages 21-65) 2000 HPV Vaccines (1 - 3-dose SCD M series) 2006 Mammogram 2019 COVID-19 Vaccine ( - 2023-2 5 season) 2024 03/14/2021, 02/21/2021 Colonoscopy 2024 Influenza Vaccine 03/16/2025 Pneumococcal Vaccine: Pediatric (0-5 Years) and At-Risk Patients (6 to 49 Years) Aged Out No longer eligible b ased on patient's age to complete this topic Goals Goal Patient Goal Type Associated Problems Recent Progress Patient-Stated? Author Achieve a quality of life that is substance free on a continuing basis. Care Plan ADD-Substance Use Disorders No Yary Carbajal LCSW [phone] Take medication as prescribed by physician and report as to effectiveness and side effects. Care Plan ADD-Substance Use Disorders No Raven Yary Sorenson LCSW [phone] List the social, emotional, and family factors that contributed to substance dependence. Care Plan ADD-Substance Use Disorders No Yary Carbajal LCSW MARS GOAL 8 - Feel good about myself Care Plan ADD-Substance Use Disorders No Yary Carbajal LCSW Note: Additional Health Concerns Active Problems Noted Date Diagnosed Date ADD-Substance Use Disorders 12/09/2021 Insurance [facility] Care Teams Friction Saw Operator Relationship Specialty Start Date End Date Beverly Landis MD [address] [place] [phone] PCP - General Family Medicine 09/29/19 Tameka Aquino APRN [address] [place] [phone] Nurse Practitioner Otolaryngology 09/29/19 Anastasia Bailon, DAWN [address] [place] [address] Nurse Practitioner Psychiatry, General 11/21/21 John Morrissey LPC [address] [place] [address] Casino Manager Social Work 11/26/21 Lew Barahona LPC [address] [place] [phone] Casino Manager Clinical Social Work 11/26/21 Yary Carbajal LCSW [address] [place] [phone] Casino Manager Clinical Social Work 11/26/21 Nell Kc LCSW [address] [place] [address] Casino Manager Clinical Social Work 12/09/21
== END ==
LOC: HO.SL 07:52
PROVIDERS: PCP Family Medicine; Visit Provider Psychiatry & Neurology Neurology
DX: G47.33 Obstructive sleep apnea (adult) (pediatric) (principal); R47.89 Other speech disturbances; G47.10 Hypersomnia, unspecified; R06.83 Snoring; F09 Unspecified mental disorder due to known physiological condition
CPT/HCPCS: 95806

== ENCOUNTER → 2025-04-10 08:10 | Outpatient (BNV) | payer OTHER, SELFPAY | PROVIDERS: PCP Family Medicine; Visit Provider Psychiatry & Neurology Neurology | DX: G47.33 Obstructive sleep apnea (adult) (pediatric) (principal) | CPT/HCPCS: 95806 ==

== ENCOUNTER 2025-04-15 13:16 | Outpatient (REF) | payer OTHER, SELFPAY ==
--- NOTE | ~2025-04-15 | MR_ITS ---
EXAMINATION: MR BRAIN WITHOUT CONTRAST CLINICAL INFORMATION: Speech disturbances. COMPARISON: Correlated to CT dated November 05, 2022. TECHNIQUE: MRI of the brain was obtained using routine sequences without contrast. FINDINGS: No restricted diffusion. No acute intracranial hemorrhage, mass effect, midline shift, hydrocephalus or herniation. Pham-white matter differentiation is normal. There is prominence of the extra-axial CSF spaces cerebral sulci involving mostly the frontal temporal/sylvian fissures. Punctate hyperintense T2 FLAIR signal within the white matter of the frontal lobes. There is no signal abnormality or volume loss in the hippocampi. Craniocervical junction demonstrates normal position of the cerebellar tonsils. Sellar/suprasellar region demonstrated no signal abnormality or masses. Flow-void signal within the main cerebral vessels is normal. Probable Virchow-Rory spaces in the left basal ganglia region and right mid brain. Hyperintense T2 FLAIR signal in the left mastoid air cells. MR/MR head/brain wo con IMPRESSION: No acute stroke/nonhemorrhagic ischemia or acute intracranial hemorrhage. Bifrontal temporal lobe atrophy. Electronically signed by: Jovany Awan MD 04/16/2025 12:46 PM EDT
--- OUTSIDE RECORDS SUMMARY | 2025-04-15 13:25 | XMS_ITS | Clinical Summary ---
Author Organization [employer] Address [address] [facility] 7 [place] [address] Care Team Providers Care Clinical Evaluator Name Role Phone Unavailable Primary Care Provider [...] patient's age to complete this topic Insurance [facility] [place] [address]
--- OUTSIDE RECORDS SUMMARY | 2025-04-15 13:25 | XMS_ITS | Clinical Summary ---
Author Organization [facility] Address [address] [place] [address] Care Team Providers Care Computer Lab Assistant Name Role Phone Beverly Landis MD Primary Care Prov ider Tameka Aquino SOIL AND PLANT SCIENTIST Unavailable [phone] Anastasia Bailon SOIL AND PLANT SCIENTIST Unavailable [phone] John Morrissey WORKCELL OPERATOR Unavailable [phone] Lew Barahona WORKCELL OPERATOR Unavailable [phone] Yary Carbajal ELECTRONEURODIAGNOSTIC TECHNICIAN Unavailable [phone] Kc ELECTRONEURODIAGNOSTIC TECHNICIAN Unavailable [phone] Allergies No known active allergies Medications * [...] Diagnosed Date ADD-Substance Use Disorders 12/09/2021 Insurance [facility] Care Teams Computer Lab Assistant Relationship Specialty Start Date End Date Beverly Landis MD [address] [place] [id number] PCP - General Family Medicine 09/29/19 Tameka Aquino APRN [address] [place] [phone] Nurse Practitioner Otolaryngology 09/29/19 Anastasia Bailon, DAWN [address] [place] [address] Nurse Practitioner Psychiatry, General 11/21/21 John Morrissey LPC [address] [place] [address] Automatic Clipper And Stripper Social Work 11/26/21 Lew Barahona LPC [address] [place] [id number] Automatic Clipper And Stripper Clinical Social Work 11/26/21 Yary Carbajal LCSW [address] [place] [id number] Automatic Clipper And Stripper Clinical Social Work 11/26/21 Nell Kc LCSW [address] [place] [address] Automatic Clipper And Stripper Clinical Social Work 12/09/21
== END 2025-04-15 13:17 | disposition home or self-care (01) ==
LOC: HO.MRI 13:16
PROVIDERS: PCP Family Medicine; Visit Provider Psychiatry & Neurology Neurology
DX: R47.89 Other speech disturbances (principal); R06.83 Snoring; G47.10 Hypersomnia, unspecified; F09 Unspecified mental disorder due to known physiological condition
CPT/HCPCS: 70551

== ENCOUNTER → 2025-04-15 13:17 | Outpatient (BNV) | payer OTHER, SELFPAY | PROVIDERS: PCP Family Medicine; Visit Provider Radiology Diagnostic Radiology | DX: G31.09 Other frontotemporal neurocognitive disorder (principal) | CPT/HCPCS: 70551 ==

== ENCOUNTER 2025-04-17 13:39 | Outpatient (AMB) | payer MEDICAID, SELFPAY ==
--- NOTE | 2025-04-17 13:42 | A.OFFPC_ITS ---
Vital Signs 04/17/25 13:50 04/17/25 14:09 Height 5 ft Weight 136 lb 2 oz BMI 26.6 BP 162/80 H 146/80 H Blood Pressure Location Lt brachial Lt brachial Position Sitting Sitting Respiration 13 Pulse 99 Pulse Source Pulse Oximeter Temp 97.1 F Temp Source Oral Pulse Oximetry (%) 99 Oxygen Delivery Method Room Air Intake Visit Reasons: HDF-Discharged on 03/14-[facility] [place] [facility] [place] Patient is having a hard time hearing from her left ear x a few months. Yarder Operator Required: No Allergies No Known Allergies Allergy (Verified 04/17/25 13:42) Medication List - Last Reconciled 04/17/25 by Dmitry Orellana MD albuterol sulfate 90 mcg/actuation 2 puffs inhalation Q4H PRN 30 days bisacodyl (Dulcolax (bisacodyl)) 10 mg (2 x 5 mg) PO BEDTIME bupropion HCl XL 300 mg PO DAILY cariprazine (Vraylar) 4.5 mg PO DAILY clonidine HCl 0.1 mg PO TID PRN 30 days duloxetine (Cymbalta) 20 mg PO BID 30 days esomeprazole magnesium (Nexium) 40 mg PO DAILY 90 days famotidine 20 mg PO DAILY ferrous sulfate 325 mg PO DAILY 90 days hydroxyzine HCl 10 mg PO BID lamotrigine 200 mg PO DAILY meloxicam 15 mg PO DAILY 30 days polyethylene glycol 3350 (Miralax) 238 grams PO ONCE thiamine HCl (vitamin B1) 100 mg PO DAILY trazodone 75 mg PO BEDTIME valacyclovir 500 mg PO Q12H 14 days Tobacco use date assessed: 04/17/25 Dental Screening Dental Screen Date: 04/17/25 Did you have a dental visit in the last 12 months?: Yes Did you have a dental problem in the last 6 months where you did not have access to dental care?: No Was dental information given to patient?: Patient has dentist HPI HDF-Discharged on 03/14-[facility] HPI Details Patient with history of prior suicide attempts was admitted to [facility] on 03/11/2025 for intentional overdose of bupropion, with alcohol intake and witnessed seizure by EMS. Later extubated on 03/11/2025. In the ED, patient was intubated due to concerns for additional seizures. Poison control recommended dual lately due to extended release formulation of bupropion, to decrease any further absorption. Patient was put on CIWA score and this was low throughout her hospital course. Neurology did not see the need for EEG. She was followed by Psychiatry and cleared for discharge on 03/14/2025. She declined a referral to addiction medicine. May have also taken 2 months pregabalin. Does have a therapist and pt notes she was referred to a psychiatrist. She states she is satisfied with her therapist and psychiatrist. She feels mood improved with her current medication regimen. BP today elevated at 146/80. Pt notes it has been high recently. Reports L ear hearing changes which she describes as a decrease in hearing. HPI Comments History of Present Illness Details Documentation assistance for Dmitry Orellana MD, was provided by Hayden Hernandez,? Tailor Apprentice on 04/17/2025 at 2:15 PM EST. I, Dr. Orellana, have read, observed, and verified documentation. ? PFSH Medical History (Updated 04/17/25 @ 14:23 by Dmitry Orellana MD) Word finding difficulty Hypersomnia Snoring Elevated cholesterol Anxiety Hiatal hernia COPD (chronic obstructive pulmonary disease) Cocaine abuse Alcohol dependence Fibromyalgia Chronic post-traumatic stress disorder (PTSD) Depression Surgical History Hx of dilation and curettage H/O tubal ligation S/P carpal tunnel release History of esophagogastroduodenoscopy (EGD) H/O colonoscopy H/O section Family History Maternal Grandmother Colon cancer Family/Other Lung cancer Family/Other Breast cancer, Onset Age: 49 Social History Household Members: Friend(s) Household Members Other:: yes. Housing: Homeless Housing Other:: Friend's trailer Do you presently have visiting nurse or other home services: No Alcohol intake: current Alcohol intake frequency: other Alcohol type: hard liquor Comment: per patient sober for about 7 months 09/06/22 Patient Tobacco Use Status: Current everyday Tobacco user Tobacco use type: Cigarette Cigarette Packs Per Day: 0.5 Cigarettes Per Day: 10.0 Years Smoked: 29 e-Cigarette/Vaping Use: Never Used Second Hand Smoke Exposure: Yes Substance Use Type: Crack/Cocaine and Marijuana service: No Current occupational status: employed Sexual orientation: Did not discuss Cognitive needs: No Hearing needs: No Vision needs: No Female Reproductive History Menstrual Age of Menarche: 12 Questionnaire Thrive Questionnaire Date Thrive assessed: 01/17/25 I am a: Patient What is your living situation today?: I have a steady place to live Within the past 12 months, did the food you bought not last and you didn't have the money to get more?: Sometimes True Within the past 12 months, did you worry whether your food would run out before you got money to buy more?: Sometimes True Do you have trouble paying for medicines?: I choose not to answer this question Do you have trouble getting transportation to medical appointments?: Yes Do you have trouble paying your heating and electricity bill?: No Do you have trouble taking care of your child, family member or friend?: No Do you have trouble with day-to-day activities such as bathing, preparing meals, shopping, managing finances, etc.?: No Are you currently unemployed and looking for a job?: No Are you interested in more education?: I choose not to answer this question Please select the resources that you would like help with: Transportation Currently or been in a relationship where the following occur: I choose not to answer THRIVE Score: 3 JOYCE-7 AMB Questionnaire JOYCE-7 Date JOYCE - 7 assessed: 06/06/24 Source: Developed by Drs. Troy Felipe, Lucrecia Soto, Jermaine Escobar and colleagues, with an educational ez from [employer]. Review of Systems Const Denies chills, Denies fatigue, Denies fever(s), Denies headache(s) and Denies weakness ENT Denies dizziness and Denies headache(s) Card Denies dyspnea Resp Denies cough, Denies dyspnea, Denies wheezing and Denies other (shortness of breath) Musc Denies numbness and Denies tingling Neuro Denies dizziness, Denies headache(s), Denies numbness, Denies tingling and Denies weakness Psych Denies anxiety and Denies depression Endo Denies fatigue Aller/Immun Denies wheezing Physical exam (Primary Care) Vital Signs: Last Vital Signs Temp 97.1 F 04/17/25 13:50 Pulse 99 04/17/25 13:50 Resp 13 04/17/25 13:50 BP 146/80 H 04/17/25 14:09 Pulse Ox 99 04/17/25 13:50 Oxygen Delivery Method Room Air 04/17/25 13:50 BMI result Body Mass Index 26.6 Tobacco/Smoking Status: Tobacco use Status Tobacco use date assessed 04/17/25 04/17/25 13:44 Patient Tobacco Use Status Current everyday Tobacco 04/17/25 13:44 Tobacco use type Cigarette 04/17/25 13:44 e-Cigarette/Vaping Use Never Used 04/17/25 13:44 Thrive Assessment: Date of Thrive Assessment Date Thrive assessed 01/17/25 04/17/25 13:44 Currently or been in a relationship where the following occur: I choose not to answer Const General: well developed; No acute distress Nutritional Appearance: well nourished Orientation/consciousness: patient oriented x3 HENMT Head: Yes normocephalic and Yes atraumatic Eyes General: appearance normal, both eyes and all related structures Pupils: Equal, round and reactive pupils present EOM: EOMs intact bilaterally Resp Effort & Inspection: normal respiratory effort Neuro General: patient oriented x3 and gait normal Cranial nerves: Yes Equal, round and reactive pupils present Psych Affect: normal affect Coding Level of Care Code Est Pt Level 4 (95447) Diagnoses Intentional overdose T50.902A Suicide attempt T14.91XA Depression with anxiety F41.8 Hypertension I10 Change in hearing H91.90 Plantar wart B07.0 Assessment & Plan Assessment & Plan (1) Intentional overdose: Code(s): T50.902A - Poisoning by unspecified drugs, medicaments and biological substances, intentional self-harm, initial encounter Category: Medical (2) Suicide attempt: Code(s): T14.91XA - Suicide attempt, initial encounter Category: Medical (3) Depression with anxiety: Code(s): F41.8 - Other specified anxiety disorders Category: Medical (4) Hypertension: Code(s): I10 - Essential (primary) hypertension Category: Medical (5) Change in hearing: Code(s): H91.90 - Unspecified hearing loss, unspecified ear Category: Medical (6) Plantar wart: Code(s): B07.0 - Plantar wart Category: Medical Plan Patient with history of prior suicide attempts was admitted to [facility] on 03/11/2025 for intentional overdose of bupropion, with alcohol intake and witnessed seizure by EMS. Later extubated on 03/11/2025. In the ED, patient was intubated due to concerns for additional seizures. Poison control recommended dual lately due to extended release formulation of bupropion, to decrease any further absorption. Patient was put on CIWA score and this was low throughout her hospital course. Neurology did not see the need for EEG. She was followed by Psychiatry and cleared for discharge on 03/14/2025. She declined a referral to addiction medicine. May have also taken 2 much pregabalin. She is followed by her therapist still. She now has a new psychiatrist. Her psychiatrist is managing psych medications. Patient says she no longer feels suicidal as she is staying on meds. Encouraged her to remain on her medications and call her psychiatrist if she is running low on medications or if they are not helping. Reviewed that she can call therapist or psychiatrist or here if she is feeling suicidal. Reminded that she can follow-up with crisis center at the emergency department if she is feeling suicidal. Patient understands. She also has decreased hearing at left ear. Exam of left ear, canal and TM are normal Referred to audiology for testing Large plantar wart and I referred her to Podiatry. Blood pressure is too high. Start losartan Orders: Referrals Audiology Referral H91.90 - Unspecified hearing loss, unspecified ear Podiatry Referral B07.0 - Plantar wart Medications: New losartan 25 mg PO DAILY 90 tabs 3RF 90 days Refilled bupropion HCl XL (Wellbutrin XL) 150 mg PO QAM 30 tabs 2RF pregabalin 300 mg PO BEDTIME 30 caps 0RF 30 days Discontinued bupropion HCl XL (Wellbutrin XL) Discontinued Reason: Doctor's Order 150 mg PO QAM 30 tabs 2RF pregabalin Discontinued Reason: Doctor's Order 300 mg PO BEDTIME 30 days 30 caps 0RF
[2025-04-17 13:50] VITALS: BP 162/80; PULSE 99; RESP 13; TEMP 36.2; O2SAT 99; BMI 26.6
[2025-04-17 14:09] VITALS: BP 146/80
--- OUTSIDE RECORDS SUMMARY | 2025-04-17 14:57 | XMS_ITS | Clinical Summary ---
Author Organization [facility] Address [address] [place] [address] Care Team Providers Care Guideman Name Role Phone Beveryl Landis MD Primary Care Prov ider aTmeka Aquino SENIOR RELATIONSHIP MANAGER Unavailable [phone] Anastasia Bailon SENIOR RELATIONSHIP MANAGER Unavailable [phone] John Morrissey VP CLIENT SERVICES Unavailable [phone] Lew Barahona VP CLIENT SERVICES Unavailable [phone] Yary Carbajal ARCHITECTURAL INSPECTOR Unavailable [phone] Nell Kc ARCHITECTURAL INSPECTOR Unavailable [phone] Allergies No known active allergies Medications * [...] Diagnosed Date ADD-Substance Use Disorders 12/09/2021 Insurance [facility] Care Teams Guideman Relationship Specialty Start Date End Date Beverly Lnadis MD [address] [place] [id number] PCP - General Family Medicine 09/29/19 Tameka Aquino APRN [address] [place] [phone] Nurse Practitioner Otolaryngology 09/29/19 Anastasia Bailon, DAWN [address] [place] [address] Nurse Practitioner Psychiatry, General 11/21/21 John Morrissey LPC [address] [place] [address] Sales Product Specialist Social Work 11/26/21 Lew Barahona LPC [address] [place] [phone] Sales Product Specialist Clinical Social Work 11/26/21 Yary Carbajal LCSW [address] [place] [phone] Sales Product Specialist Clinical Social Work 11/26/21 Nell Kc LCSW [address] [place] [address] Sales Product Specialist Clinical Social Work 12/09/21
--- OUTSIDE RECORDS SUMMARY | 2025-04-17 14:57 | XMS_ITS | Clinical Summary ---
Author Organization [employer] Address [address] [facility] [address] [place] [address] Care Team Providers Care Highway Maintenance Worker Name Role Phone Unavailable Primary Care Provider [...] patient's age to complete this topic Insurance [facility]
== END 2025-04-17 14:30 | disposition home or self-care (01) ==
LOC: HO.HMCFM 13:40
PROVIDERS: PCP Family Medicine; Visit Provider Family Medicine
DX: T50.902A Poisoning by unspecified drugs, medicaments and biological substances, intentional self-harm, initial encounter (principal); T14.91XA Suicide attempt, initial encounter; H91.92 Unspecified hearing loss, left ear; F41.8 Other specified anxiety disorders; I10 Essential (primary) hypertension; B07.0 Plantar wart

== ENCOUNTER → 2025-04-17 13:39 | Outpatient (BNVA) | payer OTHER, SELFPAY | PROVIDERS: PCP Family Medicine; Visit Provider Family Medicine | DX: I10 Essential (primary) hypertension (principal); F41.8 Other specified anxiety disorders; H91.90 Unspecified hearing loss, unspecified ear; B07.0 Plantar wart; T14.91XD Suicide attempt, subsequent encounter; T43.292D Poisoning by other antidepressants, intentional self-harm, subsequent encounter | CPT/HCPCS: 99212 ==

== ENCOUNTER 2025-05-29 08:53 | Outpatient (AMB) | payer MEDICAID, SELFPAY ==
[2025-05-29 09:04] VITALS: BP 134/76; PULSE 91; O2SAT 95; BMI 26.2
--- NOTE | 2025-05-29 09:04 | MHC.OFFVIS ---
Vital Signs 05/29/25 09:04 Height 5 ft Weight 134 lb BMI 26.2 BP 134/76 Blood Pressure Location Rt brachial Position Sitting Pulse 91 Pulse Source Pulse Oximeter Pulse Oximetry (%) 95 Oxygen Delivery Method Room Air Intake Visit Reasons: 4 mnts f/u with [facility] per MD Intake Note: Patient presents follow up Cognitive/Sleep. MRI/HST in chart(AHI-7, MIKE 83%. APAP 5-20cm). Accompanied by: Spouse Allergies No Known Allergies Allergy (Verified 05/29/25 09:09) HPI Comments Details: 44y/o female comes for evaluation of word finding difficulties and memory issues. HST c/w AHI 7 and oxygen nadirs to 83%. Start APap and monitor for compliance. She is not sure when it started, but she noticed her memory has worsened in the last year. The word finding difficulties which she describes as a block started 1 year ago. She has an AUD, has been in and out of rehab for 3 years now, though she has been sober for 2 years. She was a heavy alcohol drinker for at least for 15 years, however has been sober since 2022. She denies h/o head injury or MVA. She has h/o depression and anxiety, with suicide attempts, 3 years ago. She sees a therapist every other week, and sees WIRE HARNESS DESIGN ENGINEER who prescribes medications for her mood disorder. She says her mood is stable now and denies SI intent. She takes lyrica and meloxicam to help with difficulty sleeping. She goes to bed at 8pm because of fatigue related to fibromyalgia and wakes up at 4 am, she denies witnessed apneas or gasping arousals. Her says she snores loudly. Her memory continues to be poor, she has to be reminded of tasks 3 or more times. She is slow to process information. She has trouble remembering where she is going. or why she went into the grocery store. She no longer drives due to getting lost. She has bouts of depression and takes Vraylar, she gets frustrated due to words not being easily enunciated or mixing up her words. She has RLS symptoms of paresthesias with r. leg, knee, hip and ankle pain that waxes and wanes depending on weather and her sleep patterns. [facility] Medical History Word finding difficulty Hypersomnia Snoring Elevated cholesterol Anxiety Hiatal hernia COPD (chronic obstructive pulmonary disease) Cocaine abuse Alcohol dependence Fibromyalgia Chronic post-traumatic stress disorder (PTSD) Depression Surgical History Hx of dilation and curettage H/O tubal ligation S/P carpal tunnel release History of esophagogastroduodenoscopy (EGD) H/O colonoscopy H/O section Family History Maternal Grandmother Colon cancer Family/Other Lung cancer Family/Other Breast cancer, Onset Age: 49 Social History Household Members: Friend(s) Household Members Other:: yes. Housing: Homeless Housing Other:: Friend's trailer Do you presently have visiting nurse or other home services: No Alcohol intake: current Alcohol intake frequency: other Alcohol type: hard liquor Comment: per patient sober for about 7 months 09/06/22 Patient Tobacco Use Status: Current everyday Tobacco user Tobacco use type: Cigarette Cigarette Packs Per Day: 0.5 Cigarettes Per Day: 10.0 Years Smoked: 29 e-Cigarette/Vaping Use: Never Used Second Hand Smoke Exposure: Yes Substance Use Type: Crack/Cocaine and Marijuana service: No Current occupational status: employed Sexual orientation: Did not discuss Cognitive needs: No Hearing needs: No Vision needs: No Female Reproductive History Menstrual Age of Menarche: 12 Physical Exam Vital Signs: Last Vital Signs Pulse 91 05/29/25 09:04 BP 134/76 05/29/25 09:04 Pulse Ox 95 05/29/25 09:04 Oxygen Delivery Method Room Air 05/29/25 09:04 BMI result Body Mass Index 26.2 Const General: cooperative and comfortable Nutritional Appearance: average body habitus Orientation/consciousness: patient oriented x3 HEENT Face and sinus: Yes face symmetric Teeth and gingiva: other (mallampti score is 3) Eyes Pupils: Equal, round and reactive pupils present Neck Neck: Yes full ROM Resp Effort & Inspection: normal respiratory effort and able to speak in complete sentences Neuro General: patient oriented x3 and moves all extremities Cranial nerves: Yes Equal, round and reactive pupils present, Yes Normal accommodation reflex present, Yes Normal facial strength present, Yes Midline tongue present, Yes Ability to bilaterally rotate head present and Yes Ability to bilaterally elevate shoulders present Cognition (Neuro): normal cognition Gait exam (Neuro): Normal gait present Motor exam (neuro): 5/5 motor strength present throughout and Normal motor muscle tone present throughout Psych Appearance: grossly normal Speech and movement: Normal speech and movement present Thought process: Normal thought process present Results Reviewed Results Reviewed: HST reviewed with pt. AHI is 7 and oxygen Nadirs to 83%. Will start her on Apap therapy and monitor for compliance. Assessment & Plan Assessment & Plan (1) Mild cognitive disorder: Code(s): F09 - Unspecified mental disorder due to known physiological condition Category: Medical (2) Excessive daytime sleepiness: Code(s): G47.19 - Other hypersomnia Category: Medical Plan Mild ree, HST reviewed with pt today, will start her on Autopap therapy and monitor for compliance. Supply order for Apap rx. Mild Cognitive changes, continue to take B1, Vit D, Pierce 3 fatty supplements. Exercise daily, walking is a good place to start for 15min to 30 min daily. Start to drink plenty of water, get a good nights rest. Continue to see therapist for mood disorders, MDD Labs B12/ TSH/ Vit D/ CBC/CMP MMA / Homocysteine and Ferritin MRI in the future if MMSE is poor. Orders: Orders Comprehensive Met. Panel Today F09 - Unspecified mental disorder due to known physiological condition, G47.19 - Other hypersomnia Ferritin Today F09 - Unspecified mental disorder due to known physiological condition, G47.19 - Other hypersomnia Methylmalonic Acid Today F09 - Unspecified mental disorder due to known physiological condition, G47.19 - Other hypersomnia, G47.9 - Sleep disorder, unspecified, R53.83 - Other fatigue Homocysteine Today F09 - Unspecified mental disorder due to known physiological condition, G47.19 - Other hypersomnia, G47.9 - Sleep disorder, unspecified, R53.83 - Other fatigue Vitamin D 25-OH Total Today F09 - Unspecified mental disorder due to known physiological condition, G47.19 - Other hypersomnia Vitamin B12 and Folate Today F09 - Unspecified mental disorder due to known physiological condition, G47.19 - Other hypersomnia Complete Blood Count no Diff Today F09 - Unspecified mental disorder due to known physiological condition, G47.19 - Other hypersomnia Vitamin B1 Today F09 - Unspecified mental disorder due to known physiological condition, G47.19 - Other hypersomnia TSH reflex Free T4 Today F09 - Unspecified mental disorder due to known physiological condition, G47.19 - Other hypersomnia Patient Instructions: Sleep Hygiene provided: set a scheduled bedtime and wake time to help regulate the circadian rhythm and balance the release of pituitary hormones. Sleep in a dark room, temperatures below 68 degrees, and no devices n bed. Limit caffeinated products 6 hours prior to bed, and limit fluids 2-4 hours prior to bed. Gentle night yoga, diffusing essential oils, and playing soft music can be relaxing. Coding Level of Care Code Est Pt Level 4 (98057) Diagnoses Mild cognitive disorder F09 Excessive daytime sleepiness G47.19
--- OUTSIDE RECORDS SUMMARY | 2025-05-29 09:24 | XMS_ITS | Clinical Summary ---
Author Organization [employer] Address [address] [facility] [address] [place] [address] Care Team Providers Care Clothes Ironer Name Role Phone Unavailable Primary Care Provider [...] COVID-19 Vaccine ( - 2023-2 5 season) 2025 Influenza Vaccine (#1) 2025 Zoster Vaccines (1 [...]
--- OUTSIDE RECORDS SUMMARY | 2025-05-29 09:24 | XMS_ITS | Clinical Summary ---
Author Organization [facility] Address [address] [place] [address] Care Team Providers Care Computer Forwarding System Markup Clerk Name Role Phone Beverly Landis MD Primary Care Prov ider Tameka Aquino LAUNDROMAT WORKER Unavailable [phone] Anastasia Bailon LAUNDROMAT WORKER Unavailable [phone] John Morrissey SKI MOLDER Unavailable [phone] Lew Barahona SKI MOLDER Unavailable [phone] Yary Carbajal HAM SAWYER Unavailable [phone] Nell Kc HAM SAWYER Unavailable Allergies No known active allergies Medications [...] series) 1998 Pap Smear (Ages 21-65) 2000 Mammogram 2019 Colonoscopy 2024 Influenza Vaccine 03/16/2025 COVID-19 Vaccine ( - 2024-2 6 season) 2025 03/14/2021, 02/21/2021 HPV Vaccines (No Doses Required) Completed Pneumococcal Vaccine: Pediatric (0-5 Years) and At-Risk Patients (6 to 49 Years) Aged Out No longer eligible b ased on patient's age to complete this topic Goals Goal Patient Goal Type Associated Problems Recent Progress Patient-Stated? Author Achieve a quality of life that is substance free on a continuing basis. Care Plan ADD-Substance Use Disorders No Raven Yary Sorenson, HAM SAWYER [phone] Take medication as prescribed by physician and report as to effectiveness and side effects. Care Plan ADD-Substance Use Disorders No Yary Carbajal LCSW [phone] List the social, emotional, and family factors that contributed to substance dependence. Care Plan ADD-Substance Use Disorders No Yary Carbajal LCSW MARS GOAL 8 - Feel good about myself Care Plan ADD-Substance Use Disorders No Yary Carbajal LCSW Note: Additional Health Concerns Active Problems Noted Date Diagnosed Date ADD-Substance Use Disorders 12/09/2021 Insurance [facility] Care Teams Computer Forwarding System Markup Clerk Relationship Specialty Start Date End Date Beverly Landis MD [address] [place] [id number] PCP - General Family Medicine 09/29/19 Tameka Aquino APRN [address] [place] [phone] Nurse Practitioner Otolaryngology 09/29/19 Anastasia Bailon APRN [address] [place] [address] Nurse Practitioner Psychiatry, General 11/21/21 John Morrissey LPC [address] [place] [address] Team Driver Social Work 11/26/21 Lew Barahona LPC [address] [place] [address] Team Driver Clinical Social Work 11/26/21 Yary Carbajal HAM SAWYER [address] [place] [address] Team Driver Clinical Social Work 11/26/21 Nell Kc HAM SAWYER [address] [place] [phone] Team Driver Clinical Social Work 12/09/21
== END 2025-05-29 09:48 | disposition home or self-care (01) ==
LOC: HO.HSMS 08:54
PROVIDERS: PCP Family Medicine; Visit Provider Physician Assistant Medical
DX: R41.89 Other symptoms and signs involving cognitive functions and awareness (principal); G47.19 Other hypersomnia
CPT/HCPCS: 99214

== ENCOUNTER → 2025-05-29 08:53 | Outpatient (BNVA) | payer OTHER, SELFPAY | PROVIDERS: PCP Family Medicine; Visit Provider Physician Assistant Medical | DX: R41.89 Other symptoms and signs involving cognitive functions and awareness (principal); F09 Unspecified mental disorder due to known physiological condition; G47.19 Other hypersomnia | CPT/HCPCS: 99212 ==

== ENCOUNTER 2025-06-28 10:47 | Outpatient (REF) | payer OTHER, SELFPAY ==
[2025-06-28 14:34] LABS: Hematocrit 41.3 % (37.0-47.0); Hemoglobin 13.5 g/dl (12.0-16.0); Mean Corpuscular HGB Conc 32.7 g/dl (31.0-35.0); Mean Corpuscular Hemoglobin 32.4 pg (27.0-33.0); Mean Corpuscular Volume 99.0 fL (80.0-98.0); NRBC Abs Auto 0.000 X10*3/uL (0.0-0.012); NRBC Pct Auto 0.0 /100WBC (0.0-0.2); Platelet Count 194 X10*3/uL (160-400); Red Blood Count 4.17 X10*6/uL (4.20-5.50); White Blood Count 7.4 X10*3/uL (4.8-10.8)
[2025-06-28 15:02] LABS: Alanine Aminotransferase 29 U/L (0-31); Albumin Level 4.5 g/dL (3.5-5.0); Alkaline Phosphatase 50 U/L (39-117); Anion Gap 11 (12-20); Aspartate Amino Transferase 39 U/L (5-31); Blood Urea Nitrogen 10 mg/dL (9-16); Calcium 9.3 mg/dL (8.4-10.2); Carbon Dioxide 25 mmol/L (22-29); Chloride 107 mmol/L (96-108); Estimated Glomerular Filt Rate > 60; Potassium 4.0 mmol/L (3.3-5.1); Sodium 139 mmol/L (135-145); Total Protein 6.9 g/dL (6.5-8.0)
[2025-06-28 15:28] LABS: Ferritin 40 ng/mL (10-250)
[2025-06-28 16:16] LABS: Folate 10.6 ng/mL (> or = 4.0); Vitamin B12 511 pg/mL (200-900)
[2025-06-28 17:37] LABS: Free T4 (Free Thyroxine) 0.89 ng/dL (0.71-1.85)
== END 2025-06-28 10:48 | disposition home or self-care (01) ==
LOC: HO.WFDLDS 10:47
PROVIDERS: PCP Family Medicine; Referring Provider Physician Assistant Medical; Visit Provider Family Medicine
DX: Z00.00 Encounter for general adult medical examination without abnormal findings (principal); I10 Essential (primary) hypertension; G47.19 Other hypersomnia; F09 Unspecified mental disorder due to known physiological condition; R53.83 Other fatigue; G47.30 Sleep apnea, unspecified; H91.90 Unspecified hearing loss, unspecified ear; M79.7 Fibromyalgia; F41.8 Other specified anxiety disorders; G89.29 Other chronic pain; Z59.87 Material hardship due to limited financial resources, not elsewhere classified; Z79.899 Other long term (current) drug therapy
CPT/HCPCS: 36415; 80053; 82306; 82607; 82728; 82746; 83921; 84425; 84439; 84443; 85027; 99212

== ENCOUNTER 2025-06-28 10:47 | Outpatient (AMB) | payer OTHER, SELFPAY ==
--- NOTE | 2025-06-28 10:55 | MHC.PC.OV ---
Vital Signs 06/28/25 10:57 Height 5 ft Weight 133 lb 2 oz BMI 26.0 BP 120/76 Blood Pressure Location Rt brachial Position Sitting Respiration 12 Pulse 84 Pulse Source Pulse Oximeter Temp 99.0 F Temp Source Oral Pulse Oximetry (%) 97 Oxygen Delivery Method Room Air Intake Visit Reasons: f/u HTN Intake Note: patient is scheduled to follow up on htn with pcp Wood Bucker Required: No Allergies No Known Allergies Allergy (Verified 06/28/25 10:56) Medication List - Last Reconciled 06/28/25 by Dmitry Orellana MD albuterol sulfate 90 mcg/actuation 2 puffs inhalation Q4H PRN 30 days bupropion HCl XL 300 mg PO DAILY bupropion HCl XL (Wellbutrin XL) 150 mg PO QAM cariprazine (Vraylar) 4.5 mg PO DAILY clonidine HCl 0.1 mg PO TID PRN 30 days diclofenac sodium 1% (Arthritis Pain (diclofenac)) 4 grams topical BID 30 days esomeprazole magnesium (Nexium) 40 mg PO DAILY 90 days famotidine 20 mg PO DAILY ferrous sulfate 325 mg PO DAILY 90 days lamotrigine 200 mg PO DAILY losartan 25 mg PO DAILY 90 days meloxicam 15 mg PO DAILY 30 days polyethylene glycol 3350 (Miralax) 238 grams PO ONCE pregabalin 300 mg PO BEDTIME 30 days thiamine HCl (vitamin B1) 100 mg PO DAILY trazodone 75 mg PO BEDTIME Tobacco use date assessed: 04/17/25 Dental Screening Dental Screen Date: 04/17/25 HPI f/u HTN HPI Details 45 y/o female presents to f/u HTN. Had started her on losartan last time. Blood pressure today 120/76, 84p. Denies any issues with losartan. Recent sleep study did show mild sleep apnea. Pt had been having L ear hearing changes. She has not heard anything from audiology yet. Reports difficulties with financial health/bills. [facility] Medical History Word finding difficulty Hypersomnia Snoring Elevated cholesterol Anxiety Hiatal hernia COPD (chronic obstructive pulmonary disease) Cocaine abuse Alcohol dependence Fibromyalgia Chronic post-traumatic stress disorder (PTSD) Depression Surgical History Hx of dilation and curettage H/O tubal ligation S/P carpal tunnel release History of esophagogastroduodenoscopy (EGD) H/O colonoscopy H/O section Family History Maternal Grandmother Colon cancer Family/Other Lung cancer Family/Other Breast cancer, Onset Age: 49 Social History Household Members: Friend(s) Household Members Other:: yes. Housing: Homeless Housing Other:: Friend's trailer Do you presently have visiting nurse or other home services: No Alcohol intake: current Alcohol intake frequency: other Alcohol type: hard liquor Comment: per patient sober for about 7 months 09/06/22 Patient Tobacco Use Status: Current everyday Tobacco user Tobacco use type: Cigarette Cigarette Packs Per Day: 0.5 Cigarettes Per Day: 10.0 Years Smoked: 29 e-Cigarette/Vaping Use: Never Used Second Hand Smoke Exposure: Yes Substance Use Type: Crack/Cocaine and Marijuana service: No Current occupational status: employed Sexual orientation: Did not discuss Cognitive needs: No Hearing needs: No Vision needs: No Female Reproductive History Menstrual Age of Menarche: 12 Questionnaire Thrive Questionnaire Date Thrive assessed: 01/17/25 I am a: Patient What is your living situation today?: I have a steady place to live Within the past 12 months, did the food you bought not last and you didn't have the money to get more?: Sometimes True Within the past 12 months, did you worry whether your food would run out before you got money to buy more?: Sometimes True Do you have trouble paying for medicines?: I choose not to answer this question Do you have trouble getting transportation to medical appointments?: Yes Do you have trouble paying your heating and electricity bill?: No Do you have trouble taking care of your child, family member or friend?: No Do you have trouble with day-to-day activities such as bathing, preparing meals, shopping, managing finances, etc.?: No Are you currently unemployed and looking for a job?: No Are you interested in more education?: I choose not to answer this question Please select the resources that you would like help with: Transportation Currently or been in a relationship where the following occur: I choose not to answer THRIVE Score: 3 JOYCE-7 AMB Questionnaire JOYCE-7 Date JOYCE - 7 assessed: 06/06/24 Source: Developed by Drs. Troy Felipe, Lucrecia Soto, Jermaine Escobar and colleagues, with an educational ez from [employer]. Review of Systems Const Denies chills, Denies fatigue, Denies fever(s), Denies headache(s) and Denies weakness ENT Denies dizziness and Denies headache(s) Card Denies dyspnea Resp Denies cough, Denies dyspnea, Denies wheezing and Denies other (shortness of breath) Musc Denies numbness and Denies tingling Neuro Denies dizziness, Denies headache(s), Denies numbness, Denies tingling and Denies weakness Psych Reports anxiety and Reports depression Endo Denies fatigue Aller/Immun Denies wheezing Physical exam (Primary Care) Vital Signs: Last Vital Signs Temp 99.0 F 06/28/25 10:57 Pulse 84 06/28/25 10:57 Resp 12 06/28/25 10:57 BP 120/76 06/28/25 10:57 Pulse Ox 97 06/28/25 10:57 Oxygen Delivery Method Room Air 06/28/25 10:57 BMI result Body Mass Index 26.0 Tobacco/Smoking Status: Tobacco use Status Tobacco use date assessed 04/17/25 06/28/25 10:59 Patient Tobacco Use Status Current everyday Tobacco 06/28/25 10:59 Tobacco use type Cigarette 06/28/25 10:59 e-Cigarette/Vaping Use Never Used 06/28/25 10:59 Thrive Assessment: Date of Thrive Assessment Date Thrive assessed 01/17/25 06/28/25 10:59 Currently or been in a relationship where the following occur: I choose not to answer Const General: well developed; No acute distress Nutritional Appearance: well nourished Orientation/consciousness: patient oriented x3 HENMT Head: Yes normocephalic and Yes atraumatic Eyes General: appearance normal, both eyes and all related structures Pupils: Equal, round and reactive pupils present EOM: EOMs intact bilaterally Resp Effort & Inspection: normal respiratory effort Neuro General: patient oriented x3 and gait normal Cranial nerves: Yes Equal, round and reactive pupils present Psych Affect: normal affect Coding Level of Care Code Est Pt Level 5 (91713) Diagnoses Hypertension I10 Sleep apnea G47.30 Hearing loss H91.90 Fibromyalgia M79.7 Depression with anxiety F41.8 Assessment & Plan Assessment & Plan (1) Hypertension: Code(s): I10 - Essential (primary) hypertension Category: Medical Plan: Blood pressure is controlled today. Goal is less than 140/90 Continue losartan (2) Sleep apnea: Code(s): G47.30 - Sleep apnea, unspecified Category: Medical Plan: Patient was evaluated for sleep apnea. Diagnosed with mild sleep apnea and recommendation is for auto PAP She has not picked this up yet and is concerned about cost. Follow-up with Neurology as recommended (3) Hearing loss: Code(s): H91.90 - Unspecified hearing loss, unspecified ear Category: Medical Plan: Patient has not been contacted by audiology yet. I gave her the phone number and I have asked office staff to check on the status of this referral (4) Fibromyalgia: Code(s): M79.7 - Fibromyalgia Category: Medical Plan: Ongoing chronic pain She is taking pregabalin and meloxicam. 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 They have provided her a chair which is her relief and allows her to work. She would like a letter to support this and I will provide her with this. Feel that as a medical necessity she needs a chair to prevent her from standing on feet for long periods of time. (5) Depression with anxiety: Code(s): F41.8 - Other specified anxiety disorders Category: Medical Plan: Followed by psychiatry Continue to follow with you psychiatrist and therapist for adjustments of your medications such as Vrylar - patient notes she is concerned she will not be able to afford this. Follow-up with psych Orders: Orders Microalbumin, Random (w Creat) 06/28/25 I10 - Essential (primary) hypertension Referrals Nurse Navigator Referral Z59.87 - Material hardship due to limited financial resources, not elsewhere classified Pain Management Referral G89.29 - Other chronic pain, M79.7 - Fibromyalgia Medications: New diclofenac sodium 1% (Arthritis Pain (diclofenac)) apply to single knee, ankle, foot; for foot includes sole/toes/top of foot 4 grams topical BID 200 grams 2RF 30 days
[2025-06-28 10:57] VITALS: BP 120/76; PULSE 84; RESP 12; TEMP 37.2; O2SAT 97; BMI 26.0
--- OUTSIDE RECORDS SUMMARY | 2025-06-28 13:20 | XMS_ITS | Clinical Summary ---
Author Organization [facility] Address [address] [place] [address] Care Team Providers Care Sales And Marketing Director Name Role Phone Beverly Landis MD Primary Care Prov ider Tameka Aquino PRODUCTION SUPPORT ANALYST Unavailable [phone] Anastasia Bailon PRODUCTION SUPPORT ANALYST Unavailable [phone] John Morrissey PILOT CAN ROUTER Unavailable Lew Barahona PILOT CAN ROUTER Unavailable [phone] Yary Carbajal IT SYSTEMS MANAGER Unavailable [phone] Nell Kc IT SYSTEMS MANAGER Unavailable [phone] Allergies No known active allergies Medications * [...] ADD-Substance Use Disorders No Raven Yary Sorenson, IT SYSTEMS MANAGER [phone] Take medication as prescribed by physician [...] Diagnosed Date ADD-Substance Use Disorders 12/09/2021 Insurance [facility] Care Teams Sales And Marketing Director Relationship Specialty Start Date End Date Beverly Landis MD [address] [place] [phone] PCP - General Family Medicine 09/29/19 Tameka Aquino APRN [address] [place] [id number] Nurse Practitioner Otolaryngology 09/29/19 Anastasia Bailon APRN [address] [place] [address] Nurse Practitioner Psychiatry, General 11/21/21 John Morrissey LPC [address] [place] [address] Production Cell Leader Social Work 11/26/21 Lew Barahona LPC [address] [place] [address] Production Cell Leader Clinical Social Work 11/26/21 Yary Carbajal IT SYSTEMS MANAGER [address] [place] [phone] Production Cell Leader Clinical Social Work 11/26/21 Nell Kc IT SYSTEMS MANAGER [address] [place] [address] Production Cell Leader Clinical Social Work 12/09/21
--- OUTSIDE RECORDS SUMMARY | 2025-06-28 13:20 | XMS_ITS | Clinical Summary ---
Author Organization [employer] Address [address] [facility] 7 [place] [address] Care Team Providers Care Tool Maintenance Technician Name Role Phone Unavailable Primary Care Provider [...] 2009 Mammogram 2019 COVID-19 Vaccine ( - 2024-2 6 season) 2025 Influenza Vaccine (#1) 2025 Zoster [...] patient's age to complete this topic Insurance [facility]
== END 2025-06-28 11:33 | disposition home or self-care (01) ==
LOC: HO.HMCFM 10:48
PROVIDERS: PCP Family Medicine; Visit Provider Family Medicine
DX: I10 Essential (primary) hypertension (principal); G47.30 Sleep apnea, unspecified; H91.90 Unspecified hearing loss, unspecified ear; M79.7 Fibromyalgia; F41.8 Other specified anxiety disorders